=== PATIENT | male | born 1965 | race Caucasian/White ===

== ENCOUNTER 2025-08-05 21:12 | Emergency (ER) | payer BC, SELFPAY ==
--- NOTE | 2025-08-05 | ECG_ITS ---
Test Reason : DIZZINESS Blood Pressure : */* mmHG Vent. Rate : 66 BPM Atrial Rate : 66 BPM P-R Int : 188 ms QRS Dur : 100 ms QT Int : 412 ms P-R-T Axes : 19 24 37 degrees QTcB Int : 431 ms Normal sinus rhythm Normal ECG No previous ECGs available Referred By: Generic ED Physician Electronically Signed By: MANJEET AMAYA
--- NOTE | ~2025-08-05 | CT_ITS ---
CLINICAL HISTORY: syncope, head injury, n v CT head without contrast Comparison: None provided Findings: No intra-axial mass, midline shift, hydrocephalus, or acute hemorrhage. No significant atrophy-like change or white matter disease. The visualized paranasal sinuses and mastoid air cells are normal. The orbits are unremarkable. No skull fracture. IMPRESSION: 1. No acute intracranial findings. This document has been electronically signed by: Saeed Kaur MD on 08/05/2025 22:28:30
[2025-08-05 21:35] VITALS: BP 164/95; PULSE 66; RESP 20; TEMP 36.4; O2SAT 95; BMI 44.4
[2025-08-05 21:55] LABS: MANUAL DIFF FLAG NO
[2025-08-05 21:56] LABS: Hematocrit 42.4 % (42.0-52.0); Hemoglobin 14.1 g/dl (14.0-18.0); Imm Gran Abs Auto 0.16 X10*3/uL (0.00-0.03); Imm Gran Pct Auto 1.1 % (0.0-0.4); Lymphocytes Absolute Auto 3.2 X10*3/uL (1.2-4.9); Mean Corpuscular HGB Conc 33.3 g/dl (31.0-36.0); Mean Corpuscular Hemoglobin 26.9 pg (27.0-33.0); Mean Corpuscular Volume 80.8 fL (80.0-98.0); NRBC Abs Auto 0.000 X10*3/uL (0.0-0.012); NRBC Pct Auto 0.0 /100WBC (0.0-0.2); Platelet Count 413 X10*3/uL (160-400); Red Blood Count 5.25 X10*6/uL (4.60-5.80); SCAN SMEAR FLAG 1; White Blood Count 15.0 X10*3/uL (4.8-10.8)
[2025-08-05 22:14] LABS: Alanine Aminotransferase 29 U/L (0-40); Albumin Level 4.2 g/dL (3.5-5.0); Alkaline Phosphatase 127 U/L (39-117); Anion Gap 14 (12-20); Aspartate Amino Transferase 14 U/L (5-37); Blood Urea Nitrogen 27 mg/dL (9-16); Calcium 8.9 mg/dL (8.4-10.2); Carbon Dioxide 23 mmol/L (22-29); Chloride 102 mmol/L (96-108); Creatinine Clr Calc Pharmacy 92.1; Estimated Glomerular Filt Rate > 60; Potassium 3.7 mmol/L (3.3-5.1); Sodium 135 mmol/L (135-145); Total Protein 6.7 g/dL (6.5-8.0)
[2025-08-05 22:15] VITALS: O2SAT 96
--- OUTSIDE RECORDS SUMMARY | 2025-08-05 22:16 | XMS_ITS | Clinical Summary ---
Author Organization [facility] Address [address] [place] [address] Care Team Providers Care Mutton Puncher Name Role Phone Md, Unknown Primary Care Provider Unavailabl e Allergies Active Allergy Reactions Criticality Noted Date Comments Oxycodone-Acetaminop hen Hives,Itching,Nausea And Vomiting Medium 05/12/2016 Stomach itches itchy Stomach itches itchy Sulfamethoxazole-Tri methoprim Nausea And Vomiting Low 10/05/2024 Medications No known medications Active Problems No known active problems Social History Tobacco Use Types Packs/Day Years Used Date Smoking Tobacco: Never Assessed Sex and Gender Information Value Date Recorded Sex Assigned at Not on file Legal Sex Male 2:45 PM EST Gender Identity Not on file Sexual Orientation Not on file Last Filed Vital Signs Vital Sign Reading Time Taken Comments Blood Pressure 139/82 01/31/2025 6:38 PM EDT Pulse - - Temperature 37.3 C (99.2 F) 01/31/2025 6:38 PM EDT Respiratory Rate 18 01/31/2025 6:38 PM EDT Oxygen Saturation 97% 01/31/2025 6:38 PM EDT Inhaled Oxygen Concentration - - Weight 130.8 kg (288 lb 5.8 oz) 01/31/2025 6:38 PM EDT Height 175.3 cm (5' 9 ) 01/31/2025 6:38 PM EDT Body Mass Index 42.58 01/31/2025 6:38 PM EDT Plan of Treatment Scheduled Referrals Name Type Priority Associated Diagnoses Order Schedule Ambulatory referral to Physical Therapy Outpatient Referral Routine Concussion without loss of consciousness, initial encounter Sprain of ligaments of cervical spine, initial encounter Sprain of ligaments of lumbar spine, initial encounter Sprain of ligaments of thoracic spine, initial encounter Expected: 02/11/2025 (Approximate), Expires: 02/11/2026 Health Maintenance Due Date Last Done Comments CT Colonography 1963 FIT-DNA 1963 FIT 1963 FOBT 1963 Hepatitis C Screening 1963 Ophthalmology Exam 1973 Annual Physical Exam 1981 RSV 60+ (1 - Risk 50-74 years 1-dose series) 2013 COVID-19 Vaccine ( season) 2025 09/18/2023, 08/24/2021, 11/01/2020, Additional history exists Influenza Vaccine (#1) 2025 , 07/08/2023, 07/10/2022, Additional history exists Urine Protein Screening 10/07/2025 10/07/2024 Tdap and Td Vaccines Adult 01/17/2033 01/17/2023 Colonoscopy 06/04/2034 06/04/2024 Colorectal Cancer Screening 06/04/2034 Sigmoidoscopy 06/04/2034 06/04/2024 Lipid Panel Discontinued 12/11/2017 Pneumococcal Vaccine: 50+ Years Completed 01/17/2023 Zoster Vaccines Completed 03/21/2023, 01/17/2023 HIB Vaccines Aged Out 08/03/2024 No longer eligi ble based on patient's age to complete this topic Meningococcal Vaccine Aged Out 09/09/2024 , 09/09/2024, 08/03/2024, Additional history exists No longer eligible based on patient's age to complete this topic HPV Vaccines (No Doses Required) Completed Hepatitis A Vaccines Aged Out No long er eligible based on patient's age to complete this topic IPV Vaccines Aged Out No longer eligi ble based on patient's age to complete this topic RSV <20 Months Aged Out No longer naya gible based on patient's age to complete this topic Procedures Procedure Name Priority Date/Time Associated Diagnosis Comments LIPID PANEL WITH RATIOS Routine 12/11/2017 2:02 PM EDT from Last 3 Months or Most Recently Relevant to Health Maintenance Results * (ABNORMAL) Lipid Panel with Ratios (12/11/2017 2:02 PM EDT) HDL 51 >=39 mg/dL [facility] Triglycerides 364(H) 30 - 180 mg/dL [facility] Cholesterol 200(H) <=199 mg/dL [facility] % Total 26 [facility] LDL Calculated 76 <=129 mg/dL [facility] 12/11/2017 2:02 PM EDT 12/11/2017 2:02 PM EDT us Rhea Tena HAND ZIPPER TRIMMER LAB BLOOD ORDERABLES Final Res ult [facility]ULT[facility] from Last 3 Months or Most Recently Relevant to Health Maintenance Insurance [facility] Care Teams Mutton Puncher Relationship Specialty Start Date End Date Md, Unknown 1 Dont Change PCP - General 01/31/25
--- OUTSIDE RECORDS SUMMARY | 2025-08-05 22:16 | XMS_ITS | Encounter Summary ---
Author Organization [facility] Address [address] [place] [address] Care Team Providers Care Journeyman Electrician Name Role Phone Lawrence Casanova MD Primary Care Provider + [phone] Lawrence Casanova MD Unavailable [phone] Lydia Wyman DO Unavailable [phone] Katelin Frazier RN Unavailable Erick House DO Unavailable [phone] Sharita Pearson RN Unavailable [phone] Encounter Details Date Type Department Care Team (Late st Contact Info) Description 11/28/2020 Scanned Document [facility] Urologic Surgery [address] [place] [address] Mitchell Cuba MD Social History Tobacco Use Types Packs/Day Years Used Date Smoking Tobacco: Never Smokeless Tobacco: Never Alcohol Use Standard Drinks/Week Comments No 0 (1 standard drink = 0.6 oz pur e alcohol) Sex and Gender Information Value Date Recorded Sex Assigned at Male 10/24/2022 6:05 PM EST Legal Sex Male 6:13 PM EDT Gender Identity Male 10/24/2022 6:05 PM EST Sexual Orientation Heterosexual (straight) 10/24 6:05 PM EST COVID-19 Exposure Response Date Recorded In the last month, have you been in contact with someone who was confirmed or suspected to have Coronavirus / COVID-19? No / Unsure 11/27/2020 3:49 PM EDT documented as of this encounter Plan of Treatment Not on file documented as of this encounter Visit Diagnoses Not on filedocumented in this encounter Additional Health Concerns Infection Onset Date Last Indicated Resolved Time R/O Respiratory Disease 08/21/2024 08/21/202408/08 10:24 AM EST documented as of this encounter Care Teams Journeyman Electrician Relationship Specialty Start Date End Date Lawrence Casanova MD [address] [place] [address] PCP - General Family Medicine 04/07/19 Lawrence Casanova MD [address] [place] [address] PCP - [place] Commercial Attributed 08/08/22 09/07/23 Lydia Wyman DO [address] [place] [address] Primary Flight Security Specialist Cardiovascular Disease 10/18/21 Katelin Frazier RN [address] [place] [address] Oncology Nurse Navigator 07/29/24 Erick House DO [address] [phone] Physician Hematology Oncology 07/29/25 Sharita Pearson, WAGNER [address] [place] [phone] Oncology Nurse Navigator 07/29/25 documented as of this encounter
--- OUTSIDE RECORDS SUMMARY | 2025-08-05 22:16 | XMS_ITS | Encounter Summary ---
Author Organization [facility] Address [address] [place], [place] [address] Care Team Providers Care Vice President Sales Name Role Phone Lawrence Casanova MD Primary Care Provider [phone] Lydia Wyman DO Unavailable [phone] Katelin Frazier RN Unavailable Erick House DO Unavailable Sharita Pearson RN Unavailable Encounter Details Date Type Department Care Team (Late st Contact Info) Description 05/11/2025 Scanned Document [facility] [address] [phone] Chrissy Davidson [address] [facility] [address] [place] [address] Social History Tobacco Use Types Packs/Day Years Used Date Smoking Tobacco: Never Smokeless Tobacco: Never Alcohol Use Standard Drinks/Week Comments No 0 (1 standard drink = 0.6 oz pur e alcohol) [facility] Utilities Answer Date Recorded In the past 12 months has [employer] electric, gas, oil, or water company threatened to shut off services in your home? No 08/20/2024 AUDIT-C Answer Date Recorded Q1: How often do you have a drink containing alcohol? Never 08/03/2024 Q2: How many drinks containi ng alcohol do you have on a typical day when you are drinking? Patient does not drink Q3: How often do you have si x or more drinks on one occasion? Never 08/03/2024 PHQ-2 Answer Date Recorded PHQ-2 Total Score 0 12/14/2024 Hunger Vital Sign Answer Date Recorded Within the past 12 months, y ou worried that your food would run out before you got the money to buy more. Never true 08/20/20 24 Within the past 12 months, t he food you bought just didn't last and you didn't have money to get more. Never true 08/20/2024 PRAPARE - Transportation Answer Date Re corded In the past 12 months, has l ack of transportation kept you from medical appointments or from getting medications? No 08/08 In the past 12 months, has l ack of transportation kept you from meetings, work, or from getting things needed for daily living? No 08/20/2024 Housing Stability Vital Sign Answer Walter e Recorded In the last 12 months, was t here a time when you were not able to pay the mortgage or rent on time? No 08/20/2024 In the past 12 months, how m any times have you moved where you were living? 1 08/20/2024 At any time in the past 12 m [facility], were you homeless or living in a longterm (including now)? No 08/20/2024 Sex and Gender Information Value Date Recorded Sex Assigned at Male 10/24/2022 6:05 PM EST Legal Sex Male 6:13 PM EDT Gender Identity Male 10/24/2022 6:05 PM EST Sexual Orientation Heterosexual (straight) 10/24 6:05 PM EST documented as of this encounter Plan of Treatment Not on file documented as of this encounter Visit Diagnoses Not on filedocumented in this encounter Care Teams Vice President Sales Relationship Specialty Start Date End Date Lawrence Casanova MD [address] [place] [address] PCP - General Family Medicine 04/07/19 Lydia Wyman DO [address] [place] [address] Primary Manager Radiation Cardiovascular Disease 10/18/21 Katelin Frazier, WAGNER [address] [place] [address] Oncology Nurse Navigator 07/29/24 Erick House DO [address] [phone] Physician Hematology Oncology 07/29/25 Sharita Pearson RN [address] [phone] Oncology Nurse Navigator 07/29/25 documented as of this encounter
--- OUTSIDE RECORDS SUMMARY | 2025-08-05 22:16 | XMS_ITS | Encounter Summary ---
Author Organization [facility] Address [address] [place] [address] Care Team Providers Care Clinic Clerk Name Role Phone Md, Unknown Primary Care Provider Unavailabl e Encounter Details Date Type Department Care Team ([facility] st Contact Info) Description 01/31/2025 Procedure Pass [facility], Radiology (CT Scan) [address] [place] [address] [phone] Social History Tobacco Use Types Packs/Day Years Used Date Smoking Tobacco: Never Assessed Sex and Gender Information Value Date Recorded Sex Assigned at Not on file Legal Sex Male 2:45 PM EST Gender Identity Not on file Sexual Orientation Not on file documented as of this encounter Plan of Treatment Not on file documented as of this encounter Visit Diagnoses Not on filedocumented in this encounter Care Teams Clinic Clerk Relationship Specialty Start Date End Date Md, Unknown 1 Dont Change PCP - General 01/31/25 documented as of this encounter
--- OUTSIDE RECORDS SUMMARY | 2025-08-05 22:16 | XMS_ITS | Encounter Summary ---
Author Organization [facility] Address [address] [place] [address] Care Team Providers Care Bottom Polisher Name Role Phone Lawrence Casanova MD Primary Care Provider + [phone] Lawrence Casanova MD Unavailable [phone] Lydia Wyman DO Unavailable [phone] Katelin Frazier RN Unavailable Erick House DO Unavailable Sharita Pearson RN Unavailable Encounter Details Date Type Department Care Team (Late st Contact Info) Description 08/11/2023 Scanned Document [facility] [address] [place] [phone] Brittnee Hartman MD [address] [place] [address] Social History Tobacco Use Types Packs/Day Years [...] documented as of this encounter Care Teams Bottom Polisher Relationship Specialty Start Date End Date Lawrence Casanova MD [address] [place] [address] PCP - General Family Medicine 04/07/19 Lawrence Casanova MD [address] [place] [address] PCP - [place] Commercial Attributed 08/08/22 09/07/23 Lydia Wyman DO [address] [place] [address] Driver Cardiovascular Disease 10/18/21 Katelin Frazier RN [address] [place] [address] Oncology Nurse Navigator 07/29/24 Erick House DO [address] [phone] Physician Hematology Oncology 07/29/25 Sharita Pearson RN [address] [phone] Oncology Nurse Navigator 07/29/25 documented as of this encounter
--- OUTSIDE RECORDS SUMMARY | 2025-08-05 22:16 | XMS_ITS | Encounter Summary ---
Author Organization [facility] Address [address] [place] [address] Care Team Providers Care Electrical And Instrument Engineer Name Role Phone Lawrence Casanova MD Primary Care Provider [phone] Lydia Wyman DO Unavailable [phone] Katelin Frazier RN Unavailable [phone] Erick House DO Unavailable [phone] Sharita Pearson RN Unavailable [phone] Encounter Details Date Type Department Care Team (Late st Contact Info) Description 01/18/2025 Scanned Document [address] [facility] [address] [place] [phone] Provider, Generic Social History Tobacco Use Types Packs/Day Years Used Date Smoking Tobacco: Never Smokeless Tobacco: Never Alcohol Use Standard Drinks/Week Comments No 0 (1 standard drink = 0.6 oz pur e alcohol) [facility] Utilities Answer Date Recorded In the past 12 months has [employer], gas, oil, or water company threatened to [...] any time in the past 12 m [facility], were you homeless or living in a correction (including now)? No 08/20/2024 Sex and Gender [...] on filedocumented in this encounter Care Teams Electrical And Instrument Engineer Relationship Specialty Start Date End Date Lawrence Casanova MD [address] [place] [address] PCP - General Family Medicine 04/07/19 Lydia Wyman DO [address] [place] [address] Primary Cognos Architect Cardiovascular Disease 10/18/21 Katelin Frazier, RN [address] [place] [address] Oncology Nurse Navigator 07/29/24 Erick House DO 5 [facility] [address] [address] Physician Hematology Oncology 07/29/25 Sharita Pearson RN [address] [phone] Oncology Nurse Navigator 07/29/25 documented as of this encounter
--- OUTSIDE RECORDS SUMMARY | 2025-08-05 22:16 | XMS_ITS | Encounter Summary ---
Author Organization [facility] Address [address] [place] [address] Care Team Providers Care Boxing Machine Operator Name Role Phone Lawrence Casanova MD Primary Care Provider [phone] Lydia Wyman DO Unavailable [phone] Katelin Frazier RN Unavailable Erick House DO Unavailable [phone] Sharita Pearson RN Unavailable Encounter Details Date Type Department Care Team (Late st Contact Info) Description 05/30/2025 Scanned Document [facility] [address] [address] Kirt Dutton MD [address] [place] [address] [address] [place] [address] Social History Tobacco Use Types Packs/Day Years Used Date Smoking Tobacco: Never Smokeless Tobacco: Never Alcohol Use Standard Drinks/Week Comments No 0 (1 standard drink = 0.6 oz pur e alcohol) [facility] Utilities Answer Date Recorded In the past 12 months has [employer], gas, oil, or water company threatened [...] any time in the past 12 m [facility], were you homeless or living in a mcfp (including now)? No 08/20/2024 Sex and Gender [...] on filedocumented in this encounter Care Teams Boxing Machine Operator Relationship Specialty Start Date End Date Lawrence Casanova MD [address] [place] [address] PCP - General Family Medicine 04/07/19 Lydia Wyman DO [address] [place] [address] Primary Residential Sales Cardiovascular Disease 10/18/21 Katelin Frazier RN [address] [place] [address] Oncology Nurse Navigator 07/29/24 Erick House DO [address] [address] Physician Hematology Oncology 07/29/25 Sharita Pearson RN [address] [phone] Oncology Nurse Navigator 07/29/25 documented as of this encounter
--- OUTSIDE RECORDS SUMMARY | 2025-08-05 22:16 | XMS_ITS | Encounter Summary ---
Author Organization [facility] Address [address] [place] [address] Care Team Providers Care Railroad Inspector Name Role Phone Lawrence Casanova MD Primary Care Provider [phone] Lydia Wyman DO Unavailable [phone] Katelin Frazier RN Unavailable Erick House DO Unavailable [phone] Sharita Pearson RN Unavailable [phone] Encounter Details Date Type Department Care Team (Late st Contact Info) Description 06/21/2025 Scanned Document [facility] [address] [address] Kirt Dutton MD [address] [place] [address] Social History Tobacco Use Types Packs/Day Years Used Date Smoking Tobacco: Never Smokeless Tobacco: Never Alcohol Use Standard Drinks/Week Comments No 0 (1 standard drink = 0.6 oz pur e alcohol) [facility] Utilities Answer Date Recorded In the past 12 months has [employer] electric, gas, oil, or water company threatened [...] any time in the past 12 m [facility], were you homeless or living in a mcc (including now)? No 08/20/2024 Sex and Gender [...] on filedocumented in this encounter Care Teams Railroad Inspector Relationship Specialty Start Date End Date Lawrence Casanova MD [address] [place] [address] PCP - General Family Medicine 04/07/19 Lydia Wyman DO [address] [place] [address] Primary Rn Cardiac Rehab Cardiovascular Disease 10/18/21 Katelin Frazier RN [address] [place] [address] Oncology Nurse Navigator 07/29/24 Erick House DO [address] [phone] Physician Hematology Oncology 07/29/25 Sharita Pearson RN [address] [phone] Oncology Nurse Navigator 07/29/25 documented as of this encounter
--- OUTSIDE RECORDS SUMMARY | 2025-08-05 22:16 | XMS_ITS | Clinical Summary ---
Author Organization [facility] Address [address] [place] [address] Care Team Providers Care Marble Ceiling Installer Name Role Phone Yesenia Almaraz HEALTH AND SAFETY INSTRUCTOR Primary Care Provider [phone] Social History Tobacco Use Types Packs/Day Years Used Date Smoking Tobacco: Never Assessed Sex and Gender Information Value Date Recorded Sex Assigned at Not on file Legal Sex Male 1:37 PM EST Gender Identity Not on file Sexual Orientation Not on file Plan of Treatment Not on file Medical Devices Not on file Care Teams Marble Ceiling Installer Relationship Specialty Start Date End Date Yesenia Almaraz, HEALTH AND SAFETY INSTRUCTOR [address] [place] [address] PCP - General [facility] 09/18/23
--- OUTSIDE RECORDS SUMMARY | 2025-08-05 22:16 | XMS_ITS | Encounter Summary ---
Author Organization [facility] Address [address] [place] [address] Care Team Providers Care Insurance Agency Owner Name Role Phone Lawrence Casanova MD Primary Care Provider [phone] Lydia Wyman DO Unavailable [phone] Katelin Frazier RN Unavailable [phone] Erick House DO Unavailable [phone] Sharita Pearson RN Unavailable [phone] Encounter Details Date Type Department Care Team (Late st Contact Info) Description 06/10/2025 Scanned Document [facility] [address] [place] [phone] Daniel Muller MD [address] [facility] [address] [place] [address] Social History Tobacco Use Types Packs/Day Years Used Date Smoking Tobacco: Never Smokeless Tobacco: Never Alcohol Use Standard Drinks/Week Comments No 0 (1 standard drink = 0.6 oz pur e alcohol) [facility] Utilities Answer Date Recorded In the past 12 months has [employer] electric, gas, oil, or water company threatened [...] any time in the past 12 m [facility], were you homeless or living in a assisted (including now)? No 08/20/2024 Sex and Gender [...] on filedocumented in this encounter Care Teams Insurance Agency Owner Relationship Specialty Start Date End Date Lawrence Casanova MD [address] [place] [address] PCP - General Family Medicine 04/07/19 Lydia Wyman DO [address] [place] [address] Primary Piece Meat Trimmer Cardiovascular Disease 10/18/21 Katelin Frazier RN [address] [place] [address] Oncology Nurse Navigator 07/29/24 Erick House DO [address] [phone] Physician Hematology Oncology 07/29/25 Sharita Pearson RN [address] [phone] Oncology Nurse Navigator 07/29/25 documented as of this encounter
--- OUTSIDE RECORDS SUMMARY | 2025-08-05 22:16 | XMS_ITS | Encounter Summary ---
Author Organization [facility] Address [address] [place] [address] Care Team Providers Care Early Morning Babysitter Name Role Phone Lawrence Casanova MD Primary Care Provider [phone] Lydia Wyman DO Unavailable [phone] Katelin Frazier RN Unavailable Erick House DO Unavailable [phone] Sharita Pearson RN Unavailable [phone] Encounter Details Date Type Department Care Team (Late st Contact Info) Description 07/12/2025 Scanned Document [facility] [address] [address] Giselle Matthews MA [address] [place] [address] [phone] Social History Tobacco Use Types Packs/Day Years Used Date Smoking Tobacco: Never Smokeless Tobacco: Never Alcohol Use Standard Drinks/Week Comments No 0 (1 standard drink = 0.6 oz pur e alcohol) [facility] Utilities Answer Date Recorded In the past 12 months has e electric, gas, oil, or water company threatened [...] any time in the past 12 m [facility], were you homeless or living in a care home (including now)? No 08/20/2024 Sex and Gender [...] on filedocumented in this encounter Care Teams Early Morning Babysitter Relationship Specialty Start Date End Date Lawrence Casanova MD [address] [place] [address] PCP - General Family Medicine 04/07/19 Lydia Wyman DO [address] [place] [address] Primary Supervisor Lime Cardiovascular Disease 10/18/21 Katelin Frazier, RN [address] [place] [address] Oncology Nurse Navigator 07/29/24 Erick House DO [address] [phone] Physician Hematology Oncology 07/29/25 Sharita Pearson RN [address] [phone] Oncology Nurse Navigator 07/29/25 documented as of this encounter
--- OUTSIDE RECORDS SUMMARY | 2025-08-05 22:16 | XMS_ITS | Encounter Summary ---
Author Organization [facility] Address [address] [place] [address] Care Team Providers Care Television Production Clerk Name Role Phone Lawrence Casanova MD Primary Care Provider + [phone] Lawrence Casanova MD Unavailable [phone] Lydia Wyman DO Unavailable Katelin Frazier RN Unavailable Erick House DO Unavailable [phone] Sharita Pearson RN Unavailable [phone] Reason for Referral * ENT (Urgent) - Closed Specialty Diagnoses / Procedures Referred By Faraz mcclure Referred To Contact Otolaryngology Diagnoses Recurrent acute suppurative otitis media of right ear Celio Yung, CAT DOG OR OTHER PET GROOMER [address] [place] [address] Phone: tel: fax: [facility] [address] [address] Phone: tel: fax: Referral ID Status Reason Start Date Expiration Date V isits Requested Visits Authorized [id number] Closed Specialty Services Required 01/07/2022 01/08/2023 1 1 Comments Please see mutual patient for ruptured TM - first 11/23/21. ? recurrent vs not healed on 01/04. With hearing loss and infection Encounter Details Date Type Department Care Team (Late st Contact Info) Description 01/07/2022 Community Orders [facility] [address] [facility] [place] [address] Celio Yung APRN [address] [facility] [place], [place] [id number] Recurrent acute suppurative otitis media of right ear (Primary Dx) Social History Tobacco Use Types Packs/Day Years [...] as of this encounter Plan of Treatment Scheduled Referrals Name Type Priority Associated Diagnoses Orde r Schedule Amb Referral to ENT Outpatient Referral Routine Recurrent acute suppurative otitis media of right ear Ordered: 01/07/2022 documented as of this encounter Visit Diagnoses Diagnosis Recurrent acute suppurative otitis media of right ear- Primary documented in this encounter Additional Health Concerns Infection Onset Date Last Indicated Resolved Time R/O Respiratory Disease 08/21/2024 08/21/202408/08 10:24 AM EST documented as of this encounter Care Teams Television Production Clerk Relationship Specialty Start Date End Date Lawrence Casanova MD [address] [facility] [place], [place] [id number] PCP - General Family Medicine 04/07/19 Lawrence Casanova MD [address] [facility] [place] [address] PCP - [place] Commercial Attributed 08/08/22 09/07/23 Lydia Wyman DO [address] [place] [address] Primary Automobile Relocation Engineer Cardiovascular Disease 10/18/21 Katelin Frazier RN [address] [place] [address] Oncology Nurse Navigator 07/29/24 Erick House DO 5 [facility] [address] [address] Physician Hematology Oncology 07/29/25 Sharita Pearson RN [address] [phone] Oncology Nurse Navigator 07/29/25 documented as of this encounter
--- OUTSIDE RECORDS SUMMARY | 2025-08-05 22:16 | XMS_ITS | Encounter Summary ---
Author Organization [facility] Address [address] [place] [address] Care Team Providers Care Septic Tank Service Technician Name Role Phone Lawrence Casanova MD Primary Care Provider + [phone] Lawrence Casanova MD Unavailable [phone] Mitch Rodriguez MD Unavailable [phone] Lydia Wyman DO Unavailable Katelin Frazier RN Unavailable Erick House DO Unavailable [phone] Sharita Pearson RN Unavailable Encounter Details Date Type Department Care Team (Late st Contact Info) Description 12/10/2019 Scanned Document [address], [address] [place] [address] Elle Fuller APRN [address] [place] [address] Social History Tobacco Use Types Packs/Day Years [...] have Coronavirus / COVID-19? No / Unsure 12/09/2019 10:05 AM EDT documented as of this encounter Plan of Treatment Not on file documented as of this encounter Visit Diagnoses Not on filedocumented in this encounter Additional Health Concerns Infection Onset Date Last Indicated Resolved Time R/O Respiratory Disease 08/21/2024 08/21/202408/08 10:24 AM EST documented as of this encounter Care Teams Septic Tank Service Technician Relationship Specialty Start Date End Date Lawrence Casanova MD [address] [place] [address] PCP - General Family Medicine 04/07/19 Lawrence Casanova MD [address] [place] [address] PCP - [place] Commercial Attributed 08/08/22 09/07/23 Mitch Rodriguez MD [address] [place] [address] PCP - [place] Commercial Attributed 05/09/19 06/07/20 Lydia Wyman DO [address] [place] [address] Primary Radiation Control Health Physicist Cardiovascular Disease 10/18/21 Katelin Frazier, RN [address] [place] [address] Oncology Nurse Navigator 07/29/24 Erick House DO [address] [place] [phone] Physician Hematology Oncology 07/29/25 Sharita Pearson RN [address] [address] Oncology Nurse Navigator 07/29/25 documented as of this encounter
--- OUTSIDE RECORDS SUMMARY | 2025-08-05 22:16 | XMS_ITS | Encounter Summary ---
Author Organization [facility] Address [address] [place] [address] Care Team Providers Care Fireperson Name Role Phone Lawrence Casanova MD Primary Care Provider [phone]- [phone] Lydia Wyman DO Unavailable [phone] Katelin Frazier RN Unavailable Erick House DO Unavailable [phone] Sharita Pearson RN Unavailable [phone] Encounter Details Date Type Department Care Team (Late st Contact Info) Description 06/27/2025 Scanned Document [facility] [address] [phone] Chrissy Davidson [address] [place] [address] Social History Tobacco Use Types Packs/Day Years Used Date Smoking Tobacco: Never Smokeless Tobacco: Never Alcohol Use Standard Drinks/Week Comments No 0 (1 standard drink = 0.6 oz pur e alcohol) [place] Utilities Answer Date Recorded In the past 12 months has [employer] electric, gas, oil, or water company threatened [...] any time in the past 12 m [facility], were you homeless or living in a [place] [facility] facility (including now)? No 08/20/2024 Sex and Gender [...] on filedocumented in this encounter Care Teams Fireperson Relationship Specialty Start Date End Date Lawrence Casanova MD [address] [place] [address] PCP - General Family Medicine 04/07/19 Lydia Wyman DO [address] [place] [address] Primary Mica Laminating Machine Feeder Cardiovascular Disease 10/18/21 Katelin Frazier, WAGNER [address] [place] [address] Oncology Nurse Navigator 07/29/24 Erick House DO [address] [phone] Physician Hematology Oncology 07/29/25 Sharita Pearson RN [address] [phone] Oncology Nurse Navigator 07/29/25 documented as of this encounter
--- OUTSIDE RECORDS SUMMARY | 2025-08-05 22:16 | XMS_ITS | Encounter Summary ---
Author Organization [facility] Address [address] [place] [address] Care Team Providers Care Chancellor Name Role Phone Lawrence Casanova MD Primary Care Provider [phone] Lydia Wyman DO Unavailable [phone] Katelin Frazier RN Unavailable [phone] Erick House DO Unavailable [phone] Sharita Pearson RN Unavailable [phone] Encounter Details Date Type Department Care Team (Late st Contact Info) Description 03/19/2024 Scanned Document [facility] Urologic Surgery [address] [place] [phone] Celio Yung, KNOCKOUT WORKER [address] [place], [place] [id number] Social History Tobacco Use Types Packs/Day Years [...] documented as of this encounter Care Teams Chancellor Relationship Specialty Start Date End Date Lawrence Casanova MD [address] [place] [address] PCP - General Family Medicine 04/07/19 Lydia Wyman DO [address] [place] [address] Primary Litigation Manager Cardiovascular Disease 10/18/21 Katelin Frazier RN [address] [place] [address] Oncology Nurse Navigator 07/29/24 Erick House DO [address] [phone] Physician Hematology Oncology 07/29/25 Sharita Pearson RN [address] [phone] Oncology Nurse Navigator 07/29/25 documented as of this encounter
--- OUTSIDE RECORDS SUMMARY | 2025-08-05 22:16 | XMS_ITS | Encounter Summary ---
Author Organization [facility] Address [address] [place] [address] Care Team Providers Care Pipe Welder Name Role Phone Lawrence Casanova MD Primary Care Provider [phone] Lydia Wyman DO Unavailable [phone] Katelin Frazier RN Unavailable Erick House DO Unavailable [phone] Sharita Pearson RN Unavailable [phone] Encounter Details Date Type Department Care Team (Late st Contact Info) Description 05/25/2025 Scanned Document [facility] [address] [phone] Kirt Dutton MD [address] [place] [address] Social History Tobacco Use Types Packs/Day Years Used Date Smoking Tobacco: Never Smokeless Tobacco: Never Alcohol Use Standard Drinks/Week Comments No 0 (1 standard drink = 0.6 oz pur e alcohol) [facility] Utilities Answer Date Recorded In the past 12 months has [employer] electric, gas, oil, or water company threatened [...] time in the past 12 m [facility], were you homeless or living in a prison (including now)? No 08/20/2024 Sex and Gender [...] on filedocumented in this encounter Care Teams Pipe Welder Relationship Specialty Start Date End Date Lawrence Casanova MD [address] [place] [address] PCP - General Family Medicine 04/07/19 Lydia Wyman DO [address] [place] [address] Primary Expense Clerk Cardiovascular Disease 10/18/21 Katelin Frazier RN [address] [place] [address] Oncology Nurse Navigator 07/29/24 Erick House DO [address] [phone] Physician Hematology Oncology 07/29/25 Sharita Pearson RN [address] [phone] Oncology Nurse Navigator 07/29/25 documented as of this encounter
--- OUTSIDE RECORDS SUMMARY | 2025-08-05 22:16 | XMS_ITS | Encounter Summary ---
Author Organization [facility] Address [address] [place] [address] Care Team Providers Care Senior Information Security Architect Name Role Phone Lawrence Casanova MD Primary Care Provider [phone] Lydia Wyman DO Unavailable [phone] Katelin Frazier RN Unavailable [phone] Erick House DO Unavailable Sharita Pearson RN Unavailable [phone] Encounter Details Date Type Department Care Team (Late st Contact Info) Description 05/23/2025 Scanned Document [facility] [address] [phone] Kirt Dutton MD [address] [place] [address] [address] [place] [address] Social History Tobacco Use Types Packs/Day Years Used Date Smoking Tobacco: Never Smokeless Tobacco: Never Alcohol Use Standard Drinks/Week Comments No 0 (1 standard drink = 0.6 oz pur e alcohol) [facility] Utilities Answer Date Recorded In the past 12 months has [employer] electric, gas, oil, or water company threatened [...] were you homeless or living in a [facility]ci (including now)? No 08/20/2024 Sex and Gender [...] on filedocumented in this encounter Care Teams Senior Information Security Architect Relationship Specialty Start Date End Date Lawrence Casanova MD [address] [place] [address] PCP - General Family Medicine 04/07/19 Lydia Wyman DO [address] [place] [address] Primary Workers Compensation Specialist Cardiovascular Disease 10/18/21 Katelin Frazier RN [address] [place] [address] Oncology Nurse Navigator 07/29/24 Erick House DO [address] [address] Physician Hematology Oncology 07/29/25 Sharita Pearson RN [address] [phone] Oncology Nurse Navigator 07/29/25 documented as of this encounter
--- OUTSIDE RECORDS SUMMARY | 2025-08-05 22:16 | XMS_ITS | Encounter Summary ---
Author Organization [facility] Address [address] [place] [address] Care Team Providers Care Pick Up Truck Driver Name Role Phone Lawrence Casanova MD Primary Care Provider [phone] Lydia Wyman DO Unavailable Katelin Frazier RN Unavailable Erick House DO Unavailable [phone] Sharita Pearson RN Unavailable Encounter Details Date Type Department Care Team (Late st Contact Info) Description 11/24/2023 Scanned Document [facility] [address] [place] [address] Brittnee Hartman MD [address] [place], [place] [phone] Social History Tobacco Use Types Packs/Day Years [...] documented as of this encounter Care Teams Pick Up Truck Driver Relationship Specialty Start Date End Date Lawrence Casanova MD [address] [place] [address] PCP - General Family Medicine 04/07/19 Lydia Wyman DO [address] [place] [address] Primary Quality Assurance Director Cardiovascular Disease 10/18/21 Katelin Frazier RN [address] [place] [address] Oncology Nurse Navigator 07/29/24 Erick House DO [address] [address] Physician Hematology Oncology 07/29/25 Sharita Pearson RN [address] [address] Oncology Nurse Navigator 07/29/25 documented as of this encounter
--- OUTSIDE RECORDS SUMMARY | 2025-08-05 22:16 | XMS_ITS | Encounter Summary ---
Author Organization [facility] Address [address] [place] [address] Care Team Providers Care Frame Fixer Name Role Phone Lawrence Casanova MD Primary Care Provider [phone]- [phone] Lydia Wyman DO Unavailable [phone] Katelin Frazier RN Unavailable Erick House DO Unavailable Sharita Pearson RN Unavailable [phone] Encounter Details Date Type Department Care Team (Late st Contact Info) Description 03/30/2025 Scanned Document [facility] [address] [phone] Chrissy Davidson [address] [place] [address] Social History Tobacco Use Types Packs/Day Years Used Date Smoking Tobacco: Never Smokeless Tobacco: Never Alcohol Use Standard Drinks/Week Comments No 0 (1 standard drink = 0.6 oz pur e alcohol) [facility] Utilities Answer Date Recorded In the past 12 months has [employer] electric, gas, oil, or water company threatened [...] in the past 12 m [facility], were you homeless or living in a halfway (including now)? No 08/20/2024 Sex and Gender [...] on filedocumented in this encounter Care Teams Frame Fixer Relationship Specialty Start Date End Date Lawrence Casanova MD [address] [place] [address] PCP - General Family Medicine 04/07/19 Lydia Wyman DO [address] [place] [address] Primary Social Media Job Titles Cardiovascular Disease 10/18/21 Katelin Frazier, WAGNER [address] [place] [address] Oncology Nurse Navigator 07/29/24 Erick House DO [address] [phone] Physician Hematology Oncology 07/29/25 Sharita Pearson RN [address] [phone] Oncology Nurse Navigator 07/29/25 documented as of this encounter
--- OUTSIDE RECORDS SUMMARY | 2025-08-05 22:16 | XMS_ITS | Encounter Summary ---
Author Organization [facility] Address [address] [place] [address] Care Team Providers Care Rat Farmer Name Role Phone Lawrence Casanova MD Primary Care Provider [phone] Lydia Wyman DO Unavailable Katelin Frazier RN Unavailable [phone] Erick House DO Unavailable [phone] Sharita Pearson RN Unavailable [phone] Encounter Details Date Type Department Care Team (Late st Contact Info) Description 03/23/2025 Scanned Document [facility] [address] [phone] Chrissy Davidson [address] [place] [address] Social History Tobacco Use Types Packs/Day Years Used Date Smoking Tobacco: Never Smokeless Tobacco: Never Alcohol Use Standard Drinks/Week Comments No 0 (1 standard drink = 0.6 oz pur e alcohol) [facility] Utilities Answer Date Recorded In the past 12 months has [employer] electric, gas, oil, or water company threatened [...] any time in the past [address] [facility], were you homeless or living in a detention (including now)? No 08/20/2024 Sex and Gender [...] on filedocumented in this encounter Care Teams Rat Farmer Relationship Specialty Start Date End Date Lawrence Casanova MD [address] [place] [address] PCP - General Family Medicine 04/07/19 Lydia Wyman DO [address] [place] [address] Primary Cosmetology Educator Cardiovascular Disease 10/18/21 Katelin Frazier, WAGNER [address] [place] [address] Oncology Nurse Navigator 07/29/24 Erick House DO [address] [phone] Physician Hematology Oncology 07/29/25 Sharita Pearson RN [address] [phone] Oncology Nurse Navigator 07/29/25 documented as of this encounter
--- OUTSIDE RECORDS SUMMARY | 2025-08-05 22:16 | XMS_ITS | Encounter Summary ---
Author Organization [facility] Address [address] [place] [address] Care Team Providers Care Weeder Thinner Name Role Phone Lawrence Casanova MD Primary Care Provider +1- [phone] Lydia Wyman DO Unavailable [phone] Katelin Frazier RN Unavailable [phone] Erick House DO Unavailable [phone] Sharita Pearson RN Unavailable [phone] Encounter Details Date Type Department Care Team (Late st Contact Info) Description 11/17/2024 Scanned Document [facility] [address] [address] Lydia Wyman, DO [address] [place] [address] Social History Tobacco Use Types Packs/Day Years Used Date Smoking Tobacco: Never Smokeless Tobacco: Never Alcohol Use Standard Drinks/Week Comments No 0 (1 standard drink = 0.6 oz pur e alcohol) [facility] Utilities Answer Date Recorded In the past 12 months has [employer] electric, gas, oil, or water company threatened [...] Answer Date Recorded PHQ-2 Total Score 0 08/19/2024 [place] Vital Sign Answer Date Recorded Within [...] any time in the past 12 m [facility], were you homeless or living in a [...] on filedocumented in this encounter Care Teams Weeder Thinner Relationship Specialty Start Date End Date Lawrence Casanova MD [address] [place] [address] PCP - General Family Medicine 04/07/19 Lydia Wyman DO [address] [place] [address] Primary Productivity Engineer Cardiovascular Disease 10/18/21 Katelin Frazier RN [address] [place] [address] Oncology Nurse Navigator 07/29/24 Erick House DO [address] [phone] Physician Hematology Oncology 07/29/25 Sharita Pearson RN [address] [phone] Oncology Nurse Navigator 07/29/25 documented as of this encounter
--- OUTSIDE RECORDS SUMMARY | 2025-08-05 22:16 | XMS_ITS | Encounter Summary ---
Author Organization [facility] Address [address] [place] [address] Care Team Providers Care Aircraft Stress Analyst Name Role Phone Lawrence Casanova MD Primary Care Provider [phone] Lydia Wyman DO Unavailable Katelin Frazier RN Unavailable Erick House DO Unavailable [phone] Sharita Pearson RN Unavailable Encounter Details Date Type Department Care Team (Late st Contact Info) Description 01/14/2025 Scanned Document [facility] Department of Internal Medicine & Nephrology [address] [place] [phone] Ramón Vo MD [address] [address] Social History Tobacco Use Types Packs/Day Years Used Date Smoking Tobacco: Never Smokeless Tobacco: Never Alcohol Use Standard Drinks/Week Comments No 0 (1 standard drink = 0.6 oz pur e alcohol) [facility] Utilities Answer Date Recorded In [...] any time in the past 12 m [facility], were you homeless or living in [...] on file documented as of this encounter Procedures Procedure Name Priority Date/Time Associated Diagnosis Comments LAB RESULT 01/14/2025 3:06 AM EDT documented in this encounter Results * LAB RESULT (01/14/2025 3:06 AM EDT) Ramón Vo MD HX AMB PROCEDURES Final Resul t documented in this encounter Visit Diagnoses Not on filedocumented in this encounter Care Teams Aircraft Stress Analyst Relationship Specialty Start Date End Date Lawrence Casanova MD [address] [place] [address] PCP - General Family Medicine 04/07/19 Lydia Wyman DO [address] [place] [address] Primary Chairman & Ceo Cardiovascular Disease 10/18/21 Katelin Frazier, WAGNER [address] [place] [address] Oncology Nurse Navigator 07/29/24 Erick House DO [address] [phone] Physician Hematology Oncology 07/29/25 Sharita Pearson RN [address] [phone] Oncology Nurse Navigator 07/29/25 documented as of this encounter
--- OUTSIDE RECORDS SUMMARY | 2025-08-05 22:16 | XMS_ITS | Clinical Summary ---
Author Organization [facility] Address [address] [place] [address] Care Team Providers Care Custom Seamstress Name Role Phone Lawrence Casanova MD Primary Care Provider [phone] Allergies Active Allergy Reactions Criticality Noted Date Comments Oxycodone-Acetaminop hen Hives,Itching,Nausea And Vomiting Medium 05/12/2016 Stomach itches itchy Sulfamethoxazole-Tri methoprim Nausea And Vomiting Low 10/05/2024 Medications acetaminophen (TYLENOL) 325 mg tablet Take 650 mg by mouth every 6 hours as needed. Active albuterol HFA 90 mcg/actuation inhaler Inhale 2 puffs every 6 hours as needed. Active albuterol sulfate (ProAir RespiClick) 90 mcg/actuation aerosol powdr breath activated TAKE 2 PUFFS EVERY 4 TO 6 HOURS NEEDED 05/06/20 19 Active acetaminophen (TYLENOL) 500 mg tablet Take 1,000 mg by mouth every 6 (six) hours as needed for mild pain (1-3). Active Alcohol Prep Pads pads, medicated See admin instructions. 11/10/19 25 Active amLODIPine (NORVASC) 10 mg tablet Take 10 mg by mouth. 03/11/20 24 Active atorvastatin (LIPITOR) 20 mg tablet Atorvastatin Calcium 20 MG Oral Tablet QTY: 90 tablet Days: 90 Refills: 0 Written: 05/07/24 Patient Instructions: 01/30/20 24 Active OneTouch Ultra Test strip 08/23/20 24 Active Dexcom G7 Sensor device CHANGE SENSOR EVERY 10 DAYS 12/03/19 25 Active clotrimazole (LOTRIMIN) 1 % cream Apply topically daily as needed. Active clotrimazole-bet amethasone (LOTRISONE) cream Clotrimazole-Betam ethasone 1-0.05% External Cream QTY: 45 gram Days: 30 Refills: 0 Written: 09/11/20 Patient Instructions: apply to affected area BID 09/11/19 Active docusate sodium (COLACE) 100 mg capsule TAKE 1 CAPSULE BY MOUTH 2 TIMES A DAY. WHILE TAKING PAIN MEDICATION TO PREVENT CONSTIPATION 07/14/20 Active famotidine (PEPCID) 40 mg tablet Take 40 mg by mouth nightly. 09/03/20 Active diphenhydrAMINE (BENADRYL) 25 mg capsule Take 25 mg by mouth. Active desloratadine (CLARINEX) 5 mg tablet Take 5 mg by mouth once daily as needed. 11/10/19 Active fluticasone 500 mcg-salmeteroL 50 mcg/dose blistr powdr for inhalation Inhale 1 puff in the morning and 1 puff before bedtime. 09/03/20 Active fluticasone 250 mcg-salmeteroL 50 mcg/dose blistr powdr for inhalation Inhale 1 puff in the morning and 1 puff before bedtime. Active gabapentin (NEURONTIN) 300 mg capsule TAKE 1 CAPSULE BY MOUTH EVERY 8 HOURS AROUND THE CLOCK. 08/31/20 Active glipiZIDE (GLUCOTROL XL) 5 mg 24 hr tablet Take 5 mg by mouth in the morning. 07/28/20 Active HYDROmorphone (DILAUDID) 2 mg tablet TAKE 1 TABLET BY MOUTH EVERY 4 HOURS NEEDED FOR MODERATE TO SEVERE PAIN MAX DAILY:12 MG 08/24/20 24 Active NovoLOG Flexpen U-100 Insulin 100 unit/mL (3 mL) insulin pen 08/23/20 24 Active Fiasp FlexTouch U-100 Insulin 100 unit/mL (3 mL) insulin pen Fiasp FlexTouch 100 UNIT/ML Subcutaneous Solution Pen-injector QTY: 30 Days: 84 Refills: 0 Written: 10/11/24 Patient Instructions: 22 units with meals 08/23/20 24 Active Tresiba FlexTouch U-100 100 unit/mL (3 mL) insulin pen Tresiba FlexTouch 100 UNIT/ML Subcutaneous Solution Pen-injector QTY: 15 Days: 90 Refills: 0 Written: 11/09/24 Patient Instructions: 22 units with meals 11/10/19 25 Active Lantus Solostar U-100 Insulin 100 unit/mL (3 mL) insulin pen 08/23/20 24 Active insulin glargine-yfgn 100 unit/mL (3 mL) insulin pen INJECT 18 UNITS SUBCUTANEOUSLY DAILY 09/16/19 25 Active ipratropium (ATROVENT) 42 mcg (0.06 %) nasal spray SPRAY 2 SPRAYS INTO INTO EACH NOSTRIL 3 TIMES A DAY NEEDED FOR RHINITIS 11/02/19 25 Active tadalafiL (CIALIS) 10 mg tablet Take 10 mg by mouth daily as needed. Active tamsulosin (FLOMAX) capsule Tamsulosin HCl 0.4 MG Oral Capsule QTY: 180 capsule Days: 90 Refills: 3 Written: 12/02/24 Patient Instructions: Take 2 pillls once a day 08/02/20 24 Active valACYclovir (VALTREX) 500 mg tablet Take 500 mg by mouth in the morning. 12/13/19 19 Active sertraline (ZOLOFT) 25 mg tablet Take 50 mg by mouth. 03/23/20 19 Active Ozempic 2 mg/dose (8 mg/3 mL) subcutaneous pen injector inject 2 mg subcutaneously weekly 06/30/20 24 Active phenazopyridine (PYRIDIUM) 200 mg tablet Take 200 mg by mouth. 08/02/20 24 Active BD Jackie 2nd Gen Pen Needle 32 gauge x 5/32 needle 12/14/19 25 Active pantoprazole (PROTONIX) 40 mg EC tablet Take 40 mg by mouth in the morning. 11/02/19 25 Active oxybutynin XL (DITROPAN-XL) 5 mg 24 hr tablet take 1 tablet (5 mg total) by mouth daily. 08/02/20 24 Active neomycin-polymyx in-HC (CORTISPORIN) 3.5-10,000-1 mg/mL-unit/mL-% otic suspension Administer 4 drops into affected ear(s). 01/09/20 22 Active neomycin-polymyx in-HC (CORTISPORIN) otic solution DIRECTED 2 DROPS AFFECTED EAR 3 TIMES A DAY X 1 WEEK 07/28/20 24 Active naproxen (NAPROSYN) 250 mg tablet Take 250 mg by mouth. Active mupirocin (BACTROBAN) 2 % ointment apply to affected area twice a day 12/03/19 25 Active mometasone (ELOCON) 0.1 % ointment Apply topically daily. 10/12/19 25 Active mometasone (NASONEX) 50 mcg/actuation nasal spray Administer 1 spray into affected nostril(s). Active metoprolol succinate XL (TOPROL-XL) 200 mg 24 hr tablet Take 200 mg by mouth in the morning. 06/08/20 24 Active methocarbamoL (ROBAXIN) 500 mg tablet Take 500 mg by mouth in the morning and 500 mg at noon and 500 mg in the evening and 500 mg before bedtime. 09/03/20 24 Active metFORMIN (GLUCOPHAGE) 500 mg tablet Take 500 mg by mouth in the morning. Active melatonin 3 mg capsule Take 6 mg by mouth. Active lisinopriL-hydro chlorothiazide (PRINZIDE) 20-12.5 mg per tablet Take 2 tablets by mouth in the morning. 12/20/19 19 Active OneTouch Delica Plus Lancet 30 gauge misc 08/23/20 24 Active levoFLOXacin (LEVAQUIN) 750 mg tablet Take 750 mg by mouth in the morning. 09/17/19 25 Active ciclopirox (LOPROX) 0.77 % creamIndications :Tinea pedis of both feet Gently massage into affected areas and surrounding skin twice a day. 90 g 1 12/15/19 25 Active ibuprofen 800 mg tablet take 1 tablet every 6 to 8 hours as needed for pain 12/21/19 Active Active Problems Problem Noted Date Diagnosed Date Type 1 diabetes mellitus with hyperglycemia 12/2024 Hypertension 11/09/2024 Pancreatic tumor 08/19/2024 Nephrolithiasis 07/12/2024 Pancreatic mass 05/19/2024 Epigastric pain 05/04/2024 Bloating 05/04/2024 Chronic intractable headache 02/11/2022 Intractable chronic post-traumatic headache 10/09 Chest pain 10/18/2021 Hydronephrosis of left kidney 11/02/2020 Impaired glucose tolerance 08/25/2019 Snoring 02/23/2019 Obstructive sleep apnea on CPAP 02/23/2019 Fatigue 02/23/2019 Allergic rhinitis 02/23/2019 Obesity 01/25/2019 Gastroesophageal reflux disease 01/25/2019 Benign essential hypertension 01/25/2019 Asthma 01/25/2019 Anxiety disorder 01/25/2019 Hypogonadism in male 01/25/2019 Chronic obstructive lung disease 02/19/2018 Benign prostatic hyperplasia 02/19/2018 Obesity (BMI 30-39.9) 03/07/2016 Immunizations Immunization Administration Dates Next Due Influenza, Injectable, Mdck, Preservative Free, Quadrivalt 09/15/2018 Hib (PRP-T) 08/03/2024 Influenza, Injectable, Quadr ivalent, Preservative Free 06/22/2024,07/08/2023,08/21/2021 Influenza, Quadrivalent 07/10/2022 Influenza, Unspecified 07/14/2020,12/31/2019, Meningococcal B Omv Vaccine 09/09/2024, 4 Meningococcal Conjugate MCV4O 09/09/2024, 024 PNEUMOCOCCAL CONJUGATE PCV-20 01/17/2023 Shingrix (Zoster Recombinant) 03/21/2023, 023 Tdap 01/17/2023 Family History Medical History Relation Comments Diabetes Father Diabetes Mother Relation Status Comments Father Mother Social History Tobacco Use Types Packs/Day Years Used Date Smoking Tobacco: Never Smokeless Tobacco: Never Tobacco Cessation:Counseling Given: Not Answered Alcohol Use Standard Drinks/Week Comments Not Currently 0 (1 standard drink = 0.6 oz pur e alcohol) Sex and Gender Information Value Date Recorded Sex Assigned at Not on file Legal Sex Male 3:46 PM EDT Gender Identity Not on file Sexual Orientation Not on file Plan of Treatment Health Maintenance Due Date Last Done Comments CT Colonography 1963 Colonoscopy 1963 Colorectal Cancer Screening 1963 Diabetes: Kidney Health Evaluation 1963 FIT-DNA (Cologuard) 1963 FIT 1963 FOBT 1963 Flex Sigmoidoscopy - 5y 1963 HIV Screening 1963 Diabetes: Retinopathy Screening 1981 Hepatitis C Screening 1981 COVID-19 Vaccine ( season) 2025 09/18/2023, 08/24/2021, 11/01/2020, Additional history exists Influenza Vaccine (#1) 2025 , 07/08/2023, 07/10/2022, Additional history exists Diabetes: Hemoglobin A1C 08/19/2025 02/17/2025, 03/0 12/2024 DTaP,Tdap,and Td Vaccines (2 - Td or Tdap) 01/17/2033 01/17/2023 Pneumococcal Vaccine, 50+ Years Completed 01/17/2023 Zoster Vaccines Completed 03/21/2023, 01/17/2023 Meningococcal Vaccine Aged Out 09/09/2024, 024 No longer eligible based on patient's age to complete this topic Diabetes: Urine Microalbumin Discontinued 10/07/2024 HPV Vaccines Aged Out No longer eligi ble based on patient's age to complete this topic Hepatitis A Vaccines Aged Out No long er eligible based on patient's age to complete this topic MMR Vaccines Aged Out No longer eligi ble based on patient's age to complete this topic Insurance [facility] [place] Address: [address] [address] Care Teams Custom Seamstress Relationship Specialty Start Date End Date Lawrence Casanova MD [address] [place] [address] PCP - General Family Medicine 12/14/24
--- OUTSIDE RECORDS SUMMARY | 2025-08-05 22:16 | XMS_ITS | Encounter Summary ---
Author Organization [facility] Address [address] [place] [address] Care Team Providers Care Cnc Mill And Lathe Operator Name Role Phone Lawrence Casanova MD Primary Care Provider [phone] Lydia Wyman DO Unavailable [phone] Katelin Frazier RN Unavailable [phone] Erick House DO Unavailable [phone] Sharita Pearson RN Unavailable Encounter Details Date Type Department Care Team (Late st Contact Info) Description 10/17/2023 Scanned Document [facility] [address] [place] [phone] Brittnee Hartman MD [address] [place], [place] [id number] Social History Tobacco Use Types Packs/Day Years [...] documented as of this encounter Care Teams Cnc Mill And Lathe Operator Relationship Specialty Start Date End Date Lawrence Casanova MD [address] [place] [address] PCP - General Family Medicine 04/07/19 Lydia Wyman DO [address] [place] [address] Primary Fermenting Cellars Supervisor Cardiovascular Disease 10/18/21 Katelin Frazier RN [address] [place] [address] Oncology Nurse Navigator 07/29/24 Erick House DO [address] [place] [address] [address] Physician Hematology Oncology 07/29/25 Sharita Pearson RN [address] [address] Oncology Nurse Navigator 07/29/25 documented as of this encounter
--- OUTSIDE RECORDS SUMMARY | 2025-08-05 22:16 | XMS_ITS | Encounter Summary ---
Author Organization [facility] Address [address] [place] [address] Care Team Providers Care Document Management Technician Name Role Phone Lawrence Casanova MD Primary Care Provider [phone] Lydia Wyman DO Unavailable Katelin Frazier RN Unavailable Erick House DO Unavailable [phone] Sharita Pearson RN Unavailable Encounter Details Date Type Department Care Team (Late st Contact Info) Description 07/19/2025 Scanned Document [facility] [address] [phone] Kirt Dutton MD [address] [place] [id number] Social History Tobacco Use Types Packs/Day Years Used Date Smoking Tobacco: Never Smokeless Tobacco: Never Alcohol Use Standard Drinks/Week Comments No 0 (1 standard drink = 0.6 oz pur e alcohol) [facility] Utilities Answer Date Recorded In the past 12 months has [employer] electric, gas, oil, or water company threatened [...] any time in the past 12 m [facility], were you homeless or living in [...] on filedocumented in this encounter Care Teams Document Management Technician Relationship Specialty Start Date End Date Lawrence Casaonva MD [address] [place] [address] PCP - General Family Medicine 04/07/19 Lydia Wyman DO [address] [place] [address] Primary Locomotive Engineer Cardiovascular Disease 10/18/21 Katelin Frazier RN [address] [place] [address] Oncology Nurse Navigator 07/29/24 Erick House DO [address] [phone] Physician Hematology Oncology 07/29/25 Sharita Pearson RN [address] [phone] Oncology Nurse Navigator 07/29/25 documented as of this encounter
--- OUTSIDE RECORDS SUMMARY | 2025-08-05 22:16 | XMS_ITS | Encounter Summary ---
Author Organization [facility] Address [address] [place] [address] Care Team Providers Care Bit And Shank Department Supervisor Name Role Phone Lawrence Casanova MD Primary Care Provider [phone] Lydia Wyman DO Unavailable [phone] Katelin Frazier RN Unavailable [phone] Erick House DO Unavailable [phone] Sharita Pearson RN Unavailable [phone] Encounter Details Date Type Department Care Team (Late st Contact Info) Description 06/25/2024 Scanned Document [facility] Urologic Surgery [address] [place] [address] [place] [phone] Tessy Baltazar MA [address] [facility] [address] [place] [address] Social History Tobacco Use Types Packs/Day Years [...] documented as of this encounter Care Teams Bit And Shank Department Supervisor Relationship Specialty Start Date End Date Lawrence Casanova MD [address] [place] [address] PCP - General Family Medicine 04/07/19 Lydia Wyman DO [address] [place] [address] Primary Sample Maker Original Cardiovascular Disease 10/18/21 Katelin Frazier RN [address] [place] [address] Oncology Nurse Navigator 07/29/24 Erick House DO [address] [phone] Physician Hematology Oncology 07/29/25 Sharita Pearson RN [address] [phone] Oncology Nurse Navigator 07/29/25 documented as of this encounter
--- OUTSIDE RECORDS SUMMARY | 2025-08-05 22:16 | XMS_ITS | Encounter Summary ---
Author Organization [facility] Address [address] [place] [address] Care Team Providers Care Pulpwood Cutter Name Role Phone Lawrence Casanova MD Primary Care Provider [phone] Lydia Wyman DO Unavailable Katelin Frazier RN Unavailable [phone] Erick House DO Unavailable Sharita Pearson RN Unavailable Encounter Details Date Type Department Care Team (Late st Contact Info) Description 06/27/2025 Scanned Document [facility] [address] [phone] Kirt Dutton MD [address] [place] [address] [address] [place] [address] Social History Tobacco Use Types Packs/Day Years Used Date Smoking Tobacco: Never Smokeless Tobacco: Never Alcohol Use Standard Drinks/Week Comments No 0 (1 standard drink = 0.6 oz pur e alcohol) [facility] Utilities Answer Date Recorded In the past 12 months has [employer] electric, gas, oil, or water company threatened [...] in the past 12 m [facility], were you homeless or living in a long-term (including now)? No 08/20/2024 Sex and Gender [...] on filedocumented in this encounter Care Teams Pulpwood Cutter Relationship Specialty Start Date End Date Lawrence Casanova MD [address] [place] [address] PCP - General Family Medicine 04/07/19 Lydia Wyman DO [address] [place] [address] Primary Service Team Leader Cardiovascular Disease 10/18/21 Katelin Frazier RN [address] [place] [address] Oncology Nurse Navigator 07/29/24 Erick House DO [address] [address] Physician Hematology Oncology 07/29/25 Sharita Pearson RN [address] [phone] Oncology Nurse Navigator 07/29/25 documented as of this encounter
--- OUTSIDE RECORDS SUMMARY | 2025-08-05 22:16 | XMS_ITS | Clinical Summary ---
Author Organization [facility] Address [address] [place] [address] Care Team Providers Care Traction Power Engineer Name Role Phone Yg Randolph MD Primary Care Provider [phone] Lydia Wyman DO Unavailable [phone] Katelin Frazier RN Unavailable Erick House DO Unavailable Sharita Pearson RN Unavailable Allergies Active Allergy Reactions Criticality Noted Date Comments Sulfamethoxazole-Trimethop rim GI Intolerance/Nausea/Vomiting Low 10/05/2024 Oxycodone-Acetaminophen GI Intolerance/Nausea/Vomiting Low 05/12/2016 itchy Medications lisinopril-hydroc hlorothiazide (PRINZIDE,ZESTORE TIC) 20-12.5 MG per tablet Take 2 tablets by mouth every morning. 3 12/20/19 19 Active mometasone (NASONEX) 50 MCG/ACT nasal spray 1 spray into each nostril as needed. Active valACYclovir (VALTREX) 500 MG tablet Take 1 tablet (500 mg total) by mouth every morning. 0 12/13/19 19 Active sertraline (ZOLOFT) 25 MG tablet Take 2 tablets (50 mg total) by mouth every morning. 1 03/23/20 19 Active PROAIR RESPICLICK 108 (90 Base) MCG/ACT inhaler TAKE 2 PUFFS EVERY 4 TO 6 HOURS NEEDED 0 05/06/20 19 Active acetaminophen (TYLENOL) 500 MG tablet Take 2 tablets (1,000 mg total) by mouth 4 times daily (every 6 hours) as needed for mild pain. Active Advair Diskus 500-50 MCG/ACT diskus inhaler Inhale 1 puff 2 (two) times a day as needed. 09/03/20 22 Active desloratadine (CLARINEX) 5 MG tablet Take 1 tablet (5 mg total) by mouth as needed. CLARITIN 11/10/19 24 Active tamsulosin (FLOMAX) 0.4 MG capsuleIndication s:Nephrolithiasis Take 1 capsule (0.4 mg total) by mouth daily. 10 capsule 08/02/20 24 Active OneTouch Ultra test stripIndications: Pancreatic mass Test blood glucose 3 times Daily or as instructed. 200 test strip 08/23/20 24 Active OneTouch Delica Lancets 30G Misc lancetIndications :Pancreatic mass Test blood glucose 3 times Daily or as instructed. 200 lancet(s) 08/23/20 24 Active mometasone (ELOCON) 0.1 % ointmentIndicatio ns:Chronic otitis externa of both ears, unspecified type Apply topically daily. 45 g 1 10/12/19 25 Active Continuous Glucose Sensor (Dexcom G7 Sensor) MiscIndications:T ype 1 diabetes mellitus with hyperglycemia (HCC) Change sensor every 10 days 9 each 5 11/10/19 25 Active BD Pen Needle Jackie U/F 32G X 4 MM MiscIndications:T ype 1 diabetes mellitus with hyperglycemia (HCC) Use as directed to inject insulin 4x daily 400 pen needle 11 11/10/19 25 Active ipratropium (ATROVENT) 0.06 % nasal sprayIndications: Chronic pharyngitis SPRAY 2 SPRAYS INTO INTO EACH NOSTRIL 3 TIMES A DAY NEEDED FOR RHINITIS 15 mL 5 11/11/19 25 Active fluticasone-salme terol (ADVAIR) 500-50 mcg/inh diskus inhalerIndication s:Acute cough Inhale 1 puff 2 (two) times a day. 60 each 01/20/20 25 Active albuterol (PROVENTIL HFA; VENTOLIN HFA) 108 (90 Base) MCG/ACT inhalerIndication s:Acute cough Inhale 2 puffs 4 times daily (every 6 hours) as needed for wheezing. 1 each 01/20/20 25 Active insulin degludec (TRESIBA FLEXTOUCH) 100 UNIT/ML prefilled pen injectionIndicati ons:Type 1 diabetes mellitus with hyperglycemia (HCC) Inject 28 Units under the skin daily. 30 mL 02/18/20 25 Active metoPROLOL SUCCINATE (TOPROL-XL) 200 MG 24 hr tabletIndications :Essential hypertension TAKE 1 TABLET BY MOUTH EVERY DAY 90 tablet 3 04/05/20 25 Active amLODIPine (NORVASC) 10 MG tabletIndications :Essential hypertension Take 1 tablet (10 mg total) by mouth daily. 90 tablet 3 04/06/20 25 Active atorvastatin (LIPITOR) 20 MG tabletIndications :Mixed hyperlipidemia Take 1 tablet (20 mg total) by mouth daily. 90 tablet 3 04/06/20 25 Active Alcohol Swabs 70 % PadsIndications:P ancreatic mass Use as directed. 200 Pad(s) 11 04/22/20 25 Active gabapentin (NEURONTIN) 100 MG capsule Take 1 capsule (100 mg total) by mouth 3 (three) times a day. Active meloxicam (MOBIC) 15 MG tabletIndications :Acute midline low back pain without sciatica TAKE 1 TABLET (15 MG TOTAL) BY MOUTH DAILY. 30 tablet 05/19/20 25 Active insulin aspart, w/Niacinamide, (FIASP FLEXTOUCH) 100 UNIT/ML prefilled pen injectionIndicati ons:Type 1 diabetes mellitus with hyperglycemia (HCC) Inject 38-44 Units under the skin 3 (three) times a day before meals. 45 mL 3 06/20/20 25 Active famotidine (PEPCID) 40 MG tablet Take 1 tablet (40 mg total) by mouth nightly. 09/03/20 24 Active Medical Compression StockingsIndicati ons:Bilateral lower extremity edema Level of Compression: 15-20 mmHg 3 each 06/27/20 25 Active methocarbamol (ROBAXIN) 750 MG tabletIndications :Acute midline low back pain without sciatica Take 1 tablet (750 mg total) by mouth 4 (four) times a day. 60 tablet 06/28/20 25 Active PANTOprazole (PROTONIX) 40 MG EC tabletIndications :Pancreatic mass TAKE 1 TABLET BY MOUTH EVERY DAY 90 tablet 1 07/11/20 Active PANTOprazole (PROTONIX) 40 MG EC tabletIndications :Pancreatic mass TAKE 1 TABLET BY MOUTH EVERY DAY 90 tablet 1 11/02/19 025 Discontinued Active Problems Problem Noted Date Diagnosed Date Type 1 diabetes mellitus with hyperglycemia 12/2024 Hypertension 11/09/2024 Pancreatic tumor 08/19/2024 Morbid obesity with BMI of 40.0-44.9, adult 07/10 Assessment & Plan (08/03/2024 11:36 AM EST): BMI: . Diet, exercise and lifestyle modifications. Nephrolithiasis 07/12/2024 Pancreatic mass 05/19/2024 Epigastric pain 05/04/2024 Bloating 05/04/2024 Colon cancer screening 05/04/2024 Chronic intractable headache 02/11/2022 S/P cardiac catheterization 11/15/2021 Chest pain 10/18/2021 Intractable chronic post-traumatic headache 10/09 Family history of heart disease 10/18/2021 Uncontrolled hypertension 10/18/2021 Hydronephrosis of left kidney 11/02/2020 Impaired glucose tolerance 08/25/2019 Essential hypertension 02/23/2019 Asthma 02/23/2019 Assessment & Plan (08/03/2024 11:33 AM EST): Medication compliant with inhaler therapy. No recent flares or hospitalizations. Continue current medication regimen as prescribed. Continue plan as previously directed by your provider. Allergic rhinitis 02/23/2019 Obstructive sleep apnea on CPAP 02/23/2019 Assessment & Plan (08/03/2024 11:35 AM EST): Wears CPAP as prescribed. Discussed regular use of CPAP at least 4-6 weeks prior to surgery has been shown to significantly reduce perioperative complications which include, but are not limited to upper airway collapse, hypoxemia, hypoventilation, respiratory failure, cardiac arrhythmia /. Follow up with provider as recommended Snoring 02/23/2019 Fatigue 02/23/2019 Anxiety disorder 01/25/2019 Assessment & Plan (08/03/2024 11:36 AM EST): Managed by therapy with and medications prescribed by . Patient reports anxiety and mood are stable and denies suicidal or homicidal ideation. Continue current medication regimen as prescribed. Patient to follow up with provider as previously directed. Gastroesophageal reflux disease 01/25/2019 Assessment & Plan (08/03/2024 11:33 AM EST): Well-controlled and managed with medication. Continue current medication regimen as prescribed. Continue plan as previously directed by your provider. Hypogonadism 01/25/2019 Asthma 01/25/2019 Benign essential hypertension 01/25/2019 Assessment & Plan (08/03/2024 11:35 AM EST): BP: . Well-controlled by lifestyle and medication. Continue current medication regimen as prescribed. Continue plan as previously directed by your provider. Obesity 01/25/2019 Benign prostatic hyperplasia 02/19/2018 Assessment & Plan (08/03/2024 11:35 AM EST): Patient reports a weak stream, urinary retention, urgency, frequency, and nocturia - getting up times a night. Manages with . Patient is followed by with urology. Chronic obstructive lung disease 02/19/2018 Obesity (BMI 30-39.9) 03/07/2016 Resolved Problems Problem Noted Date Diagnosed Date Resolved Date Uncontrolled type 2 diabetes mellitus with hyperglycemia 10/24/2022 11/09/2024 UTI (urinary tract infection) 11/02/2020 11/20/2023 Type 2 diabetes mellitus wit hout complication, without long-term current use of insulin 02/23/2019 11/09/2024 Assessment & Plan (08/03/2024 11:33 AM EST): Encounters Date Type Department Care Team Description 07/29/2025 Documentation - Oncology Nurse Navigator ONCOLOGY [address] [place] [address] Sharita Pearson, RN 07/29/2025 [facility] [address] [place] [address] Daniel Muller MD 07/26/2025 11:30 AM EST - 07/26/2025 11:59 PM EST Hospital Encounter [facility] [address] [place] [phone] Erick House DO Primary pancreatic neuroendocrine tumor (HCC) Discharge Disposition: Home or Self Care 07/25/2025 [facility]anned [facility] [address] [place] [phone] Chrissy Davidson 07/19/2025 [facility] [address] [place] [phone] Kirt Dutton MD 07/12/2025 [facility]anned [facility] [address] [place] [phone] Giselle Matthews MA 06/27/2025 1:30 PM EDT Office Visit [facility] [place] - Cardiology [address] [place] [phone] Lydia Wyman DO Essential hypertension (Primary Dx); Heart palpitations; Family history of heart disease; Bilateral lower extremity edema 06/27/2025 9:45 AM EDT [facility] [address] [phone] Kirt Dutton MD Tear of right rotator cuff, unspecified tear extent, unspecified whether traumatic (Primary Dx); Arthritis of right acromioclavicular joint; Biceps tendinitis of left upper extremity 06/27/2025 [facility]anned [facility] [address] [place] [phone] Chrissy Davidson 06/27/2025 [facility] [address] [phone] Kirt Dutton MD 06/23/2025 7:36 PM EDT - 06/23/2025 11:59 PM EDT Hospital Encounter [facility] [address] [place] [phone] Kirt Dutton MD Left shoulder pain, unspecified chronicity Discharge Disposition: Home or Self Care 06/23/2025 7:30 PM EDT - 06/23/2025 7:35 PM EDT Hospital Encounter [facility] [address] [facility] [place] [phone] Kirt Dutton MD Right shoulder pain, unspecified chronicity Discharge Disposition: Home or Self Care 06/21/2025 2:30 PM EDT [facility] [address] [place] [address] Fred White MD Radiculopathy, lumbar region (Primary Dx); Cervical disc disorder at C5-C6 level with radiculopathy 06/21/2025 Scanned [facility] [address] [phone] Kirt Dutton MD 06/20/2025 11:30 AM EDT Clinical Support [facility] [address] [place] [phone] Tuan Brambila MD Type 1 diabetes mellitus with hyperglycemia (HCC) (Primary Dx) 06/15/2025 12:10 PM EDT - 06/15/2025 11:59 PM EDT Hospital Encounter [facility] [address] [place] [phone] Lydia Wyman, DO Discharge Disposition: Home or Self Care 06/10/2025 [facility] [address] [place] [phone] Daniel Muller MD 06/01/2025 10:00 AM EDT Office Visit [facility] [address] [phone] Fred White MD Memmo, Pietro A, MD Radiculopathy, cervical (Primary Dx); Spondylosis of cervical region without myelopathy or radiculopathy 05/31/2025 8:11 PM EDT - 05/31/2025 11:59 PM EDT Hospital Encounter [facility] [address] [place] [phone] Fred White MD Radiculopathy, lumbar region Discharge Disposition: Home or Self Care 05/30/2025 [facility] [address] [phone] Kirt Dutton MD 05/25/2025 Scanned [facility] [address] [place] [address] Kirt Dutton MD 2025 1:15 PM EDT Office [facility] [address] [place] [address] Kirt Dutton MD Left shoulder pain, unspecified chronicity (Primary Dx); Right shoulder pain, unspecified chronicity 05/23/2025 Scanned [facility] [address] [phone] Kirt Dutton MD 05/11/2025 Scanned [facility] [address] [place] [address] Chrissy Davidson from Last 3 Months Immunizations Immunization Administration Dates Next Due Hib (PRP-T) 08/03/2024 Influenza (AFLURIA/FLUZONE) Inactivated/Split Quadrivalent with Preservative IM 07/10/2022 Influenza Inactivated/Split Preservative Free IM 09/15/2018 Influenza, Quadrivalent (FLU ARIX, AFLURIA, FLULAVAL, FLUZONE) Preservative Free IM 06/22/2024,07/08/2023,08/21/2021 Influenza, Quadrivalent (FLU CELVAX) MDCK, Preservative Free IM 09/15/2018 Influenza, Unspecified 07/14/2020,12/31/2019, Meningococcal MCV4O (Menveo) 09/09/2024,08/03/20 24 Meningococcal Serogroup B 2-Dose 09/09/2024,07/10 Pneumococcal Conjugate 20-Valent 01/17/2023 Tdap 01/17/2023 Zoster Vaccine Recombinant (Shingrix) 03/21/2023 ,01/17/2023 Family History Medical History Relation Name Comments Coronary artery disease Father Diabetes Father Asthma Mother Diabetes Mother Hypertension Mother Coronary artery disease Sister Heart attack Sister Relation Name Status Comments Father Mother Alive Sister Alive Social History Tobacco Use Types Packs/Day Years Used Date Smoking Tobacco: Never Smokeless Tobacco: Never Alcohol Use Standard Drinks/Week Comments No 0 (1 standard drink = 0.6 oz pur e alcohol) [facility] Util[facility] Answer Date Recorded In the past 12 months has th e [employer], gas, oil, or water [employer] threatened to shut off services in your [...] any time in the past 12 [facility], were you homeless or living in a senior care (including now)? No 08/20/2024 Sex and Gender Information Value Date Recorded Sex Assigned at Male 10/24/2022 6:05 PM EST Legal Sex Male 6:13 PM EDT Gender Identity Male 10/24/2022 6:05 PM EST Sexual Orientation Heterosexual (straight) 10/24 6:05 PM EST Last Filed Vital Signs Vital Sign Reading Time Taken Comments Blood Pressure 124/80 06/27/2025 2:37 PM EDT Pulse 71 06/27/2025 1:57 PM EDT Temperature 36.3 C (97.4 F) 06/20/2025 11:36 AM EDT Respiratory Rate 18 05/03/2025 10:51 AM EDT Oxygen Saturation 96% 06/27/2025 1:57 PM EDT Inhaled Oxygen Concentration - - Weight 134 kg (295 lb) 06/27/2025 1:57 PM EDT Height 175.3 cm (5' 9 ) 06/27/2025 1:57 PM EDT Body Mass Index 43.56 06/27/2025 1:57 PM EDT Plan of Treatment Health Maintenance Due Date Last Done Comments Ophthalmology Exam 1973 RSV Vaccine 50 years and older and Patients (1 - Risk 50-74 years 1-dose series) 2013 Influenza Vaccine 04/08/2025 06/22/2024, , 07/10/2022, Additional history exists COVID-19 Vaccine ( season) 2025 09/18/2023, 08/24/2021, 11/01/2020, Additional history exists Hemoglobin A1C 08/22/2025 05/23/2025, 02/06, 11/09/2024, Additional history exists Lipid Panel 11/11/2025 11/11/2024, 05/10, 01/29/2024, Additional history exists Microalbumin/Creatinine Ratio Urine 11/11/2025 11/11/2024, 10/07/2024, 06/03/2024 Foot Exam 06/20/2026 06/20/2025, 06/08, 06/20/2025, Additional history exists Creatinine with GFR 07/25/2026 07/25/2025, 06/13/2025, 05/23/2025, Additional history exists DTaP/Tdap/Td Vaccines (2 - Td or Tdap) 01/17/2033 01/17/2023 Colonoscopy 06/04/2034 06/04/2024 HIV Screening Completed 06/07/2019, 12/10/2012 Hepatitis C Virus Screening Completed 06/07/2019 Pneumococcal Vaccines 50+ Completed 01/17/2023 Zoster (Shingles) Vaccine Completed 03/21/2023, 08/2023 Hepatitis B Vaccines Aged Out No long er eligible based on patient's age to complete this topic Medical Devices Explanted Type Area Lamp Cleaner Device Identifier Shelf Expiration Date Model / Serial / Lot [id number] Stent Ureteral 6fr 28cm Pigtail Curve Taper Tip Bldr Elijah [employer]p - [id number] Implanted:Qty : 1 on 07/12/2024 by Cesar Tai MD at [facility] Explanted:Qty : 1 on 08/02/2024 by Cesar Tai MD at [facility] Stent Left: Ureter [employer] [id number] 04/12/2027 [id number] 40 / / [id number] Stent Ureteral 6fr 26cm Taper Tip Bldr Elijah [employer]p Contour Hdr+ - [id number] Implanted:Qty : 1 on 08/02/2024 by Cesar Tai MD at [facility] Explanted:Qty : 1 on 08/13/2024 by Cesar Tai MD Stent Left: Ureter [employer] [id number] 04/16/2027 [id number] 30 / / [id number] Procedures Procedure Name Priority Date/Time Associated Diagnosis Comments CT CHEST/ABDOMEN+PELVIS W/CONTRAST W/PO Routine 07/26/2025 11:41 AM EST Primary pancreatic neuroendocrine tumor (HCC) POCT COMPREHENSIVE METABOLIC PANEL (ONCOLOGY - INTERFACED NO CHARGE) Routine 07/25/2025 9:33 AM EST Primary pancreatic neuroendocrine tumor (HCC) ECG 12-LEAD Routine 06/27/2025 2:13 PM EDT Essential hypertension Heart palpitations Family history of heart disease MRI SHOULDER W/O CONTRAST-LEFT Routine 06/23/2025 8:42 PM EDT Left shoulder pain, unspecified chronicity MRI SHOULDER W/O CONTRAST-RIGHT Routine 06/23/2025 8:42 PM EDT Right shoulder pain, unspecified chronicity POCT GLUCOSE, FINGERSTICK (CHARGE) Routine 06/20/2025 11:39 AM EDT Type 1 diabetes mellitus with hyperglycemia (HCC) MRI CARDIAC MORPH+FUNCTION W W/O CONTRAST Routine 06/15/2025 1:42 PM EDT Hypertension, unspecified type Family history of heart disease BASIC METABOLIC PANEL Routine 06/13/2025 9:27 AM EDT Hypertension, unspecified type Family history of heart disease Pre-op exam COMPLETE BLOOD COUNT, WITHOUT DIFFERENTIAL Routine 06/13/2025 9:27 AM EDT Hypertension, unspecified type Family history of heart disease Pre-op exam MRI LUMBAR SPINE W/O CONTRAST Routine 05/31/2025 8:50 PM EDT Radiculopathy, lumbar region HEMOGLOBIN A1C Routine 05/23/2025 2:18 PM EDT Radiculopathy, lumbar region COMPLETE BLOOD COUNT, WITHOUT DIFFERENTIAL Routine 05/23/2025 2:15 PM EDT Hypertension, unspecified type Family history of heart disease BASIC METABOLIC PANEL Routine 05/23/2025 2:15 PM EDT Hypertension, unspecified type Family history of heart disease MICROALBUMIN, CREATININE, URINE, RANDOM Routine 11/11/2024 9:37 AM EST Type 1 diabetes mellitus with hyperglycemia (HCC) LIPID PANEL REFLEX DIRECT LDL Routine 11/11/2024 9:37 AM EST Type 1 diabetes mellitus with hyperglycemia (HCC) HIV 1/2 AG/AB CMIA REFLEX TO CONFIRMATION Routine 06/07/2019 10:50 AM EDT HEPATITIS C ANTIBODY WITH REFLEX TO HCV RNA, PCR W/REFLEX TO GENOTYPE, LIPA Routine 06/07/2019 10:50 AM EDT from Last 3 Months or Most Recently Relevant to Health Maintenance Results * CT Chest/abdomen+pelvis w/contrast w/po (07/26/2025 11:41 AM EST) Anatomical Region Laterality Modality Chest, Abdomen, Pelvis Computed Tomography 07/26/2025 5:27 PM EST Impressions 07/27/2025 12:40 PM EST Decreasing soft tissue prominence along the pancreatic resection margin, presumably postoperative. Otherwise stable exam without convincing evidence of residual or recurrent malignancy. Narrative 07/27/2025 12:[address] CHEST/ABDOMEN+PELVIS W/CONTRAST W/PO: 07/26/2025 11:38 AM CLINICAL HISTORY:restaging pancreatic neuroendocrine tumor. Primary pancreatic neuroendocrine tumor (HCC) COMPARISON: 02/14/2025 CT TECHNIQUE: Multiple images were obtained after the administration of 100 cc Omnipaque 350 intravenously. NOTE: Iterative reconstruction technique was employed to reduce patient radiation exposure. FINDINGS: CHEST: No effusion, pneumothorax, lymphadenopathy. No pulmonary infiltrate, mass, or suspicious nodule. ABDOMEN: Liver is prominent and diffusely fatty. Spleen is absent and pancreatic tail and a portion of the pancreatic body are surgically absent. The pancreatic resection margin soft tissue is decreasing, currently measuring up to 3.0 and previously 3.9 cm. The remainder of the pancreas is unremarkable. Adrenals are unremarkable. Benign renal cysts. A couple nonobstructing left renal stones measuring up to approximately 10 mm and nonobstructive right renal stone measuring approximately 4 to 5 mm. Nonobstructive bowel pattern. PELVIS: Bladder is grossly unremarkable. Mild benign prostatic hypertrophy. BONES: Few small sclerotic foci, likely bone islands. Procedure Note Cesar Tamayo MD - 07/27/2025 CT CHEST/ABDOMEN+PELVIS W/CONTRAST W/PO: 07/26/2025 11:38 AM CLINICAL HISTORY:restaging pancreatic neuroendocrine tumor. Primarypancreatic neuroendocrine tumor (HCC) COMPARISON: 02/14/2025 CT TECHNIQUE: Multiple images were obtained after the administration of 100cc Omnipaque 350 intravenously. NOTE: Iterative reconstruction technique was employed to reduce patientradiation exposure. FINDINGS: CHEST: No effusion, pneumothorax, lymphadenopathy. No pulmonary infiltrate, mass,or suspicious nodule. ABDOMEN: Liver is prominent and diffusely fatty. Spleen is absent and pancreatic tail and a portion of the pancreatic bodyare surgically absent. The pancreatic resection margin soft tissue isdecreasing, currently measuring up to 3.0 and previously 3.9 cm. Theremainder of the pancreas is unremarkable. Adrenals are unremarkable. Benign renal cysts. A couple nonobstructing left renal stones measuring upto approximately 10 mm and nonobstructive right renal stone measuringapproximately 4 to 5 mm. Nonobstructive bowel pattern. PELVIS: Bladder is grossly unremarkable. Mild benign prostatic hypertrophy. BONES: Few small sclerotic foci, likely bone islands. IMPRESSION: Decreasing soft tissue prominence along the pancreatic resection margin,presumably postoperative. Otherwise stable exam without convincing evidence of residual or recurrentmalignancy. us Erick House DO IMG CT ORDERABLES Final Re sult * (ABNORMAL) POCT Comprehensive Metabolic Panel (Oncology) (07/25/2025 9:33 AM EST) Sodium 136 132 - 142 mmol/L 07/25/2025 10:20 AM EST [facility] [place] Potassium 4.4 3.5 - 5.1 mmol/L 07/25/2025 10:20 AM EST [facility] [place] Chloride 103 98 - 107 mmol/L 07/25/2025 10:20 AM EST [facility] [place] Carbon Dioxide 28 23 - 29 mmol/L 07/25/2025 10:20 AM EST [facility] [place] Glucose 206(H) 70 - 105 mg/dL 07/25/2025 10:20 AM EST [facility] [place] BUN 24(H) 6 - 20 mg/dL 07/25/2025 10:20 AM EST [facility] [place] Creatinine 1.17 0.90 - 1.30 mg/dL 07/25/2025 10:20 AM EST [facility] [place] Calcium 9.3 8.5 - 10.2 mg/dL 07/25/2025 10:20 AM EST [facility] [place] Total Protein 6.5 6.4 - 8.3 g/dL 07/25/2025 10:20 AM EST [facility] [place] Albumin 4.0 3.5 - 5.2 g/dL 07/25/2025 10:20 AM EST [facility] [place] AST (SGOT) 4(L) 7 - 31 U/L 07/25/2025 10:20 AM EST [facility] [place] ALT (SGPT) 11 5 - 30 U/L 07/25/2025 10:20 AM EST [facility] [place] Alkaline Phosphatase 117 44 - 147 U/L 07/25/2025 10:20 AM EST [facility] [place] Total Bilirubin 0.5 0.3 - 1.2 mg/dL 07/25/2025 10:20 AM EST [facility] [place] EGFR, I-STAT 70 >59 07/25/2025 10:20 AM EST [facility] [place] Comment:CKD-EPI (2020) in mL /min/1.73 sq meters. Globulin 2.5 2.0 - 4.8 g/dL 07/25/2025 10:20 AM EST [facility] [place] A/G Ratio 1.6 0.6 - 2.2 Ratio 07/25/2025 10:20 AM EST [facility] [place] Blood Blood specimen / Unknown 07/25/2025 9:33 AM EST 07/25/2025 10:20 AM EST us Erick House DO POCT ORDERABLES - ONCOLOGY Final Result [facility] [place] [address] [place] [address], [place] [facility] [place] [address] [place], [place] * ECG 12 lead (06/27/2025 2:13 PM EDT) Pathologist [facility] Ventricular rate 71 BPM EKG [facility] Atrial rate 71 BPM EKG [facility] P-R interval 174 ms EKG [facility] QRS duration 88 ms EKG [facility] Q-T interval 390 ms EKG [facility] QTC calculation (Bazett) 423 ms EKG [facility] P axis 33 degrees EKG [facility] R axis 30 degrees EKG [facility] T axis 48 degrees EKG [facility] 06/27/2025 2:13 PM EDT Narrative EKG [facility] - 06/27/2025 2:28 PM EDT Normal sinus rhythm Normal ECG When compared with ECG of 20-Aug-2024 01:10, No significant change was found Confirmed by DO Wyman Kelly () on 06/27/2025 2:28:39 PM Procedure Note Lydia Wyman DO - 06/27/2025 Normal sinus rhythm Normal ECG When compared with ECG of 20-Aug-2024 01:10, No significant change was found Confirmed by DO Wyman Kelly () on 06/27/2025 2:28:39 PM Lydia Wyman DO ECG ORDERABLES Final Result EKG [facility] * MRI Shoulder w/o contrast-Left (06/23/2025 8:42 PM EDT) Anatomical Region Laterality Modality Shoulder Left Magnetic Resonan ce 06/24/2025 8:10 AM EDT Impressions 06/24/2025 8:23 AM EDT Mild limitations of the exam secondary to patient motion artifact. 1. The supraspinatus tendon demonstrates near full-thickness articular sided tearing of its anterior insertional fibers 2. The subscapularis tendon demonstrates low-grade interstitial tearing of its insertional fibers. 3. The infraspinatus and teres minor tendons demonstrate insertional tendinopathy without discrete tears. 4. The intra-articular long head of biceps tendon demonstrates moderate grade interstitial tearing with superimposed tendinopathy of its insertional fibers. 5. Chronic degenerative tearing of the labrum from 3:00 to 6:00. 6. Severe acromioclavicular arthrosis. Narrative 06/24/2025 8:23 AM EDT EXAM: MRI SHOULDER W/O CONTRAST-LEFT on 06/23/2025 7:36 PM CLINICAL HISTORY: EVAL LEFT SHOULDER TO R/O RTC TEAR. COMPARISONS: Shoulder radiographs 03/07/2021 TECHNIQUE: MRI of the left shoulder was performed using a 1.5 Nikki magnet, without the administration of intravenous gadolinium. Exam was performed as per departmental protocol with specific sequences including: Localizers, axial PD FS, sagittal T1, sagittal T2 FS, coronal PD FS. FINDINGS: The quality of the exam is degraded secondary to motion artifact. AC joint: The acromioclavicular joint demonstrates severe arthrosis. The acromion is type II. No inferior acromial spur. Rotator cuff: The supraspinatus tendon demonstrates focal near full-thickness articular sided tearing of its anterior insertional fibers. The infraspinatus tendon demonstrates insertional tendinopathy without discrete tear. The teres minor demonstrate insertional tendinopathy without discrete tear. The subscapularis tendon demonstrates low-grade interstitial tearing of its insertional fibers with superimposed tendinopathy. Rotator cuff muscle bulk appears intact. Labrum: Evaluation of the labrum is severely limited due to motion artifacts, and possibly of intra-articular joint fluid. There is chronic blunting and fraying of the anterior labrum from 3:00 to 6:00. Biceps: The intra-articular long head biceps tendon demonstrates moderate grade interstitial tearing of its insertional fibers composed tendinopathy. Bone: The bone marrow demonstrates normal signal. Cartilage: The glenohumeral articular cartilage is preserved. Miscellaneous: None. Procedure Note Luís Gee MD - 06/24/2025 EXAM: MRI SHOULDER W/O CONTRAST-LEFT on 06/23/2025 7:36 PM CLINICAL HISTORY: EVAL LEFT SHOULDER TO R/O RTC TEAR. COMPARISONS: Shoulder radiographs 03/07/2021 TECHNIQUE: MRI of the left shoulder was performed using a 1.5 Teslamagnet, without the administration of intravenous gadolinium. Exam wasperformed as per departmental protocol with specific sequences including:Localizers, axial PD FS, sagittal T1, sagittal T2 FS, coronal PD FS. FINDINGS: The quality of the exam is degraded secondary to motion artifact. AC joint: The acromioclavicular joint demonstrates severe arthrosis. Theacromion is type II. No inferior acromial spur. Rotator cuff: The supraspinatus tendon demonstrates focal nearfull-thickness articular sided tearing of its anterior insertional fibers.The infraspinatus tendon demonstrates insertional tendinopathy withoutdiscrete tear. The teres minor demonstrate insertional tendinopathy without discrete tear. The subscapularis tendondemonstrates low-grade interstitial tearing of its insertional fibers withsuperimposed tendinopathy. Rotator cuff muscle bulk appears intact. Labrum: Evaluation of the labrum is severely limited due to motionartifacts, and possibly of intra-articular joint fluid. There is chronicblunting and fraying of the anterior labrum from 3:00 to 6:00. Biceps: The intra-articular long head biceps tendon demonstrates moderategrade interstitial tearing of its insertional fibers composedtendinopathy. Bone: The bone marrow demonstrates normal signal. Cartilage: The glenohumeral articular cartilage is preserved. Miscellaneous: None. IMPRESSION: Mild limitations of the exam secondary to patient motion artifact. 1. The supraspinatus tendon demonstrates near full-thickness articularsided tearing of its anterior insertional fibers 2. The subscapularis tendon demonstrates low-grade interstitial tearingof its insertional fibers. 3. The infraspinatus and teres minor tendons demonstrate insertionaltendinopathy without discrete tears. 4. The intra-articular long head of biceps tendon demonstrates moderategrade interstitial tearing with superimposed tendinopathy of itsinsertional fibers. 5. Chronic degenerative tearing of the labrum from 3:00 to 6:00. 6. Severe acromioclavicular arthrosis. us Kirt Dutton MD IM MRI ORDERABLES Rose l Result * MRI Shoulder w/o contrast-Right (06/23/2025 8:42 PM EDT) Anatomical Region Laterality Modality Shoulder Right Magnetic Resonan ce 06/24/2025 8:23 AM EDT Impressions 06/24/2025 9:00 AM EDT 1. The subscapularis tendon demonstrates focal full-thickness tearing of its superior insertional fibers with mild superior tendon fiber retraction, and atrophy of the muscle body. 2. The supraspinatus tendon demonstrates high-grade partial-thickness articular sided tear of its anterior insertional fibers. 3. The intra-articular long head biceps tendon demonstrate insertional tendinopathy. 4. The infraspinatus and teres minor demonstrate insertional tendinopathy without discrete tears. 5. Chronic degenerative fraying of the glenoid labrum from 4:00 to 7:00. 6. Acromioclavicular joint demonstrates severe arthrosis. Narrative 06/24/2025 9:00 AM EDT EXAM: MRI SHOULDER W/O CONTRAST-RIGHT on 06/23/2025 7:48 PM CLINICAL HISTORY: EVAL RIGHT SHOULDER TO R/O RTC TEAR. COMPARISONS: Right shoulder radiographs 04/12/2025 TECHNIQUE: MRI of the right shoulder was performed using a 1.5 Nikki magnet, without the administration of intravenous gadolinium. FINDINGS: AC joint: Severe arthrosis of the acromioclavicular joint. The acromion is type II. No inferior acromial spur. Rotator cuff: The supraspinatus tendon demonstrates high-grade partial thickness articular sided tearing of its anterior insertional fibers. The infraspinatus and teres minor demonstrate insertional tendinopathy without discrete tears. The subscapularis tendon demonstrates focal full-thickness tear of its superior fibers approximately 3 mm of tendinous retraction of superior fibers with superimposed tendinopathy. Mild atrophy of the subscapularis muscle body. Labrum: Chronic fraying and blunting of the glenoid labrum from 4:00 to 7:00. Biceps: The intra-articular long head of the biceps tendon demonstrate insertional tendinopathy without discrete tear. Bone: The bone marrow demonstrates normal signal. Cartilage: The glenohumeral articular cartilage is preserved. Miscellaneous: None. Procedure Note Luís Gee MD - 06/24/2025 EXAM: MRI SHOULDER W/O CONTRAST-RIGHT on 06/23/2025 7:48 PM CLINICAL HISTORY: EVAL RIGHT SHOULDER TO R/O RTC TEAR. COMPARISONS: Right shoulder radiographs 04/12/2025 TECHNIQUE: MRI of the right shoulder was performed using a 1.5 Teslamagnet, without the administration of intravenous gadolinium. FINDINGS: AC joint: Severe arthrosis of the acromioclavicular joint. The acromion istype II. No inferior acromial spur. Rotator cuff: The supraspinatus tendon demonstrates high-grade partialthickness articular sided tearing of its anterior insertional fibers. Theinfraspinatus and teres minor demonstrate insertional tendinopathy withoutdiscrete tears. The subscapularis tendon demonstrates focal full-thickness tear of its superior fibersapproximately 3 mm of tendinous retraction of superior fibers withsuperimposed tendinopathy. Mild atrophy of the subscapularis musclebody. Labrum: Chronic fraying and blunting of the glenoid labrum from 4:00 to7:00. Biceps: The intra-articular long head of the biceps tendon demonstrateinsertional tendinopathy without discrete tear. Bone: The bone marrow demonstrates normal signal. Cartilage: The glenohumeral articular cartilage is preserved. Miscellaneous: None. IMPRESSION: 1. The subscapularis tendon demonstrates focal full-thickness tearing ofits superior insertional fibers with mild superior tendon fiberretraction, and atrophy of the muscle body. 2. The supraspinatus tendon demonstrates high-grade partial-thicknessarticular sided tear of its anterior insertional fibers. 3. The intra-articular long head biceps tendon demonstrate insertionaltendinopathy. 4. The infraspinatus and teres minor demonstrate insertional tendinopathywithout discrete tears. 5. Chronic degenerative fraying of the glenoid labrum from 4:00 to7:00. 6. Acromioclavicular joint demonstrates severe arthrosis. Kirt Dutton MD IMG MRI ORDERABLES Rose sue Result * (ABNORMAL) POCT Glucose, Fingerstick (06/20/2025 11:39 AM EDT) POC Glucose 189(H) 65 - 99 mg/dL 06/20/2025 11:43 AM EDT Blood specimen / Unknown 06/20/2025 11:39 AM EDT 06/20/2025 11:43 AM EDT us Yg Randolph MD POINT OF CARE TEST ORDERAB LES Final Result [facility] LAB See Below * MRI Cardiac morph+function w w/o contrast (06/15/2025 1:42 PM EDT) Anatomical Region Laterality Modality Heart Magnetic Resonan ce 06/15/2025 2:52 PM EDT Impressions 06/15/2025 3:30 PM EDT Normal right and left ventricular size and systolic function (LVEF 58%, RVEF 55%). There is normal myocardial T1 and ECV measurements. There are no MR findings to suggest cardiac amyloid. Robret Vega DO, FACC Narrative 06/15/2025 3:30 PM EDT EXAM: MRI CARDIAC MORPH+FUNCTION W W/O CONTRAST on 04/26/2025 11:40 AM CLINICAL HISTORY: SARAH CRUZ is a 60 years old Male with a submitted history of Difficult to control hypertension, evaluate for amyloidosis. ADDITIONAL HISTORY: Hypertension, unspecified type, Family history of heart disease COMPARISONS: None TECHNIQUE: LogicNets1.5T MRI scanner. Morphologic and dynamic cine imaging were performed in multiple projections. 20 mL of Gadavist was administered for delayed enhancement imaging. Flow quantification sequences were obtained. Post-processing included volume calculations, which were performed by the interpreting physician on an independent workstation. Report was dictated with guidance and clinical review from Civil Lawyer, Robert Vega DO. PATIENT INFORMATION: Height: 175 cm, Weight: 135 kg FINDINGS: Aorta: The visualized thoracic aorta is unremarkable Pulmonary artery: The main pulmonary artery is normal in size. Left Ventricle: The left ventricular size is normal. The left ventricular systolic function is globally normal. No segmental wall motion abnormalities are seen. There is normal myocardial thickness throughout the left ventricle. T2-weighted imaging demonstrates no high signal intensity to suggest the presence of myocardial edema. Postcontrast images are somewhat limited by the patient's body habitus and somewhat low [id number] especially in the lateral wall. There is no evidence of an ischemic scar. Subtle areas of nonischemic delayed myocardial enhancement are not entirely excluded given the technical limitations. No thrombus is seen, though exam was not tailored for evaluation. Of note is some hypertrabeculation of the left ventricular apex without thinning of the myocardium, probably related to remodeling changes. Basal [place] myocardial T1: 974 +/- 6 ms (normal range: 920-1020 ms) Basal myocardial ECV: 25.4 ms (normal range: 23-35% Global myocardial T2: 46 ms (normal range: 44-56 ms) Absolute/Indexed to BSA (Mosteller BSA method). SAX3D Stack LV Function Ejection Fraction: 58 %, *Normal 57-77% / Mildly depressed 41-56 / Moderate 30-40 / Severe <30% Stroke Volume: 129 ml End-Diastolic Volume Index: 86.8 ml/m , *Normal 57-105 / Mildly increased 106-117 / Moderate 118-129 / Severe >129 ml/m2 End-Systolic Volume Index: 36.4 ml/m End-Diastolic Volume: 222 ml, *Normal 106-214 / Mildly increased 215-241 / Moderate 242-268 / Severe >268 mL End-Systolic Volume: 93.1 ml Heart Rate: 63 bpm Peak Filling Rate: 505 ml/s Peak Ejection Rate: 736 ml/s Cardiac Output: 8.1 l/min Cardiac Index: 3.2 l/min/m Stroke Volume Index: 50.4 ml/m Mass Phase: 159 g End-Diastolic Mass: 159 g End-Systolic Mass: 170 g Mass Index Phase: 62 g/m End-Diastolic Mass Index: 62 g/m , *Normal 49-85 / Mildly increased 86-94 / Moderate 95-103 / Severe >103 g/m2 End-Systolic Mass Index: 67 g/m SAX2D Parameters LV End Diastolic Diameter: 62 mm, Normal < 62 mm LV End Systolic Diameter: 42 mm, Anterior septal wall: 11 mm, Normal <12 mm Posterior wall: 10 mm, Normal <11 mm Right Ventricle: The right ventricular size is normal. The right systolic ventricular function is globally normal. No segmental wall motion abnormalities or aneurysms are seen. Post contrast images demonstrate no myocardial delayed enhancement. No thrombus is seen, though exam was not tailored for evaluation. Absolute/Indexed to BSA (Mosteller BSA method). SAX3D Stack RV Function Ejection Fraction: 55 %, *Normal 52-72% / Mildly depressed 41-52 / Moderate 30-40 / Severe <30% Stroke Volume: 124 ml End-Diastolic Volume Index: 87.5 ml/m , *Normal 61-121 / Mildly increased 122-136 / Moderate 137-151 / Severe >151 mL/m2 End-Systolic Volume Index: 39.1 ml/m End-Diastolic Volume: 224 ml, *Normal 118 250 / Mild 251 283 / Moderate 284 316 / Severe >316 mL End-Systolic Volume: 100 ml Heart Rate: 63 bpm Peak Filling Rate: 646 ml/s Peak Ejection Rate: 666 ml/s Cardiac Output: 7.8 l/min Cardiac Index: 3.1 l/min/m Stroke Volume Index: 48.4 ml/m Left atrium: The left atrium is normal in size. Right atrium: The right atrium is normal in size. Aortic valve: No significant aortic insufficiency. Pulmonic valve: No significant pulmonic regurgitation. Phase-contrast aorta: Forward flow of 135 mL Phase-contrast pulmonic artery: Forward flow of 132 mL Qp/Qs: 0.97 Mitral valve: No significant mitral stenosis or regurgitation. Tricuspid valve: No significant tricuspid stenosis or regurgitation. Pericardium: No pericardial thickening, abnormal enhancement or pericardial effusion is identified. Lungs and pleura: No pleural effusions. Visualized upper abdominal organs: Unremarkable. *Reference ranges: Galvan et al. Heart Journal, Cardiovascular imaging. 2019, 20:[id number]. Procedure Note Remy Prabhakar MD - 06/15/2025 EXAM: MRI CARDIAC MORPH+FUNCTION W W/O CONTRAST on 04/26/2025 11:40 AM CLINICAL HISTORY: SARAH CRUZ is a 60 years old Male with a submitted history ofDifficult to control hypertension, evaluate for amyloidosis. ADDITIONAL HISTORY: Hypertension, unspecified type, Family history of heart disease COMPARISONS: None TECHNIQUE: LogicNets1.5T MRI scanner. Morphologic and dynamic cine imaging wereperformed in multiple projections. 20 mL of Gadavist was administered fordelayed enhancement imaging. Flow quantification sequences were obtained.Post-processing included volume calculations, which were performed by the interpreting physician on anindependent workstation. Report was dictated with guidance and clinicalreview from Civil Lawyer, Robert Vega DO. PATIENT INFORMATION: Height: 175 cm, Weight: 135 kg FINDINGS: Aorta: The visualized thoracic aorta is unremarkable Pulmonary artery: The main pulmonary artery is normal in size. Left Ventricle: The left ventricular size is normal. The left ventricularsystolic function is globally normal. No segmental wall motionabnormalities are seen. There is normal myocardial thickness throughoutthe left ventricle. T2-weighted imaging demonstrates no high signal intensity to suggest the presence ofmyocardial edema. Postcontrast images are somewhat limited by thepatient's body habitus and somewhat low [id number] especially in thelateral wall. There is no evidence of an ischemic scar. Subtle areas of nonischemic delayed myocardial enhancement are notentirely excluded given the technical limitations. No thrombus is seen,though exam was not tailored for evaluation. Of note is some hypertrabeculation of the left ventricular apex withoutthinning of the myocardium, probably related to remodeling changes. Basal [place] myocardial T1: 974 +/- 6 ms (normal range: 920-1020 ms) Basal myocardial ECV: 25.4 ms (normal range: 23-35% Global myocardial T2: 46 ms (normal range: 44-56 ms) Absolute/Indexed to BSA (Mosteller BSA method). SAX3D Stack LV Function Ejection Fraction: 58 %, *Normal 57-77% / Mildly depressed 41-56 /Moderate 30-40 / Severe <30% Stroke Volume: 129 ml End-Diastolic Volume Index: 86.8 ml/m , *Normal 57-105 / Mildlyincreased 106-117 / Moderate 118-129 / Severe >129 ml/m2 End-Systolic Volume Index: 36.4 ml/m End-Diastolic Volume: 222 ml, *Normal 106-214 / Mildly [id number] / Moderate 242-268 / Severe >268 mL End-Systolic Volume: 93.1 ml Heart Rate: 63 bpm Peak Filling Rate: 505 ml/s Peak Ejection Rate: 736 ml/s Cardiac Output: 8.1 l/min Cardiac Index: 3.2 l/min/m Stroke Volume Index: 50.4 ml/m Mass Phase: 159 g End-Diastolic Mass: 159 g End-Systolic Mass: 170 g Mass Index Phase: 62 g/m End-Diastolic Mass Index: 62 g/m , *Normal 49-85 / Mildly -44 / Moderate 95-103 / Severe >103 g/m2 End-Systolic Mass Index: 67 g/m SAX2D Parameters LV End Diastolic Diameter: 62 mm, Normal < 62 mm LV End Systolic Diameter: 42 mm, Anterior septal wall: 11 mm, Normal <12 mm Posterior wall: 10 mm, Normal <11 mm Right Ventricle: The right ventricular size is normal. The right systolicventricular function is globally normal. No segmental wall motionabnormalities or aneurysms are seen. Post contrast images demonstrate nomyocardial delayed enhancement. No thrombus is seen, though exam was not tailored for evaluation. Absolute/Indexed to BSA (Mosteller BSA method). SAX3D Stack RV Function Ejection Fraction: 55 %, *Normal 52-72% / Mildly depressed 41-52 /Moderate 30-40 / Severe <30% Stroke Volume: 124 ml End-Diastolic Volume Index: 87.5 ml/m , *Normal 61-121 / Mildlyincreased 122-136 / Moderate 137-151 / Severe >151 mL/m2 End-Systolic Volume Index: 39.1 ml/m End-Diastolic Volume: 224 ml, *Normal 118 250 / Mild 251 283 /Moderate 284 316 / Severe >316 mL End-Systolic Volume: 100 ml Heart Rate: 63 bpm Peak Filling Rate: 646 ml/s Peak Ejection Rate: 666 ml/s Cardiac Output: 7.8 l/min Cardiac Index: 3.1 l/min/m Stroke Volume Index: 48.4 ml/m Left atrium: The left atrium is normal in size. Right atrium: The right atrium is normal in size. Aortic valve: No significant aortic insufficiency. Pulmonic valve: No significant pulmonic regurgitation. Phase-contrast aorta: Forward flow of 135 mL Phase-contrast pulmonic artery: Forward flow of 132 mL Qp/Qs: 0.97 Mitral valve: No significant mitral stenosis or regurgitation. Tricuspid valve: No significant tricuspid stenosis or regurgitation. Pericardium: No pericardial thickening, abnormal enhancement orpericardial effusion is identified. Lungs and pleura: No pleural effusions. Visualized upper abdominal organs: Unremarkable. *Reference ranges: Galvan et al. Heart Journal, Cardiovascularimaging. 2019, 20:[id number]. IMPRESSION: Normal right and left ventricular size and systolic function (LVEF 58%,RVEF 55%). There is normal myocardial T1 and ECV measurements. There areno MR findings to suggest cardiac amyloid. Robert Vega DO, FACC Lydia Wyman DO IMG MRI ORDERABLES Final Res ult * (ABNORMAL) Complete Blood Count, without Differential (06/13/2025 9:27 AM EDT) Only the most recent of2 resultswithin the time period is included. White Blood Cell Count 11.3(H) 3.8 - 10.8 Thousand/ uL [facility] Red Blood Cell Count 5.21 4.20 - 5.80 Million/u L [facility] Hemoglobin 14.1 13.2 - 17.1 g/dL [facility] Hematocrit 44.3 38.5 - 50.0 % [facility] [[facility] MCV 85.0 80.0 - 100.0 fL [facility] MCH 27.1 27.0 - 33.0 pg [facility] MCHC 31.8(L) 32.0 - 36.0 g/dL [facility] Comment: For adults, a slight decrease in the calculated MCHC value (in the range of 30 to 32 g/dL) is most likely not clinically significant; however, it should be interpreted with caution in correlation with other red cell parameters and the patient's clinical condition. RDW 16.1(H) 11.0 - 15.0 % [facility] Platelet Count 409(H) 140 - 400 Thousand/ uL [facility] MPV 11.1 7.5 - 12.5 fL [facility] Blood Blood specimen / Unknown 06/13/2025 9:27 AM EDT 06/13/2025 9:30 AM EDT Narrative [facility] - 06/13/2025 9:17 PM EDT FASTING:NO FASTING: NO Lydia C Hanretta DO LAB BLOOD ORDERABLES Final R esult Performing Organization Address [facility] Co de Phone Number [facility] [address] [place] [id number] * (ABNORMAL) Basic metabolic panel (06/13/2025 9:27 AM EDT) Only the most recent of2 resultswithin the time period is included. Glucose 124 65 - 139 mg/dL [facility] Comment: Non-fasting reference interval Blood Urea Nitrogen (BUN) 28(H) 7 - 25 mg/dL [facility] Creatinine 1.24 0.70 - 1.35 mg/dL [facility] Creatinine w/ eGFR 66 > OR = 60 mL/min/1.7 3m2 [facility] BUN/Creatinine Ratio 23(H) 6 - 22 (calc) [facility] Sodium 140 135 - 146 mmol/L [facility] Potassium 4.7 3.5 - 5.3 mmol/L [facility] Chloride 103 98 - 110 mmol/L [facility] CO2 29 20 - 32 mmol/L [facility] Calcium 9.4 8.6 - 10.3 mg/dL [facility] Blood Blood specimen / Unknown 06/13/2025 9:27 AM EDT 06/13/2025 9:30 AM EDT Narrative [facility] - 06/13/2025 9:17 PM EDT FASTING:NO FASTING: NO Lydia Wyman DO LAB BLOOD ORDERABLES Final R esult Performing Organization Address [facility]/ZIP Co de Phone Number [facility] [address] [place] [phone] * MRI Lumbar spine w/o contrast (05/31/2025 8:50 PM EDT) Anatomical Region Laterality Modality L-spine Magnetic Resonan ce 05/31/2025 10:1 7 PM EDT Impressions 05/31/2025 10:24 PM EDT Mild degenerative changes as described. Narrative 05/31/2025 10:24 PM EDT Examination: MRI of the lumbar spine. History: Right leg radiculopathy Technique: Sagittal and axial T1 sagittal and axial T2, and sagittal STIR through the lumbar spine. COMPARISON: CT abdomen and pelvis 02/24/2025. Findings: The vertebral body height, alignment, and marrow signal are within normal limits. The conus is normal and ends at L1. L1-2: Normal disc. Mild facet arthropathy L2-3: Left anterolateral osteophytes. Mild lateral disc bulging. Disc abuts the left L3 nerve root. Mild facet arthropathy. L3-4: Mild disc desiccation. Normal disc height. Circumferential disc bulge. Small right foraminal disc protrusion. Disc contacts the exiting right L3 nerve root. Mild left-sided and [id number] right-sided foraminal narrowing. L4-5: Mild disc desiccation. Minimal disc height. Circumferential disc bulge. Mild facet arthropathy and ligamentum flavum thickening. Moderate bilateral foraminal narrowing. Disc abuts the exiting L4 nerve roots.. L5-S1: Mild disc desiccation. Normal disc height. No disc herniation. Facet arthropathy. Mild bilateral foraminal narrowing. Partial visualization of the cystic appearing lesion within the right kidney. This is seen to better advantage on the prior CT. Procedure Note Kirt Bustamante MD - 05/31/2025 Examination: MRI of the lumbar spine. History: Right leg radiculopathy Technique: Sagittal and axial T1 sagittal and axial T2, and sagittal STIRthrough the lumbar spine. COMPARISON: CT abdomen and pelvis 02/24/2025. Findings: The vertebral body height, alignment, and marrow signal arewithin normal limits. The conus is normal and ends at L1. L1-2: Normal disc. Mild facet arthropathy L2-3: Left anterolateral osteophytes. Mild lateral disc bulging. Discabuts the left L3 nerve root. Mild facet arthropathy. L3-4: Mild disc desiccation. Normal disc height. Circumferential discbulge. Small right foraminal disc protrusion. Disc contacts the exitingright L3 nerve root. Mild left-sided and [id number] right-sidedforaminal narrowing. L4-5: Mild disc desiccation. Minimal disc height. Circumferential discbulge. Mild facet arthropathy and ligamentum flavum thickening. Moderatebilateral foraminal narrowing. Disc abuts the exiting L4 nerve roots.. L5-S1: Mild disc desiccation. Normal disc height. No disc herniation.Facet arthropathy. Mild bilateral foraminal narrowing. Partial visualization of the cystic appearing lesion within the rightkidney. This is seen to better advantage on the prior CT. IMPRESSION: Mild degenerative changes as described. us Fred White MD IMG MRI ORDERABLES Final Resul t * (ABNORMAL) Hemoglobin A1c (05/23/2025 2:18 PM EDT) Hemoglobin A1C 8.5(H) <5.7 % [facility] Comment: For someone without known diabetes, a hemoglobin A1c value of 6.5% or greater indicates that they may have diabetes and this should be confirmed with a follow-up test. For someone with known diabetes, a value <7% indicates that their diabetes is well controlled and a value greater than or equal to 7% indicates suboptimal control. A1c targets should be individualized based on duration of diabetes, age, comorbid conditions, and other considerations. Currently, no consensus exists regarding use of hemoglobin A1c for diagnosis of diabetes for children. Blood Blood specimen / Unknown 05/23/2025 2:18 PM EDT 05/23/2025 2:18 PM EDT us Fred White MD LAB BLOOD ORDERABLES Final Res ult [facility] [address] [place] [address] * (ABNORMAL) Lipid Panel Reflex Direct LDL (11/11/2024 9:37 AM EST) Cholesterol, Total 178 <200 mg/dL [facility] Cholesterol, HDL 50 > OR = 40 mg/dL [facility] Triglycerides 143 <150 mg/dL [facility] LDL Cholesterol 104(H) mg/dL (calc) [facility] Comment: Reference range: <100 Desirable range <100 mg/dL for primary prevention; <70 mg/dL for patients with CHD or diabetic patients with > or = 2 CHD risk factors. LDL-C is now calculated using the Josie calculation, which is a validated novel method providing better accuracy than the Friedewald equation in the estimation of LDL-C. Kirk PERDUE et al. WARREN. 2013;310(19): 4390-1391 (http://education.[employer]/faq/IES149) Cholesterol/HDL Ratio 3.6 <5.0 (calc) [facility] Non HDL Chol. (LDL+VLDL) 128 <130 mg/dL (calc) [facility] Comment: For patients with diabetes plus 1 major ASCVD risk factor, treating to a non-HDL-C goal of <100 mg/dL (LDL-C of <70 mg/dL) is considered a therapeutic option. Blood Blood specimen / Unknown 11/11/2024 9:37 AM EST 11/11/2024 9:37 AM EST Narrative [facility] - 11/21/2024 12:56 PM EDT FASTING:YES FASTING: YES us Tuan Brambila MD LAB BLOOD ORDERABLES Final R esult [facility] [address] [place] [id number] * (ABNORMAL) Microalbumin, Creatinine, Urine, Random (11/11/2024 9:37 AM EST) Creatinine, Urine, Random 76 20 - 320 mg/dL [facility] Microalbumin, Urine, Random 23.2 See Note: mg/dL [facility] Comment: Reference Range: Reference Range Not established Microalbumin/Crea tinine Ratio 305(H) <30 mg/g creat [facility] Comment: The ADA defines abnormalities in albumin excretion as follows: Albuminuria Category Result (mg/g creatinine) Normal to Mildly increased <30 Moderately increased 30-299 Severely increased > OR = 300 The ADA recommends that at least two of three specimens collected within a 3-6 month period be abnormal before considering a patient to be within a diagnostic category. Urine Urine specimen / Unknown 11/11/2024 9:37 AM EST 11/11/2024 9:37 AM EST Narrative [facility] - 11/21/2024 12:56 PM EDT FASTING:YES FASTING: YES Tuan Brambila MD URINE ORDERABLES Final Resul t Performing Organization Address [facility] Co de Phone Number [facility] [address] [place] [address] * Hepatitis C Ab w/Rflx to HCV RNA, PCR w/Rflx to Genotype, LiPA?? (06/07/2019 10:50 AM EDT) Hepatitis C Antibody NON-REACT MORENA NON-REACT MORENA [facility] Hepatitis C Antibody (s/co) 0.02 <1.00 [facility] Comment: HCV antibody was non-reactive. There is no laboratory evidence of HCV infection. In most cases, no further action is required. However, if recent HCV exposure is suspected, a test for HCV RNA (test code 53892) is suggested. For additional information, please refer to http://education.[employer]/faq/GBH109 (This link is being provided for informational/ educational purposes only.) 06/07/2019 10:5 0 AM EDT 06/07/2019 10:51 AM EDT Narrative [facility] - 06/08/2019 10:23 PM EDT FASTING:NO FASTING: NO Ordered by External Provider. [id number], YG RANDOLPH T Resulting Agency Comment Performing Organization Information: Site ID: [id number] Name: [facility] Address: [address] [place] [address], [place] [address] Director: Gilmar Hawkins MD External Provider LAB BLOOD ORDERABLES Final Result Performing Organization Address [facility] Co de Phone Number [facility] [address], [address] [place], [place] [phone] * HIV 1/2 Ag/Ab CMIA Reflex to Confirmation (06/07/2019 10:50 AM EDT) HIV Ag/Ab, 4th Gen NON-REACT MORENA NON-REACT MORENA [facility] Comment: HIV-1 antigen and HIV-1/HIV-2 antibodies were not detected. There is no laboratory evidence of HIV infection. PLEASE NOTE: This information has been disclosed to you from records whose confidentiality may be protected by state law. If your state requires such protection, then the state law prohibits you from making any further disclosure of the information without the specific written consent of the person to whom it pertains, or as otherwise permitted by law. A general authorization for the release of medical or other information is NOT sufficient for this purpose. For additional information please refer to http://education.[employer]/faq/YZR734 (This link is being provided for informational/ educational purposes only.) The performance of this assay has not been clinically validated in patients less than 2 years old. 06/07/2019 10:5 0 AM EDT 06/07/2019 10:51 AM EDT Narrative [facility] - 06/08/2019 10:23 PM EDT FASTING:NO FASTING: NO Ordered by External Provider. [id number], YG RANDOLPH, T Resulting Agency Comment Performing Organization Information: Site ID: [id number] Name: [facility] Address: [address] [place] [address], [place] [address] Director: Gilmar Hawkins MD External Provider LAB BLOOD ORDERABLES Final Result [facility] [address] [place] [address], [place] [address] from Last 3 Months or Most Recently Relevant to Health Maintenance [facility] HMO [facility] ONE CALL MEDICAL Advance Directives * Full Code (Latest Code Status on File) Date Activated Date Inactivated Comments 08/19/2024 2:20 PM 12/18/2024 11:59 PM * Full Code Date Activated Date Inactivated Comments 08/19/2024 5:36 AM 08/19/2024 2:20 PM * Full Code Date Activated Date Inactivated Comments 07/12/2024 11:18 AM 07/25/2024 3:37 PM * Full Code Date Activated Date Inactivated Comments 10/25/2021 8:29 AM 10/24/2022 5:27 PM * Full Code Date Activated Date Inactivated Comments 11/02/2020 5:30 AM 03/07/2021 8:09 PM Healthcare Agents on File Name Relationship Healthcare Agent Relationship Communication Charline Cruz Spouse 4. 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
--- OUTSIDE RECORDS SUMMARY | 2025-08-05 22:16 | XMS_ITS | Encounter Summary ---
Author Organization [facility] Address [address] [place] [address] Care Team Providers Care Health Information Internship Name Role Phone Lawrence Casanova MD Primary Care Provider [phone] Lydia Wyman DO Unavailable [phone] Katelin Frazier RN Unavailable Erick House DO Unavailable [phone] Sharita Pearson RN Unavailable Encounter Details Date Type Department Care Team (Late st Contact Info) Description 04/12/2025 Scanned Document [facility] [address] [phone] Kirt Dutton MD [address] [place] [id number] Social History Tobacco Use Types Packs/Day Years Used Date Smoking Tobacco: Never Smokeless Tobacco: Never Alcohol Use Standard Drinks/Week Comments No 0 (1 standard drink = 0.6 oz pur e alcohol) [facility] Utilities Answer Date Recorded In the past 12 months has [employer] electric, gas, oil, or water company threatened [...] in the past 12 m [facility], were you homeless or living [...] on filedocumented in this encounter Care Teams Health Information Internship Relationship Specialty Start Date End Date Lawrence Casanova MD [address] [place] [address] PCP - General Family Medicine 04/07/19 Lydia Wyman DO [address] [place] [address] Primary Dice Dealer Cardiovascular Disease 10/18/21 Katelin Frazier RN [address] [place] [address] Oncology Nurse Navigator 07/29/24 Erick House DO [address] [phone] Physician Hematology Oncology 07/29/25 Sharita Pearson RN [address] [phone] Oncology Nurse Navigator 07/29/25 documented as of this encounter
--- OUTSIDE RECORDS SUMMARY | 2025-08-05 22:16 | XMS_ITS | Clinical Summary ---
Author Organization [facility] Address [address] [place] [address] Phone Care Team Providers Care Fiber Technician Name Role Phone Maurice Padilla MD Primary Care Provider [phone] Allergies Active Allergy Reactions Criticality Noted Date Comments Oxycodone-Acetaminop hen Hives,Itching,Nausea And Vomiting Medium 05/12/2016 Stomach itches Stomach itches itchy Stomach itches itchy Stomach itches itchy itchy Sulfamethoxazole-Tri methoprim Nausea And Vomiting Low 10/05/2024 Medications acetaminophen (TYLENOL) 500 mg tablet Take 2 tablets (1,000 mg total) by mouth every 6 hours as needed. Active fluticasone propion-salmet Seun (ADVAIR DISKUS) 500-50 mcg/dose diskus inhaler Inhale 1 puff by mouth 2 (two) times a day. Rinse mouth with water after use to reduce aftertaste and incidence of candidiasis. Do not swallow. Active albuterol HFA (PROAIR HFA ; PROVENTIL HFA ; VENTOLIN HFA) 90 mcg/actuation inhaler Inhale 2 puffs by mouth every 6 hours as needed. 5 Active alcohol swabs pads, medicated See administration instructions. 5 Active amLODIPine (NORVASC) 10 mg tablet Take 1 tablet (10 mg total) by mouth daily. 4 Active atorvastatin (LIPITOR) 20 mg tablet Take 1 tablet (20 mg total) by mouth daily. 4 Active benzonatate (TESSALON) 200 mg capsule Take 1 capsule (200 mg total) by mouth 3 times daily as needed. 5 Active desloratadine (CLARINEX) 5 mg tablet Take 1 tablet (5 mg total) by mouth once daily as needed. 4 Active NovoLOG Flexpen U-100 Insulin 100 unit/mL (3 mL) injection pen 4 Active insulin degludec (TRESIBA FlexTouch) 100 unit/mL (3 mL) injection pen Inject 28 Units under the skin daily. 5 Active ipratropium (ATROVENT) 42 mcg (0.06 %) nasal spray SPRAY 2 SPRAYS INTO INTO EACH NOSTRIL 3 TIMES A DAY NEEDED FOR RHINITIS 5 Active lisinopril-hyd roCHLOROthiazi de (PRINZIDE,ZEST ORETIC) 20-12.5 mg per tablet Take 2 tablets by mouth daily. 9 Active metoprolol succinate (TOPROL-XL) 200 mg 24 hr tablet Take 1 tablet (200 mg total) by mouth 1 (one) time each day. Active mometasone (ELOCON) 0.1 % ointment Apply 1 Application topically 1 (one) time each day. 5 Active mometasone (NASONEX) 50 mcg/actuation nasal spray Administer 1 spray into affected nostril(s) once daily as needed. Active pantoprazole (PROTONIX) 40 mg EC tablet Take 1 tablet (40 mg total) by mouth 1 (one) time each day. 5 Active predniSONE (DELTASONE) 10 mg tablet Take 4 tablets (40 mg total) by mouth daily. 5 Active sertraline (ZOLOFT) 25 mg tablet Take 2 tablets (50 mg total) by mouth 1 (one) time each day. Active tamsulosin (FLOMAX) 0.4 mg 24 hr capsule Take 1 capsule (0.4 mg total) by mouth daily. 4 Active valACYclovir (VALTREX) 500 mg tablet Take 1 tablet (500 mg total) by mouth 1 (one) time each day. Active gabapentin (NEURONTIN) 300 mg capsule Take 1 capsule (300 mg total) by mouth 3 (three) times a day. 90 capsule 2 09/ 026 Active Active Problems Problem Noted Date Diagnosed Date Cognitive communication deficit 04/08/2025 Intractable chronic post-traumatic headache 03/09 Concussion 03/25/2025 Encounters Date Type Department Care Team Description 07/25/2025 2:30 PM EST Treatment [facility] OP Speech Language Pathology Therapy [address] [place] [address] Georgia Ambrose CCC-CLEAT BLANKER Cognitive communication deficit (Primary Dx) 07/13/2025 2:30 PM EST Treatment [facility] OP Physical Therapy [address] [facility] [place] [address] Luís Curry, PT Concussion without loss of consciousness, sequela (CMS/HCC V24) (Primary Dx) 07/08/2025 1:00 PM EDT Treatment [facility] Speech Language Pathology Therapy [address] [place] [address], [place] [phone] Georgia Ambrose, TRISH-CLEAT BLANKER Cognitive communication deficit (Primary Dx) 07/06/2025 2:30 PM EDT Treatment [facility] OP Physical Therapy [address] [facility] [place] [phone] Luís Curry, PT Concussion without loss of consciousness, sequela (CMS/HCC V24) (Primary Dx) 07/04/2025 2:30 PM EDT Treatment [facility] Physical Therapy [address] [facility] [place] [address] Luís Curry, PT Concussion without loss of consciousness, sequela (CMS/HCC V24) (Primary Dx) 07/01/2025 11:00 AM EDT Treatment [facility] Physical Therapy [address] [facility] [place] [phone] Luís Curry, PT Concussion without loss of consciousness, sequela (CMS/HCC V24) (Primary Dx) 07/01/2025 10:15 AM EDT Treatment [facility] Speech Language Pathology Therapy [address] [facility] [place] [address] Georgia Ambrose CCC-CLEAT BLANKER Cognitive communication deficit (Primary Dx) 06/27/2025 11:45 AM EDT Treatment [facility] Speech Language Pathology Therapy [address] [facility] [place] [phone] Georgia Ambrose CCC-CLEAT BLANKER Cognitive communication deficit (Primary Dx) 06/27/2025 11:00 AM EDT Treatment [facility] Physical Therapy [address] [place] [phone] Phyllis Queen, PT Concussion without loss of consciousness, sequela (CMS/HCC V24) (Primary Dx) 06/27/2025 Plan of Care Documentation [facility] OP Speech Language Pathology Therapy [address] [place] [address], [place] [phone] 06/24/2025 1:45 PM EDT Treatment [facility] Speech Language Pathology Therapy [address] [place] [phone] Buffy Galeano CCC-CLEAT BLANKER Cognitive communication deficit (Primary Dx) 06/21/2025 1:00 PM EDT Office Visit [facility] [address] [place] [address] Aimee Dallas, MALA Intractable chronic post-traumatic headache (Primary Dx); Concussion without loss of consciousness, sequela (CMS/HCC V24); Cognitive communication deficit 06/17/2025 10:15 AM EDT Treatment [facility] Speech Language Pathology Therapy [address] [place] [phone] Buffy Galeano CCC-CLEAT BLANKER Cognitive communication deficit (Primary Dx) 06/17/2025 9:30 AM EDT Treatment [facility] Physical Therapy [address] [facility] [place] [phone] Phyllis Queen, PT Concussion without loss of consciousness, sequela (CMS/HCC V24) (Primary Dx) 06/10/2025 1:45 PM EDT Treatment [facility] OP Physical Therapy [address] [facility] [place] [phone] Luís Curry, PT Concussion without loss of consciousness, sequela (CMS/HCC V24) (Primary Dx) 06/10/2025 1:00 PM EDT Treatment [facility] Speech Language Pathology Therapy [address] [place] [phone] Georgia Ambrose, CCC-CLEAT BLANKER Cognitive communication deficit (Primary Dx) 06/07/2025 3:15 PM EDT Treatment [facility] Physical Therapy [address] [place] [phone] Luís Curry, PT Concussion without loss of consciousness, sequela (CMS/HCC V24) (Primary Dx) 06/07/2025 2:30 PM EDT Treatment [facility] Speech Language Pathology Therapy [address] [place] [phone] Buffy Galeano CCC-CLEAT BLANKER Cognitive communication deficit (Primary Dx) 06/01/2025 3:15 PM EDT Treatment [facility] Physical Therapy [address] [place] [phone] Luís Curry, PT Concussion without loss of consciousness, sequela (CMS/HCC V24) (Primary Dx) 06/01/2025 2:30 PM EDT Treatment [facility] Speech Language Pathology Therapy [address] [place] [phone] Buffy Galeano [facility]-CLEAT BLANKER Cognitive communication deficit (Primary Dx) 05/30/2025 1:45 PM EDT Treatment [facility] Physical Therapy [address] [place] [phone] Luís Curry, PT Concussion without loss of consciousness, sequela (CMS/HCC V24) (Primary Dx) 05/30/2025 1:00 PM EDT Treatment [facility] Speech Language Pathology Therapy [address] [place] [phone] Georgia Ambrose CCC-CLEAT BLANKER Cognitive communication deficit (Primary Dx) 05/30/2025 Plan of Care Documentation [facility] Physical Therapy [address] [place] [phone] 05/23/2025 11:45 AM EDT Treatment [facility] OP Speech Language Pathology Therapy [address] [facility] [place] [phone] Buffy Galeano, [facility]-CLEAT BLANKER Cognitive communication deficit (Primary Dx) 05/23/2025 10:30 AM EDT Treatment [facility] OP Physical Therapy [address] [facility] [place] [phone] Ruthann Rodríguez, PT Concussion without loss of consciousness, sequela (CMS/HCC V24) (Primary Dx) 05/19/2025 [place] [facility] [address] [place] [phone] Aimee Dallas, MALA 05/17/2025 9:15 AM EDT Treatment [facility] Speech Language Pathology Therapy [address] [place] [phone] Georgia Ambrose, [facility]-CLEAT BLANKER Cognitive communication deficit (Primary Dx) 05/17/2025 8:00 AM EDT Treatment [facility] Physical Therapy [address] [place] [phone] Sarmad Aaron, PT Concussion without loss of consciousness, sequela (CMS/HCC V24) (Primary Dx) 05/11/2025 3:00 PM EDT [place] [facility] [address] [place] [phone] Aimee Dallas, MALA Intractable chronic post-traumatic headache (Primary Dx); Concussion without loss of consciousness, sequela (CMS/HCC V24) 05/10/2025 3:15 PM EDT Treatment [facility] OP Physical Therapy [address] [facility] [place] [phone] Elissa uRiz, PT Concussion without loss of consciousness, subsequent encounter (Primary Dx) 05/10/2025 2:30 PM EDT Treatment [facility] Speech Language Pathology Therapy [address] [place] [phone] Georgia Ambrose, CCC-CLEAT BLANKER Cognitive communication deficit (Primary Dx) from Last 3 Months Surgical History Surgery Date Site/Laterality Comments COLONOSCOPY PROCEDURE:COLONOSCOPY UPPER GASTROINTESTINAL ENDOSCOPY PROCEDURE:UPPER GASTROINTESTINAL ENDOSCOPY EYE SURGERY PROCEDURE:EYE SURGERY;COMMENT:lazy eye age [age] APPENDECTOMY PROCEDURE:APPENDECTOMY KNEE ARTHROSCOPY 06/12/2017 Right PROCEDURE:KNEE ARTHROSCOPY;COMMENT:Procedure : RIGHT KNEE ARTHROSCOPIC MEDIAL MENISCAL; Surgeon: Rg Beasley MD; Location: [facility]; [facility]; Laterality: Right; Medical History Medical History Date Comments Osteoarthritis DX:Osteoarthriti s GERD (gastroesophageal reflux disease) DX:GERD (gastroesophageal reflux disease) Hypertension DX:Hypertension Sleep apnea, obstructive DX:Slee p apnea, obstructive;COMMENT:c-pap bring Kidney stone DX:Kidney stone Anxiety DX:Anxiety;COMME NT:hx of HL (hearing loss) DX:HL (hearing loss);COMMENT:sligth--right ear Diabetes mellitus, type II ( CMS/HCC V24, CMS/HCC V28) DX:Diabetes mellitus, type I I ([facility]);COMMENT:prediabetic Knee meniscus pain, right DX:Kne e meniscus pain, right Rash DX:Rash;COMMENT: jock itch, arm pit rash prn Herpes zoster dermatitis DX:Herp es zoster dermatitis;COMMENT:hx of Asthma DX:Asthma;COMMEN T:instructed to bring proair inhalers with him d.o.s. Social History Tobacco Use Types Packs/Day Years Used Date Smoking Tobacco: Never Alcohol Use Standard Drinks/Week Comments No 0 (1 standard drink = 0.6 oz pur e alcohol) Sex and Gender Information Value Date Recorded Sex Assigned at Not on file Legal Sex Male 11:39 AM EST Gender Identity Not on file Sexual Orientation Not on file Obstetrics History Last Filed Vital Signs Vital Sign Reading Time Taken Comments Blood Pressure 132/77 06/21/2025 1:16 PM EDT Pulse 71 06/21/2025 1:16 PM EDT Temperature - - Respiratory Rate - - Oxygen Saturation 96% 03/25/2025 8:35 AM EDT Inhaled Oxygen Concentration - - Weight 134 kg (295 lb) 05/11/2025 3:42 PM EDT Height 175.3 cm (5' 9 ) 05/11/2025 3:42 PM EDT Body Mass Index 43.56 05/11/2025 3:42 PM EDT Plan of Treatment Upcoming Encounters Date Type Department Care Team (Late st Contact Info) Description 08/12/2025 2:30 PM EST Treatment [facility] Speech Language Pathology Therapy [address] [place] [phone] Georgia Ambrose CCC-CLEAT BLANKER 08/12/2025 3:15 PM EST Treatment [facility] [address] [facility] [place] [phone] Luís Curry, PT 08/16/2025 4:00 PM EST Office Visit [facility] [address] [place] [phone] Aimee Dallas, SOLE ROUNDER [address] [place] [address] 08/19/2025 1:00 PM EST Treatment [facility] Speech Language Pathology Therapy [address] [facility] [place] [phone] Georgia Ambrose CCC-CLEAT BLANKER 08/19/2025 1:45 PM EST Treatment [facility] OP Physical Therapy [address] [place] [phone] Luís Curry, PT 08/22/2025 9:30 AM EST Treatment [facility] OP Physical Therapy [address] [facility] [place] [phone] Luís Curry, PT Health Maintenance Due Date Last Done Comments Colorectal Cancer Screening: Colonoscopy 1963 Diabetes: Annual Foot Exam 1973 Diabetes: Annual Retina Eye Exam 1973 RSV Immunization Adult Patients (1 - Risk 50-74 years 1-dose series) 2013 Depression Screening 09/08/2024 Cholesterol Screening (Lipid Panel) 03/08/2025 HIV Screening 03/08/2025 Hepatitis C Screening 03/08/2025 Social Influencers of Health Screening 03/08/2025 COVID-19 Vaccine ( season) 2025 09/18/2023, 08/24/2021, 11/01/2020, Additional history exists Influenza Vaccine (#1) 2025 , 07/08/2023, 07/10/2022, Additional history exists Diabetes: Blood Sugar Control Test (HGBA1C) 08/19/2025 02/17/2025 Diabetes: Annual Urine Albumin-Creatinine Ratio (uACR) 11/11/2025 11/11/2024, 06/03/2024 Diabetes: Annual GFR (Glomerular Filtration Rate) 06/13/2026 06/13/2025, 05/23/2025, 05/03/2025, Additional history exists Hypertension/CHF/CAD Annual BMP Blood Test 06/13/2026 06/13/2025, 05/23/2025, 05/03/2025, Additional history exists DTaP,Tdap,and Td Vaccines (2 - Td or Tdap) 01/17/2033 01/17/2023 Pneumococcal Vaccine: 50+ Years Completed 01/17/2023 Zoster Vaccines Completed 03/21/2023, 01/17/2023 HIB Vaccines Aged Out 08/03/2024 No longer eligi ble based on patient's age to complete this topic Meningococcal ACWY Vaccine Aged Out 09/09/2024, No longer eligible based on patient's age to complete this topic Meningococcal B Vaccine Aged Out 09/09/2024, 08/03 No longer eligible based on patient's age to complete this topic HPV Vaccines Aged Out No longer eligi ble based on patient's age to complete this topic Hepatitis A Vaccines Aged Out No long er eligible based on patient's age to complete this topic Hepatitis B Vaccines Aged Out No long er eligible based on patient's age to complete this topic IPV Vaccines Aged Out No longer eligi ble based on patient's age to complete this topic MMR Vaccines Aged Out No longer eligi ble based on patient's age to complete this topic RSV Immunization Patients Under 20 months Aged Out No longer eligible based on patient's age to complete this topic Varicella Vaccines Aged Out No longer eligible based on patient's age to complete this topic Goals Goal Patient Goal Type Associated Problems Recent Progress Patient-Stated? Author PT Concussion Goals General Yes Rudi Rolle III, PT Note: In 3 to 4 weeks: Patient will have a symptom improvement on the VOMS in relation to: VOR vertical, VOR horizontal and Visual motion sensitivity of > or = 2 points for dizziness, [place] and fogginess for pursuit of a return to the patient's PLOF (initial) Patient will perform a floor recovery using external UE support with guidance assist, for pursuit of the ability to perform higher-level transitional movements (initial) Patient will ambulate for 6 total minutes while requiring < or = 2 rest breaks, for pursuit of an increased functional activity capacity consistent with the patient's PLOF (initial) Patient will report a [place] Post Concussion Symptoms Questionnaire score improvement of > or = 5 points, for pursuit of a return to his PLOF (initial) In 6 to 8 weeks: Patient will demonstrate a resolution to negative symptoms in relation to the VOMS associated with: VOR vertical, VOR horizontal and Visual motion sensitivity, for pursuit of a return to the patient's PLOF (initial) Patient will perform a floor recovery using external UE support with Mod I, for pursuit of the ability to perform higher-level transitional movements (initial) Patient will ambulate for 8 total minutes while requiring < or = 2 rest breaks, for pursuit of an increased functional activity capacity consistent with the patient's PLOF (initial) Patient will report a [place] Post Concussion Symptoms Questionnaire score improvement of > or = 10 points, for pursuit of a return to his PLOF (initial) CLEAT BLANKER GOALS General No Georgia Ambrose, [facility]-CLEAT BLANKER Note: SHORT TERM GOALS: Comprehension/Attention: _1. Pt will be trained in attentional strategies and aides and will implement these on functional tasks with 85% acc with min cues. Pt has been trained in attention strategies and is implementing these with increased consistency at increased success. Implementation of strategy use is at 85%+ acc _2. Pt will complete min-mod complex functional tasks addressing receptive attention with 85% acc with cues for strategy use. Accuracy averages 91% on tasks of min- mod complexity. Goal has been MET _3. Pt will complete mental manipulation tasks with 80% acc with min cues. This goal has not been addressed in favor of other goals. Comprehension/Memory: _1. The pt will be trained in the use of compensatory memory strategies and will implement these on functional tasks and in daily life activities 85% of the time with mod cues. Goal MET. The pt was trained in strategy use and is using strategies within his daily life activities with 85%+ acc. _2. The pt will comprehend and recall information presented on functional therapy tasks, and will recall information related to daily events, such as appointments, with 80% acc with mod cues for strategy use. Accuracy averages 70%, with increased acc with repetitions and reminders for strategy use. Goal is ONGOING Speed of Processing: _1. Pt will complete functional tasks addressing processing speed with 80% acc. This goal has not been addressed in favor of other goals. Word Finding: _1. Pt will be trained in the use of compensatory word retrieval strategies and will implement these in conversation 85% of the time with min cues. Goal MET. Pt was trained in word retrieval strategies and is using these with 85%+ acc with success within conversation. _2. Pt will express information in conversation with 90% acc with cues for strategy use. Goal MET. Gains demonstrated in word retrieval skills within conversation. Accuracy is at 95%. _3. Pt will complete mod complex word retrieval tasks with 85% acc with min cues. Gains demonstrated in word retrieval skills on mod complex tasks, with acc averaging 90%. Goal MET ALF GOALS: Spoken Language Expression Goal: Pt will demonstrate functional verbal expression/word retrieval skills for all communicative interactions with independent use of compensatory strategies in 4 weeks. Attention Goal: Pt will demonstrate improved comprehension/attention related to his daily life activities and for return to work with use of compensatory strategies in 4 weeks. Memory Goal: Pt will demonstrate improved receptive memory related to his daily life activities and for return to work with use of compensatory strategies in 4 weeks. ALF GOALS ARE ONGOING NEW SHORT TERM GOALS: Comprehension/Attention: _1. Pt will utilize attentional strategies and aides on functional tasks with 90% acc with min cues. _2. Pt will complete min-mod to mod complex functional tasks addressing receptive attention with 90% acc with cues for strategy use. _3. Pt will complete mental manipulation tasks with 80% acc with min cues. Comprehension/Memory: _1. The pt will utilize compensatory memory strategies on functional tasks and in daily life activities 90% of the time with min cues. _2. The pt will comprehend and recall information presented on functional therapy tasks, and will recall information related to daily events, such as appointments, with 80% acc with mod cues for strategy use. Word Finding: _1. Pt will utilize compensatory word retrieval strategies in conversation 90% of the time with no cues. _2. Pt will express information in conversation with 98% acc with independent strategy use. _3. Pt will complete mod complex word retrieval tasks with 95% acc with min cues. Insurance [facility] Care Teams Fiber Technician Relationship Specialty Start Date End Date Maurice Padilla MD [address] [place] [phone] PCP - General Anhydrous Ammonia Production Supervisor 06/05/17
--- OUTSIDE RECORDS SUMMARY | 2025-08-05 22:16 | XMS_ITS | Encounter Summary ---
Author Organization [facility] Address [address] [place] [address] Care Team Providers Care French Translator Name Role Phone Lawrence Casanova MD Primary Care Provider [phone] Lydia Wyman DO Unavailable [phone] Katelin Frazier RN Unavailable Erick House DO Unavailable [phone] Sharita Pearson RN Unavailable [phone] Encounter Details Date Type Department Care Team (Late st Contact Info) Description 07/25/2025 Scanned Document [facility] [address] [phone] Chrissy Davidson [address] [place] [phone] Social History Tobacco Use Types Packs/Day Years Used Date Smoking Tobacco: Never Smokeless Tobacco: Never Alcohol Use Standard Drinks/Week Comments No 0 (1 standard drink = 0.6 oz pur e alcohol) [facility] Utilities Answer Date Recorded In the past 12 months has [employer], gas, oil, or water company threatened [...] any time in the past 12 m [facility], were you homeless or living in a long term (including now)? No 08/20/2024 Sex and Gender [...] on filedocumented in this encounter Care Teams French Translator Relationship Specialty Start Date End Date Lawrence Casanova MD [address] [place] [address] PCP - General Family Medicine 04/07/19 Lydia Wyman DO [address] [place] [phone] Primary Emergency Worker Cardiovascular Disease 10/18/21 Katelin Frazier, WAGNER [address] [place] [phone] Oncology Nurse Navigator 07/29/24 Erick House DO [address] [phone] Physician Hematology Oncology 07/29/25 Sharita Pearson RN [address] [phone] Oncology Nurse Navigator 07/29/25 documented as of this encounter
--- OUTSIDE RECORDS SUMMARY | 2025-08-05 22:16 | XMS_ITS | Encounter Summary ---
Author Organization Formerly [facility] Address [address] [place] [address] Care Team Providers Care Diamond Saw Operator Name Role Phone Lawrence Casanova MD Primary Care Provider [phone] Lydia Wyman DO Unavailable [phone] Katelin Frazier RN Unavailable [phone] Erick House DO Unavailable [phone] Sharita Pearson RN Unavailable [phone] Encounter Details Date Type Department Care Team (Late st Contact Info) Description 08/02/2024 Scanned Document [address] [facility] [address] [place] [id number] Provider, Generic Social History Tobacco Use Types Packs/Day Years Used Date Smoking Tobacco: Never Smokeless Tobacco: Never Alcohol Use Standard Drinks/Week Comments No 0 (1 standard drink = 0.6 oz pur e alcohol) [facility] Utilities Answer Date Recorded In the past 12 months has [employer], gas, oil, or water company threatened to shut off services in your home? No 07/13/2024 AUDIT-C Answer Date Recorded Q1: How often do you have a drink containing alcohol? Never 08/03/2024 Q2: How many drinks containi ng alcohol do you have on a typical day when you are drinking? Patient does not drink Q3: How often do you have si x or more drinks on one occasion? Never 08/03/2024 PHQ-2 Answer Date Recorded PHQ-2 Total Score 0 07/12/2024 Hunger Vital Sign Answer Date Recorded Within the past 12 months, y ou worried that your food would run out before you got the money to buy more. Never true 07/13/20 24 Within the past 12 months, t he food you bought just didn't last and you didn't have money to get more. Never true 07/13/2024 PRAPARE - Transportation Answer Date Re corded In the past 12 months, has l ack of transportation kept you from medical appointments or from getting medications? No 01/2024 In the past 12 months, has l ack of transportation kept you from meetings, work, or from getting things needed for daily living? No 07/13/2024 Housing Stability Vital Sign Answer Walter e Recorded In the last 12 months, was t here a time when you were not able to pay the mortgage or rent on time? No 07/13/2024 In the past 12 months, how m any times have you moved where you were living? 1 07/13/2024 At any time in the past 12 m [facility], were you homeless or living in a custodial (including now)? No 07/13/2024 Sex and Gender Information Value Date Recorded Sex Assigned at Male 10/24/2022 6:05 PM EST Legal Sex Male 6:13 PM EDT Gender Identity Male 10/24/2022 6:05 PM EST Sexual Orientation Heterosexual (straight) 10/24 6:05 PM EST documented as of this encounter Functional Status * AUDIT-C Score Answer Date of Assessment Author 0 08/03/2024 12:28 PM Alon Cid RN * Question Answer Date of Assessment Author AUDIT-C Total Score - Male 0 08/03/2024 12:28 PM Altagracia Cid RN Q1: How often do you have a drink containing alcohol? Never 08/03/2024 12:28 PM Altagracia Cid RN Q2: How many drinks containing alcohol do you have on a typical day when you are drinking? Patient does not drink 08/03/2024 12:28 PM Altagracia Cid RN Q3: How often do you have six or more drinks on one occasion? Never 08/03/2024 12:28 PM EST Altagracia Perry RN documented as of this encounter Plan of Treatment Not on file documented as of this encounter Visit Diagnoses Not on filedocumented in this encounter Additional Health Concerns Infection Onset Date Last Indicated Resolved Time R/O Respiratory Disease 08/21/2024 08/21/202408/08 10:24 AM EST documented as of this encounter Care Teams Diamond Saw Operator Relationship Specialty Start Date End Date Lawrence Casanova MD [address] [place] [address] PCP - General Family Medicine 04/07/19 Lydia Wyman DO [address] [place] [id number] Primary Loan Operations Manager Cardiovascular Disease 10/18/21 Katelin Frazier RN [address] [place] [phone] Oncology Nurse Navigator 07/29/24 Erick House DO [address] [id number] Physician Hematology Oncology 07/29/25 Sharita Pearson RN [address] [phone] Oncology Nurse Navigator 07/29/25 documented as of this encounter
[2025-08-05 22:17] LABS: Troponin-I High Sensitivity 3.8 ng/L (<3.5-35.0)
--- OUTSIDE RECORDS SUMMARY | 2025-08-05 22:17 | XMS_ITS ---
Author Name [facility] Organization Unknown Results Test Name/Text Value Interpretation Date Range Source Sodium, POC 136.0 mmol/L 07/25/2025 132 - 142 [facility] T Total Bilirubin, POC 0.5 mg/dL 07/25/2025 0.3 - 1. 2 [facility]CT Chloride, POC 103.0 mmol/L 07/25/2025 98 - 107 HH CCT Albumin, POC 4.0 g/dL 07/25/2025 3.5 - 5.2 H[facility]CT Creatinine, POC 1.17 mg/dL 07/25/2025 0.9 - 1.3 HH CCT BUN, POC 24.0 mg/dL Above high normal 07/25/2025 6 - 20 [facility] AST, POC 4.0 U/L Below low normal 07/25/2025 7 - 31 HH [facility] ALT, POC 11.0 U/L 07/25/2025 5 - 30 [facility] Calcium, POC 9.3 mg/dL 07/25/2025 8.5 - 10.2 H[facility]CT A/G Ratio, POC 1.6 Ratio 07/25/2025 0.6 - 2.2 [facility] T ISTAT ESTIMATED GFR 70.0 07/25/2025 59 - H[facility]CT Total Protein, POC 6.5 g/dL 07/25/2025 6.4 - 8.3 [facility] Carbon Dioxide, POC 28.0 mmol/L 07/25/2025 23 - 29 [facility] Alkaline Phosphatase, POC 117.0 U/L 07/25/2025 44 - 147 [facility] Glucose, POC 206.0 mg/dL Above high normal 07/25/2025 70 - 1 05 H[facility]CT Potassium, POC 4.4 mmol/L 07/25/2025 3.5 - 5.[address] Globulin, POC 2.5 g/dL 07/25/2025 2 - 4.8 [facility] POC Glucose 189.0 mg/dL Above high normal 06/20/2025 65 - 99 [facility] Sodium SerPl-sCnc 140.0 mmol/L Normal 06/14/2025 135 - 14 6 [facility] Creat SerPl-mCnc 1.24 mg/dL Normal 06/14/2025 0.7 - 1.35 [facility] Calcium SerPl-mCnc 9.4 mg/dL Normal 06/14/2025 8.6 - 10.3 [facility] Glucose SerPl-mCnc 124.0 mg/dL Normal 06/14/2025 65 - 139 [facility] BUN/Creat SerPl 23.0 (calc) Above high normal 06/14/2025 6 - 22 [facility] CO2 SerPl-sCnc 29.0 mmol/L Normal 06/14/2025 20 - 32 QU EST BUN SerPl-mCnc 28.0 mg/dL Above high normal 06/14/2025 7 - 2 5 [facility] Potassium SerPl-sCnc 4.7 mmol/L Normal 06/14/2025 3.5 - 5 .3 [facility] eGFRcr SerPlBld CKD-EPI 2020 66.0 mL/min/1.73m2 Normal 06/14/2025 - [facility] Chloride SerPl-sCnc 103.0 mmol/L Normal 06/14/2025 98 - 1 10 [facility] Hct VFr Bld Auto 44.3 % Normal 06/14/2025 38.5 - 50 [facility] EST Hgb Bld-mCnc 14.1 g/dL Normal 06/14/2025 13.2 - 17.1 [facility] T Platelet # Bld Auto 409.0 Thousand/uL Above high normal 03/2025 140 - 400 [facility] WBC # Bld Auto 11.3 Thousand/uL Above high normal 06/14/2025 3.8 - 10.8 [facility] MCH RBC Qn Auto 27.1 pg Normal 06/14/2025 27 - [address] RBC # Bld Auto 5.21 Million/uL Normal 06/14/2025 4.2 - 5. 8 [facility] MCV RBC Auto 85.0 fL Normal 06/14/2025 80 - 100 [facility] MCHC RBC Auto-EntMCnc 31.8 g/dL Below low normal 06/14/2025 32 - 36 [facility] Erythrocyte DistWidth Bld Auto 16.1 % Above high normal 06/14/2025 11 - 15 [facility] T PMV Bld Gary-Cris 11.1 fL Normal 06/14/2025 7.5 - 12.5 [facility] Calcium SerPl-mCnc 9.2 mg/dL Normal 2025 8.6 - 10.3 [facility] Creat SerPl-mCnc 1.1 mg/dL Normal 2025 0.7 - 1.35 [facility] Glucose SerPl-mCnc 224.0 mg/dL Above high normal 2025 65 - 99 [facility] Potassium SerPl-sCnc 4.7 mmol/L Normal 2025 3.5 - 5 .3 [facility] BUN/Creat SerPl 24.0 (calc) Above high normal 2025 6 - 22 [facility] CO2 SerPl-sCnc 28.0 mmol/L Normal 2025 20 - 32 QU EST Chloride SerPl-sCnc 103.0 mmol/L Normal 2025 98 - 1 10 [facility] BUN SerPl-mCnc 26.0 mg/dL Above high normal 2025 7 - 2 5 [facility] Sodium SerPl-sCnc 138.0 mmol/L Normal 2025 135 - 14 6 [facility] eGFRcr SerPlBld CKD-EPI 2020 76.0 mL/min/1.73m2 Normal 2025 - [facility] Erythrocyte DistWidth Bld Auto 16.6 % Above high normal 2025 11 - 15 [facility] Hgb Bld-mCnc 14.5 g/dL Normal 2025 13.2 - 17.1 [facility] T Platelet # Bld Auto 419.0 Thousand/uL Above high normal 05/09 140 - 400 [facility] PMV Bld Gary-Cris 11.7 fL Normal 2025 7.5 - 12.5 [facility] RBC # Bld Auto 5.36 Million/uL Normal 2025 4.2 - 5. 8 [facility] WBC # Bld Auto 12.9 Thousand/uL Above high normal 2025 3.8 - 10.8 [facility] MCH RBC Qn Auto 27.1 pg Normal 2025 27 - [address] Hct VFr Bld Auto 45.5 % Normal 2025 38.5 - 50 QU EST MCHC RBC Auto-EntMCnc 31.9 g/dL Below low normal 2025 32 - 36 [facility] MCV RBC Auto 84.9 fL Normal 2025 80 - 100 [facility] Mixed Mononuclear, Absolute 1.0 Thou/uL 05/03/2025 0.2 - 1.9 [facility] Neutrophils/leuk NFr Bld Auto 61.8 % 05/03/2025 [facility] RBC num Bld Auto 5.33 Mil/uL 05/03/2025 4.5 - 6.2 [facility] RDW RBC Auto-Rto 17.4 % Above high normal 05/03/2025 11.5 - 14.5 [facility]CT Hgb Bld-mCnc 13.9 g/dL 05/03/2025 13 - 17.7 H[facility]CT Comment Platelet flag, interpret results with caution. Abnormal 05/03/2025 - [facility] MCH RBC Qn Auto 26.1 pg Below low normal 05/03/2025 27 - 3 1 [facility] Neutrophils num Bld Auto 6.3 Thou/uL 05/03/2025 2 - 7.5 H[facility]CT MCHC RBC Auto-mCnc 31.0 g/dL 05/03/2025 30 - 36 [facility] PMV Bld Auto 10.7 fL 05/03/2025 7.5 - 12.5 [facility]CT Lymphocytes/leuk NFr Bld Auto 28.5 % 05/03/2025 [facility]CT Lymphocytes num Bld Auto 2.9 Thou/uL 05/03/2025 1.5 - 4.5 [facility] Platelet num Bld Auto 327.0 Thou/uL 05/03/2025 150 - 450 [facility]CT Hct VFr Bld Auto 44.8 % 05/03/2025 39 - 54 HH CCT MCV RBC Auto 84.0 fL 05/03/2025 80 - 100 H[facility]CT Mixed Mononuclear 9.7 % 05/03/2025 H [facility] WBC num Bld Auto 10.2 Thou/uL 05/03/2025 4 - 11 [facility]CT CO2 SerPl-sCnc 23.0 mmol/L 05/03/2025 22 - 33 HH CCT BUN/Creat SerPl 21.0 Ratio 05/03/2025 10 - 25 HH CCT Sodium SerPl-sCnc 137.0 mmol/L 05/03/2025 136 - 14 5 [facility] Globulin Ser Calc-mCnc 2.8 g/dL 05/03/2025 1.5 - 3.9 H[facility]CT AST SerPl-cCnc 19.0 U/L 05/03/2025 10 - 55 [facility] T ALT SerPl-cCnc 28.0 U/L 05/03/2025 10 - 55 [facility] T Chloride SerPl-sCnc 103.0 mmol/L 05/03/2025 98 - 1 07 [facility]CT Albumin SerPl-mCnc 4.0 g/dL 05/03/2025 3.4 - 4.8 [facility]CT Glucose SerPl-mCnc 215.0 mg/dL Above high normal 05/03/2025 65 - 99 [facility]CT Calcium SerPl-mCnc 9.2 mg/dL 05/03/2025 8.7 - 10.5 H[facility]CT Prot SerPl-mCnc 6.8 g/dL 05/03/2025 6.3 - 8.[address] Bilirub SerPl-mCnc 0.3 mg/dL 05/03/2025 0.2 - 1 H[facility]CT Anion Gap Bld-sCnc 11.0 05/03/2025 7 - 17 [facility]CT Potassium SerPl-sCnc 4.3 mmol/L 05/03/2025 3.4 - 5 .3 [facility]CT BUN SerPl-mCnc 19.0 mg/dL 05/03/2025 8 - [address] GFR/BSA.pred SerPlBld [id number] >90.0 05/03/2025 59 - HHCCT ALP SerPl-cCnc 145.0 U/L Above high normal 05/03/2025 45 - 1 28 [facility]CT Creat SerPl-mCnc 0.9 mg/dL 05/03/2025 0.5 - 1.3 HH CCT Albumin/Glob SerPl 1.4 Ratio 05/03/2025 1 - 3 [facility]CT Hct VFr Bld Auto 45.0 % Normal 04/23/2025 38.5 - 50 [facility] EST Calcium SerPl-mCnc 9.8 mg/dL Normal 04/23/2025 8.6 - 10.3 [facility] CO2 SerPl-sCnc 25.0 mmol/L Normal 04/23/2025 20 - 32 QU EST Glucose SerPl-mCnc 188.0 mg/dL Above high normal 04/23/2025 65 - 139 [facility] Chloride SerPl-sCnc 102.0 mmol/L Normal 04/23/2025 98 - 1 10 [facility] Potassium SerPl-sCnc 4.8 mmol/L Normal 04/23/2025 3.5 - 5 .3 [facility] BUN/Creat SerPl 19.0 (calc) Normal 04/23/2025 6 - 22 [facility] BUN SerPl-mCnc 26.0 mg/dL Above high normal 04/23/2025 7 - 2 5 [facility] eGFRcr SerPlBld CKD-EPI 2020 60.0 mL/min/1.73m2 Normal 04/23/2025 - [facility] Creat SerPl-mCnc 1.34 mg/dL Normal 04/23/2025 0.7 - 1.35 [facility] Sodium SerPl-sCnc 135.0 mmol/L Normal 04/23/2025 135 - 14 6 [facility] POC Glucose 172.0 mg/dL Above high normal 02/17/2025 65 - 99 [facility] Hgb Bld-mCnc 13.9 g/dL Normal 02/10/2025 13.2 - 17.1 [facility] T Neutrophils NFr Bld Auto 67.2 % Normal 02/10/2025 [facility] Basophils NFr Bld Auto 0.3 % Normal 02/10/2025 [facility] PMV Bld Gary-Cris 11.8 fL Normal 02/10/2025 7.5 - 12.5 [facility] WBC # Bld Auto 10.5 Thousand/uL Normal 02/10/2025 3.8 - 1 0.8 [facility] MCHC RBC Auto-EntMCnc 30.6 g/dL Below low normal 02/10/2025 32 - 36 [facility] Lymphocytes # Bld Auto 2016.0 cells/uL Normal 02/10/2025 850 - 3900 [facility] Eosinophil NFr Bld Auto 1.9 % Normal 02/10/2025 [facility] Neutrophils # Bld Auto 7056.0 cells/uL Normal 02/10/2025 1500 - 7800 [facility] Hct VFr Bld Auto 45.4 % Normal 02/10/2025 38.5 - 50 QU EST RDW RBC Auto 19.1 % Above high normal 02/10/2025 11 - 15 [facility] Monocytes # Bld Auto 1197.0 cells/uL Above high normal 02/10 200 - 950 [facility] Lymphocytes NFr Bld Auto 19.2 % Normal 02/10/2025 [facility] Eosinophil # Bld Auto 200.0 cells/uL Normal 02/10/2025 15 - 500 [facility] Platelet # Bld Auto 381.0 Thousand/uL Normal 02/10/2025 1 40 - 400 [facility] RBC # Bld Auto 5.49 Million/uL Normal 02/10/2025 4.2 - 5. 8 [facility] Monocytes NFr Bld Auto 11.4 % Normal 02/10/2025 [facility] RBC Auto 82.7 fL Normal 02/10/2025 80 - 100 [facility] Basophils # Bld Auto 32.0 cells/uL Normal 02/10/2025 0 - 200 [facility] MCH RBC Qn Auto 25.3 pg Below low normal 02/10/2025 27 - 3 3 [facility] ALP SerPl-cCnc 107.0 U/L Normal 02/10/2025 35 - 144 [facility] T Prot SerPl-mCnc 6.4 g/dL Normal 02/10/2025 6.1 - 8.[address] CO2 SerPl-sCnc 27.0 mmol/L Normal 02/10/2025 20 - 32 [facility] EST eGFRcr SerPlBld CKD-EPI 2020 78.0 mL/min/1.73m2 Normal 02/10/2025 - [facility] Glucose SerPl-mCnc 198.0 mg/dL Above high normal 02/10/2025 65 - 99 [facility] ALT SerPl-cCnc 21.0 U/L Normal 02/10/2025 9 - 46 [facility] Potassium SerPl-sCnc 4.8 mmol/L Normal 02/10/2025 3.5 - 5 .3 [facility] Sodium SerPl-sCnc 138.0 mmol/L Normal 02/10/2025 135 - 14 6 [facility] Albumin/Glob SerPl 1.8 (calc) Normal 02/10/2025 1 - 2.5 [facility] Bilirub SerPl-mCnc 0.3 mg/dL Normal 02/10/2025 0.2 - 1.2 [facility] AST SerPl-cCnc 12.0 U/L Normal 02/10/2025 10 - 35 [facility] BUN SerPl-mCnc 28.0 mg/dL Above high normal 02/10/2025 7 - 2 5 [facility] Chloride SerPl-sCnc 104.0 mmol/L Normal 02/10/2025 98 - 1 10 [facility] Globulin Ser Calc-mCnc 2.3 g/dL (calc) Normal 02/10/2025 1.9 - 3.7 [facility] Calcium SerPl-mCnc 9.3 mg/dL Normal 02/10/2025 8.6 - 10.3 [facility] Albumin SerPl-mCnc 4.1 g/dL Normal 02/10/2025 3.6 - 5.1 [facility] BUN/Creat SerPl 26.0 (calc) Above high normal 02/10/2025 6 - 22 [facility] Creat SerPl-mCnc 1.08 mg/dL Normal 02/10/2025 0.7 - 1.35 [facility] Chloride, POC 105.0 mmol/L Normal 12/14/2024 98 - 107 [facility] Total Protein, POC 6.3 g/dL Below low normal 12/14/2024 6.4 - 8.3 [facility]CT Calcium, POC 9.0 mg/dL Normal 12/14/2024 8.5 - 10.2 [facility]CT Carbon Dioxide, POC 25.0 mmol/L Normal 12/14/2024 23 - 29 [facility] Glucose, POC 152.0 mg/dL Above high normal 12/14/2024 70 - 1 05 [facility] Potassium, POC 3.9 mmol/L Normal 12/14/2024 3.5 - 5.[address] AST, POC 7.0 U/L Normal 12/14/2024 7 - 31 [facility] ALT, POC 7.0 U/L Normal 12/14/2024 5 - 30 [facility] Creatinine, POC 1.0 mg/dL Normal 12/14/2024 0.9 - 1.[address] Globulin, POC 2.5 g/dL Normal 12/14/2024 2 - 4.8 [facility]CT Alkaline Phosphatase, POC 106.0 U/L Normal 12/14/2024 44 - 147 [facility] ISTAT ESTIMATED GFR 86.0 Normal 12/14/2024 59 - [facility]CT Sodium, POC 139.0 mmol/L Normal 12/14/2024 132 - 142 [facility] T A/G Ratio, POC 1.5 Ratio Normal 12/14/2024 0.6 - 2.2 [facility] T Total Bilirubin, POC 0.6 mg/dL Normal 12/14/2024 0.3 - 1. 2 [facility] BUN, POC 21.0 mg/dL Above high normal 12/14/2024 6 - 20 [facility] Albumin, POC 3.8 g/dL Normal 12/14/2024 3.5 - 5.2 [facility]CT RDW RBC Auto-Rto 17.7 % Above high normal 12/14/2024 11.5 - 14.5 [facility] Mixed Mononuclear 12.6 % Normal 12/14/2024 H [facility] RBC num Bld Auto 5.27 Mil/uL Normal 12/14/2024 4.5 - 6.2 [facility]CT WBC num Bld Auto 10.5 Thou/uL Normal 12/14/2024 4 - 11 [facility] Lymphocytes/leuk NFr Bld Auto 28.6 % Normal 12/14/2024 [facility] Mixed Mononuclear, Absolute 1.3 Thou/uL Normal 12/14/2024 0.2 - 1.9 [facility]CT MCHC RBC Auto-mCnc 31.0 g/dL Normal 12/14/2024 30 - 36 [facility]CT PMV Bld Auto 10.3 fL Normal 12/14/2024 7.5 - 12.5 H[facility]CT Hct VFr Bld Auto 42.6 % Normal 12/14/2024 39 - 54 HH CCT Platelet num Bld Auto 360.0 Thou/uL Normal 12/14/2024 150 - 450 [facility] MCV RBC Auto 81.0 fL Normal 12/14/2024 80 - 100 [facility] Neutrophils/leuk NFr Bld Auto 58.8 % Normal 12/14/2024 [facility]CT Neutrophils num Bld Auto 6.2 Thou/uL Normal 12/14/2024 2 - 7.5 [facility]CT Lymphocytes num Bld Auto 3.0 Thou/uL Normal 12/14/2024 1.5 - 4.5 [facility]CT Hgb Bld-mCnc 13.2 g/dL Normal 12/14/2024 13 - 17.7 [facility]CT MCH RBC Qn Auto 25.0 pg Below low normal 12/14/2024 27 - 3 1 [facility] Albumin/Creat Ur 305.0 mg/g creat Above high normal 11/22/19 25 - 30 [facility] Microalbumin Ur-mCnc 23.2 mg/dL Normal 11/21/2024 - [facility] Creat Ur-mCnc 76.0 mg/dL Normal 11/21/2024 20 - 320 [facility] T LDLc SerPl Calc-mCnc 104.0 mg/dL (calc) Above high normal [facility] HDLc SerPl-mCnc 50.0 mg/dL Normal 11/21/2024 - QU EST NonHDLc SerPl-mCnc 128.0 mg/dL (calc) Normal 11/21/2024 - 130 [facility] Cholest SerPl-mCnc 178.0 mg/dL Normal 11/21/2024 - 200 [facility] Trigl SerPl-mCnc 143.0 mg/dL Normal 11/21/2024 - 150 [facility] Cholest/HDLc SerPl 3.6 (calc) Normal 11/21/2024 - 5 [facility] Aldost/Renin SerPl-Rto 28.2 Ratio Normal 11/21/2024 0.9 - 28.9 [facility] Aldost SerPl-mCnc 11.0 ng/dL Normal 11/21/2024 - [facility] Renin Plas-cCnc 0.39 ng/mL/h Normal 11/21/2024 0.25 - 5.8 2 [facility] POC Glucose 226.0 mg/dL Above high normal 11/09/2024 65 - 99 [facility] Amylase Fld-cCnc 184.0 U/L Normal 10/13/2024 CCT Fluid Source PANCREATIC Normal 10/13/2024 [facility]CT Amylase Fld-cCnc 539.0 U/L Normal 10/07/2024 CCT Fluid Source PANCREATIC DRAIN Normal 10/07/2024 [facility]CT Amylase Fld-cCnc 947.0 U/L Normal 09/30/2024 CCT Fluid Source PANCREATIC FLUID LEAK Normal 09/30/2024 [facility]CT Amylase Fld-cCnc 1649.0 U/L Normal 09/23/2024 H [facility]CT Fluid Source PANCREATIC LEAK WITH DRAIN IN PLACE Normal 09/23/2024 [facility]CT CRP SerPl-mCnc 27.6 mg/L Above high normal 09/18/2024 - 8 [facility] Hct VFr Bld Auto 42.5 % Normal 09/18/2024 38.5 - 50 QU EST Basophils # Bld Auto 52.0 cells/uL Normal 09/18/2024 0 - 200 [facility] Neutrophils/leuk NFr Bld Auto 73.4 % Normal 09/18/2024 [facility] Eosinophil # Bld Auto 189.0 cells/uL Normal 09/18/2024 15 - 500 [facility] Neutrophils # Bld Auto 08026.0 cells/uL Above high normal 09/18/2024 1500 - 7800 [facility] MCH RBC Qn Auto 28.2 pg Normal 09/18/2024 27 - [address] Hgb Bld-mCnc 13.5 g/dL Normal 09/18/2024 13.2 - 17.1 [facility] Monocytes/leuk NFr Bld Auto 10.1 % Normal 09/18/2024 [facility] Lymphocytes/leuk NFr Bld Auto 15.1 % Normal 09/18/2024 [facility] RDW RBC Auto-Rto 13.3 % Normal 09/18/2024 11 - 15 [facility] EST Eosinophil/leuk NFr Bld Auto 1.1 % Normal 09/18/2024 [facility] Basophils/leuk NFr Bld Auto 0.3 % Normal 09/18/2024 [facility] RBC # Bld Auto 4.79 Million/uL Normal 09/18/2024 4.2 - 5. 8 [facility] WBC # Bld Auto 17.2 Thousand/uL Above high normal 09/18/2024 3.8 - 10.8 [facility] Lymphocytes # Bld Auto 2597.0 cells/uL Normal 09/18/2024 850 - 3900 [facility] PMV Bld Gary-Cris 10.8 fL Normal 09/18/2024 7.5 - 12.5 [facility] MCHC RBC Auto-mCnc 31.8 g/dL Below low normal 09/18/2024 32 - 36 [facility] Platelet # Bld Auto 529.0 Thousand/uL Above high normal 09/08 140 - 400 [facility] Monocytes # Bld Auto 1737.0 cells/uL Above high normal 09/18 200 - 950 [facility] MCV RBC Auto 88.7 fL Normal 09/18/2024 80 - 100 [facility] ALP SerPl-cCnc 101.0 U/L Normal 09/18/2024 35 - 144 [facility] Calcium SerPl-mCnc 9.4 mg/dL Normal 09/18/2024 8.6 - 10.3 [facility] Glucose SerPl-mCnc 122.0 mg/dL Normal 09/18/2024 65 - 139 [facility] Globulin Ser Calc-mCnc 2.7 g/dL (calc) Normal 09/18/2024 1.9 - 3.7 [facility] eGFRcr SerPlBld CKD-EPI 2020 88.0 mL/min/1.73m2 Normal 09/18/2024 - [facility] ALT SerPl-cCnc 21.0 U/L Normal 09/18/2024 9 - 46 [facility] Sodium SerPl-sCnc 136.0 mmol/L Normal 09/18/2024 135 - 14 6 [facility] Potassium SerPl-sCnc 4.9 mmol/L Normal 09/18/2024 3.5 - 5 .3 [facility] Albumin/Glob SerPl 1.5 (calc) Normal 09/18/2024 1 - 2.5 [facility] CO2 SerPl-sCnc 24.0 mmol/L Normal 09/18/2024 20 - 32 [facility] BUN SerPl-mCnc 19.0 mg/dL Normal 09/18/2024 7 - [address] BUN/Creat SerPl SEE NOTE: Normal 09/18/2024 6 - [address] AST SerPl-cCnc 13.0 U/L Normal 09/18/2024 10 - 35 [facility] T Albumin SerPl-mCnc 4.1 g/dL Normal 09/18/2024 3.6 - 5.1 [facility] Chloride SerPl-sCnc 102.0 mmol/L Normal 09/18/2024 98 - 1 10 [facility] Bilirub SerPl-mCnc 0.3 mg/dL Normal 09/18/2024 0.2 - 1.2 [facility] Prot SerPl-mCnc 6.8 g/dL Normal 09/18/2024 6.1 - 8.[address] Creat SerPl-mCnc 0.98 mg/dL Normal 09/18/2024 0.7 - 1.35 [facility] Magnesium SerPl-mCnc 2.0 mg/dL Normal 09/18/2024 1.5 - 2. 5 [facility] Amylase Fld-cCnc Specimen unsuitable for analysis--too viscous to process. Normal 09/17/2024 [facility] Fluid Source PANCREATIC FLD Normal 09/17/2024 H [facility] Amylase Fld-cCnc 3697.0 U/L Normal 09/09/2024 H [facility] Fluid Source PANCREATIC Normal 09/09/2024 [facility]CT Amylase Fld-cCnc Specimen unsuitable for analysis--too viscous to process. Normal 09/03/2024 [facility] Fluid Source PANCREATIC Normal 09/03/2024 [facility]CT Amylase Fld-cCnc 1208.0 U/L Normal 08/27/2024 H [facility] Fluid Source PANCREATIC FLUID Normal 08/27/2024 [facility] POC Glucose 120.0 mg/dL Above high normal 08/24/2024 65 - 99 [facility]CT Amylase Fld-cCnc Specimen unsuitable for analysis--too viscous to process. Normal 08/24/2024 [facility] Fluid Source PERITONEAL Normal 08/24/2024 [facility] POC Glucose 93.0 mg/dL Normal 08/24/2024 65 - 99 [facility]CT Chloride SerPl-sCnc 101.0 mmol/L Normal 08/24/2024 98 - 1 07 [facility] BUN/Creat SerPl 9.0 Ratio Below low normal 08/24/2024 10 - 2 5 [facility] Glucose SerPl-mCnc 87.0 mg/dL Normal 08/24/2024 65 - 99 [facility]CT Creat SerPl-mCnc 0.9 mg/dL Normal 08/24/2024 0.5 - 1.3 HH CCT Sodium SerPl-sCnc 138.0 mmol/L Normal 08/24/2024 136 - 14 5 [facility]CT Anion Gap Bld-sCnc 12.0 Normal 08/24/2024 7 - 17 [facility]CT Calcium SerPl-mCnc 9.0 mg/dL Normal 08/24/2024 8.7 - 10.5 H[facility]CT GFR/BSA.pred SerPlBld [id number] >90.0 Normal 08/24/2024 59 - HHCCT BUN SerPl-mCnc 8.0 mg/dL Normal 08/24/2024 8 - 21 [facility] T Potassium SerPl-sCnc 3.8 mmol/L Normal 08/24/2024 3.4 - 5 .3 [facility]CT CO2 SerPl-sCnc 25.0 mmol/L Normal 08/24/2024 22 - 33 HH CCT Phosphate SerPl-mCnc 2.9 mg/dL Normal 08/24/2024 2.7 - 4. 5 [facility]CT Magnesium SerPl-mCnc 2.0 mg/dL Normal 08/24/2024 1.6 - 2. 7 [facility] WBC num Bld Auto 12.3 Thou/uL Above high normal 08/24/2024 4 - 11 [facility]CT RDW RBC Auto-Rto 12.9 % Normal 08/24/2024 11.5 - 14.5 [facility]CT Hgb Bld-mCnc 11.8 g/dL Below low normal 08/24/2024 13 - 17.7 [facility]CT Eosinophil/leuk NFr Bld Auto 2.4 % Normal 08/24/2024 [facility]CT Lymphocytes/leuk NFr Bld Auto 11.5 % Normal 08/24/2024 [facility]CT nRBC/100 WBC Bld Auto-Rto 0.2 /100 WBC Above high normal 08/24/2024 0 - 0.1 H[facility]CT Monocytes num Bld Auto 1.68 Thou/uL Above high normal 08/24/2024 0.2 - 1.5 [facility]CT Monocytes/leuk NFr Bld Auto 13.7 % Normal 08/24/2024 [facility] nRBC num Bld Auto 0.02 Thou/uL Normal 08/24/2024 0 - 0.02 [facility]CT Basophils/leuk NFr Bld Auto 0.2 % Normal 08/24/2024 [facility] RBC num Bld Auto 4.01 Mil/uL Below low normal 08/24/2024 4.5 - 6.2 [facility]CT Neutrophils/leuk NFr Bld Auto 71.8 % Normal 08/24/2024 [facility] Platelet num Bld Auto 335.0 Thou/uL Normal 08/24/2024 150 - 450 [facility]CT MCH RBC Qn Auto 29.4 pg Normal 08/24/2024 27 - [address] MCHC RBC Auto-mCnc 32.0 g/dL Normal 08/24/2024 30 - 36 [facility]CT Basophils num Bld Auto 0.03 Thou/uL Normal 08/24/2024 0 - 0.2 HHCCT Hct VFr Bld Auto 36.9 % Below low normal 08/24/2024 39 - 54 H[facility]CT MCV RBC Auto 92.0 fL Normal 08/24/2024 80 - 100 [facility]CT PMV Bld Auto 10.7 fL Normal 08/24/2024 7.5 - 12.5 HHCCT Imm Granulocytes num Bld Auto 0.05 Thou/uL Normal 08/24/2024 0 - 0.1 H[facility]CT Neutrophils num Bld Auto 8.8 Thou/uL Above high normal 08/24/2024 2 - 7.5 H[facility]CT Lymphocytes num Bld Auto 1.41 Thou/uL Below low normal 08/24/2024 1.5 - 4.5 H[facility]CT Imm Granulocytes/leuk NFr Bld Auto 0.4 % Normal 08/24/2024 H[facility]CT Eosinophil num Bld Auto 0.29 Thou/uL Normal 08/24/2024 0 - 0.7 HHCCT POC Glucose 89.0 mg/dL Normal 08/24/2024 65 - 99 [facility] POC Glucose 87.0 mg/dL Normal 08/24/2024 65 - 99 [facility] POC Glucose 94.0 mg/dL Normal 08/24/2024 65 - 99 [facility] POC Glucose 167.0 mg/dL Above high normal 08/23/2024 65 - 99 [facility]CT POC Glucose 112.0 mg/dL Above high normal 08/23/2024 65 - 99 H[facility]CT GFR/BSA.pred SerPlBld [id number] >90.0 Normal 08/23/2024 59 - HHCCT CO2 SerPl-sCnc 26.0 mmol/L Normal 08/23/2024 22 - 33 HH CCT Chloride SerPl-sCnc 100.0 mmol/L Normal 08/23/2024 98 - 1 07 H[facility]CT BUN SerPl-mCnc 8.0 mg/dL Normal 08/23/2024 8 - 21 [facility] T Calcium SerPl-mCnc 8.9 mg/dL Normal 08/23/2024 8.7 - 10.5 H[facility]CT Sodium SerPl-sCnc 137.0 mmol/L Normal 08/23/2024 136 - 14 5 H[facility]CT Anion Gap Bld-sCnc 11.0 Normal 08/23/2024 7 - 17 [facility]CT BUN/Creat SerPl 9.0 Ratio Below low normal 08/23/2024 10 - 2 5 H[facility]CT Creat SerPl-mCnc 0.9 mg/dL Normal 08/23/2024 0.5 - 1.3 HH CCT Glucose SerPl-mCnc 94.0 mg/dL Normal 08/23/2024 65 - 99 H[facility]CT Potassium SerPl-sCnc 4.0 mmol/L Normal 08/23/2024 3.4 - 5 .3 HHCCT Phosphate SerPl-mCnc 2.3 mg/dL Below low normal 08/23/2024 2 .7 - 4.5 H[facility]CT Magnesium SerPl-mCnc 1.9 mg/dL Normal 08/23/2024 1.6 - 2. 7 H[facility]CT Imm Granulocytes num Bld Auto 0.08 Thou/uL Normal 08/23/2024 0 - 0.1 H[facility]CT Eosinophil/leuk NFr Bld Auto 1.0 % Normal 08/23/2024 [facility] RDW RBC Auto-Rto 13.0 % Normal 08/23/2024 11.5 - 14.5 [facility]CT Eosinophil num Bld Auto 0.15 Thou/uL Normal 08/23/2024 0 - 0.7 [facility] Platelet num Bld Auto 291.0 Thou/uL Normal 08/23/2024 150 - 450 [facility] RBC num Bld Auto 3.94 Mil/uL Below low normal 08/23/2024 4.5 - 6.2 H[facility]CT Neutrophils/leuk NFr Bld Auto 78.5 % Normal 08/23/2024 H[facility] WBC num Bld Auto 15.6 Thou/uL Above high normal 08/23/2024 4 - 11 [facility]CT Basophils num Bld Auto 0.03 Thou/uL Normal 08/23/2024 0 - 0.2 H[facility]CT MCH RBC Qn Auto 30.2 pg Normal 08/23/2024 27 - [address] MCV RBC Auto 94.0 fL Normal 08/23/2024 80 - 100 [facility]CT Basophils/leuk NFr Bld Auto 0.2 % Normal 08/23/2024 H[facility]CT Imm Granulocytes/leuk NFr Bld Auto 0.5 % Normal 08/23/2024 H[facility]CT MCHC RBC Auto-mCnc 32.2 g/dL Normal 08/23/2024 30 - 36 [facility]CT Lymphocytes/leuk NFr Bld Auto 8.5 % Normal 08/23/2024 HHCCT Hct VFr Bld Auto 37.0 % Below low normal 08/23/2024 39 - 54 [facility]CT Monocytes num Bld Auto 1.76 Thou/uL Above high normal 08/23/2024 0.2 - 1.5 [facility]CT Monocytes/leuk NFr Bld Auto 11.3 % Normal 08/23/2024 [facility]CT PMV Bld Auto 10.8 fL Normal 08/23/2024 7.5 - 12.5 H[facility]CT Neutrophils num Bld Auto 12.22 Thou/uL Above high normal 08/23/2024 2 - 7.5 H[facility]CT Lymphocytes num Bld Auto 1.32 Thou/uL Below low normal 08/23/2024 1.5 - 4.5 H[facility]CT Hgb Bld-mCnc 11.9 g/dL Below low normal 08/23/2024 13 - 17.7 HHCCT POC Glucose 103.0 mg/dL Above high normal 08/23/2024 65 - 99 [facility] POC Glucose 96.0 mg/dL Normal 08/23/2024 65 - 99 [facility] POC Glucose 105.0 mg/dL Above high normal 08/23/2024 65 - 99 [facility] POC Glucose 111.0 mg/dL Above high normal 08/22/2024 65 - 99 [facility]CT POC Glucose 103.0 mg/dL Above high normal 08/22/2024 65 - 99 [facility]CT Phosphate SerPl-mCnc 1.8 mg/dL Below low normal 08/22/2024 2 .7 - 4.5 H[facility]CT Glucose SerPl-mCnc 112.0 mg/dL Above high normal 08/22/2024 65 - 99 [facility]CT Anion Gap Bld-sCnc 8.0 Normal 08/22/2024 7 - 17 H[facility]CT Potassium SerPl-sCnc 3.7 mmol/L Normal 08/22/2024 3.4 - 5 .3 H[facility]CT BUN/Creat SerPl 8.0 Ratio Below low normal 08/22/2024 10 - 2 5 [facility]CT Creat SerPl-mCnc 0.9 mg/dL Normal 08/22/2024 0.5 - 1.3 HH CCT BUN SerPl-mCnc 7.0 mg/dL Below low normal 08/22/2024 8 - 21 H[facility]CT Calcium SerPl-mCnc 8.6 mg/dL Below low normal 08/22/2024 8.7 - 10.5 H[facility]CT Chloride SerPl-sCnc 102.0 mmol/L Normal 08/22/2024 98 - 1 07 H[facility]CT Sodium SerPl-sCnc 137.0 mmol/L Normal 08/22/2024 136 - 14 5 HHCCT GFR/BSA.pred SerPlBld SWO-[id number]-QnACdm >90.0 Normal 08/22/2024 59 - HHCCT CO2 SerPl-sCnc 27.0 mmol/L Normal 08/22/2024 22 - 33 HH CCT Magnesium SerPl-mCnc 1.8 mg/dL Normal 08/22/2024 1.6 - 2. 7 HHCCT POC Glucose 108.0 mg/dL Above high normal 08/22/2024 65 - 99 HHCCT Normochromic Bld Ql Smear Present Normal 08/22/2024 HHCCT Monocyte, Absolute 1.3 Thou/uL Normal 08/22/2024 0.2 - 1. 5 HHCCT Lymphocytes num Bld Auto 1.1 Thou/uL Below low normal 08/22/2024 1.5 - 4.5 HHCCT Monocytes/leuk NFr Bld Auto 6.0 % Normal 08/22/2024 H[facility]CT Lymphocytes/leuk NFr Bld Auto 5.0 % Normal 08/22/2024 HHCCT Normocytes Present Normal 08/22/2024 H[facility]CT Segmented Neutrophil 89.0 % Normal 08/22/2024 H[facility]CT Neutrophils num Bld Auto 19.4 Thou/uL Above high normal 08/22/2024 2 - 7.5 HHCCT MCHC RBC Auto-mCnc 31.6 g/dL Normal 08/22/2024 30 - 36 HHCCT Hct VFr Bld Auto 37.4 % Below low normal 08/22/2024 39 - 54 H[facility]CT WBC num Bld Auto 21.8 Thou/uL Above high normal 08/22/2024 4 - 11 HHCCT RDW RBC Auto-Rto 12.8 % Normal 08/22/2024 11.5 - 14.5 H[facility]CT RBC num Bld Auto 3.97 Mil/uL Below low normal 08/22/2024 4.5 - 6.2 H[facility]CT Platelet num Bld Auto 173.0 Thou/uL Normal 08/22/2024 150 - 450 HHT PMV Bld Auto 12.3 fL Normal 08/22/2024 7.5 - 12.5 HHCCT MCH RBC Qn Auto 29.7 pg Normal 08/22/2024 27 - [address] [facility] [address] Hgb Bld-mCnc 11.8 g/dL Below low normal 08/22/2024 13 - 17.7 HHT MCV RBC Auto 94.0 fL Normal 08/22/2024 80 - 100 [facility] POC Glucose 110.0 mg/dL Above high normal 08/22/2024 65 - 99 [facility] POC Glucose 108.0 mg/dL Above high normal 08/22/2024 65 - 99 [facility] HCoV OC43 RNA Nph Ql Non-probe PCR Not Detected Normal 08/22/2024 [facility] HCoV 229E RNA Nph Ql Non-probe PCR Not Detected Normal 08/22/2024 [facility] FLUBV RNA Nph Ql Non-probe PCR Not Detected Normal 08/22/2024 [facility] FLUAV RNA Nph Ql Non-probe PCR Not Detected Normal 08/22/2024 [facility] HPIV4 RNA Nph Ql Non-probe PCR Not Detected Normal 08/22/2024 [facility] B pert tox prom reg Nph Ql Non-probe PCR Not Detected Normal 08/22/2024 [facility] RSV RNA Nph Ql Non-probe PCR Not Detected Normal 08/22/2024 [facility] HPIV3 RNA Nph Ql Non-probe PCR Not Detected Normal 08/22/2024 [facility] HCoV NL63 RNA Nph Ql Non-probe PCR Not Detected Normal 08/22/2024 [facility] 2019-nCOV RNA Not Detected Normal 08/22/2024 [facility] HPIV2 RNA Nph Ql Non-probe PCR Not Detected Normal 08/22/2024 [facility] HPIV1 RNA Nph Ql Non-probe PCR Not Detected Normal 08/22/2024 [facility] Bordetella parapertussis Not Detected Normal 08/22/2024 [facility] HAdV DNA Nph Ql Non-probe PCR Not Detected Normal 08/22/2024 [facility] RV+EV RNA Nph Ql Non-probe PCR Not Detected Normal 08/22/2024 [facility] HCoV HKU1 RNA Nph Ql Non-probe PCR Not Detected Normal 08/22/2024 [facility] C pneum DNA Nph Ql Non-probe PCR Not Detected Normal 08/22/2024 [facility] M pneumo DNA Nph Ql Non-probe PCR Not Detected Normal 08/22/2024 [facility] hMPV RNA Nph Ql Non-probe PCR Not Detected Normal 08/22/2024 [facility] Neutrophils num Bld Auto 22.0 Thou/uL Above high normal 08/22/2024 2 - 7.5 [facility] Monocyte, Absolute 1.2 Thou/uL Normal 08/22/2024 0.2 - 1. 5 [facility] Segmented Neutrophil 90.0 % Normal 08/22/2024 [facility] Normocytes Present Normal 08/22/2024 [facility] Lymphocytes/leuk NFr Bld Auto 5.0 % Normal 08/22/2024 [facility] Lymphocytes num Bld Auto 1.2 Thou/uL Below low normal 08/22/2024 1.5 - 4.5 [facility]CT Normochromic Bld Ql Smear Present Normal 08/22/2024 [facility] Monocytes/leuk NFr Bld Auto 5.0 % Normal 08/22/2024 [facility] MCH RBC Qn Auto 29.6 pg Normal 08/22/2024 27 - [address] MCV RBC Auto 92.0 fL Normal 08/22/2024 80 - 100 [facility] RBC num Bld Auto 4.06 Mil/uL Below low normal 08/22/2024 4.5 - 6.2 H[facility]CT PMV Bld Auto 11.4 fL Normal 08/22/2024 7.5 - 12.5 [facility] Hgb Bld-mCnc 12.0 g/dL Below low normal 08/22/2024 13 - 17.7 HHCCT Hct VFr Bld Auto 37.5 % Below low normal 08/22/2024 39 - 54 [facility]CT MCHC RBC Auto-mCnc 32.0 g/dL Normal 08/22/2024 30 - 36 [facility] Platelet num Bld Auto 191.0 Thou/uL Normal 08/22/2024 150 - 450 [facility] RDW RBC Auto-Rto 12.8 % Normal 08/22/2024 11.5 - 14.5 HHCCT WBC num Bld Auto 24.4 Thou/uL Above high normal 08/22/2024 4 - 11 [facility]CT Phosphate SerPl-mCnc 1.4 mg/dL Below low normal 08/22/2024 2 .7 - 4.5 [facility]CT Glucose SerPl-mCnc 158.0 mg/dL Above high normal 08/22/2024 65 - 99 HHCCT Chloride SerPl-sCnc 102.0 mmol/L Normal 08/22/2024 98 - 1 07 HHCCT BUN/Creat SerPl 8.0 Ratio Below low normal 08/22/2024 10 - 2 5 HHCCT Calcium SerPl-mCnc 8.7 mg/dL Normal 08/22/2024 8.7 - 10.5 HHCCT BUN SerPl-mCnc 9.0 mg/dL Normal 08/22/2024 8 - 21 HH[facility] T Potassium SerPl-sCnc 3.9 mmol/L Normal 08/22/2024 3.4 - 5 .3 HHCCT Anion Gap Bld-sCnc 11.0 Normal 08/22/2024 7 - 17 HHCCT GFR/BSA.pred SerPlBld [id number] 76.0 Normal 08/22/2024 59 - HHCCT Sodium SerPl-sCnc 139.0 mmol/L Normal 08/22/2024 136 - 14 5 HHCCT Creat SerPl-mCnc 1.1 mg/dL Normal 08/22/2024 0.5 - 1.3 HH CCT CO2 SerPl-sCnc 26.0 mmol/L Normal 08/22/2024 22 - 33 HH CCT Magnesium SerPl-mCnc 1.8 mg/dL Normal 08/22/2024 1.6 - 2. 7 [facility]HC[facility] POC Glucose 136.0 mg/dL Above high normal 08/21/2024 65 - 99 HHCCT Phosphate SerPl-mCnc 2.0 mg/dL Below low normal 08/21/2024 2 .7 - 4.5 HHCCT POC Glucose 113.0 mg/dL Above high normal 08/21/2024 65 - 99 H[facility]CT POC Glucose 118.0 mg/dL Above high normal 08/21/2024 65 - 99 HHCCT Potassium SerPl-sCnc 4.5 mmol/L Normal 08/21/2024 3.4 - 5 .3 HHCCT Anion Gap Bld-sCnc 10.0 Normal 08/21/2024 7 - 17 HHCCT Glucose SerPl-mCnc 127.0 mg/dL Above high normal 08/21/2024 65 - 99 HHCCT BUN SerPl-mCnc 9.0 mg/dL Normal 08/21/2024 8 - 21 HH[facility] T Creat SerPl-mCnc 1.2 mg/dL Normal 08/21/2024 0.5 - 1.3 HH CCT Chloride SerPl-sCnc 100.0 mmol/L Normal 08/21/2024 98 - 1 07 HHCCT BUN/Creat SerPl 8.0 Ratio Below low normal 08/21/2024 10 - 2 5 HHCCT Sodium SerPl-sCnc 138.0 mmol/L Normal 08/21/2024 136 - 14 5 HHCCT CO2 SerPl-sCnc 28.0 mmol/L Normal 08/21/2024 22 - 33 HH CCT Calcium SerPl-mCnc 8.8 mg/dL Normal 08/21/2024 8.7 - 10.5 HHCCT GFR/BSA.pred SerPlBld [id number] 69.0 Normal 08/21/2024 59 - HHCCT Magnesium SerPl-mCnc 2.0 mg/dL Normal 08/21/2024 1.6 - 2. 7 H[facility]CT Phosphate SerPl-mCnc 1.8 mg/dL Below low normal 08/21/2024 2 .7 - 4.5 HHCCT Hct VFr Bld Auto 37.8 % Below low normal 08/21/2024 39 - 54 HHCCT Hgb Bld-mCnc 12.0 g/dL Below low normal 08/21/2024 13 - 17.7 HHCCT WBC num Bld Auto 26.8 Thou/uL Above high normal 08/21/2024 4 - 11 HHCCT PMV Bld Auto 11.2 fL Normal 08/21/2024 7.5 - 12.5 HHCCT MCHC RBC Auto-mCnc 31.7 g/dL Normal 08/21/2024 30 - 36 H[facility]CT Platelet num Bld Auto 187.0 Thou/uL Normal 08/21/2024 150 - 450 HHCCT MCV RBC Auto 94.0 fL Normal 08/21/2024 80 - 100 HHCCT RBC num Bld Auto 4.03 Mil/uL Below low normal 08/21/2024 4.5 - 6.2 HHCCT MCH RBC Qn Auto 29.8 pg Normal 08/21/2024 27 - [address] RDW RBC Auto-Rto 13.0 % Normal 08/21/2024 11.5 - 14.5 HHCCT POC Glucose 114.0 mg/dL Above high normal 08/21/2024 65 HHCCT POC Glucose 145.0 mg/dL Above high normal 08/21/2024 65 HHCCT POC Glucose 134.0 mg/dL Above high normal 08/20/2024 65 HHCCT POC Glucose 114.0 mg/dL Above high normal 08/20/2024 65 HHCCT POC Glucose 104.0 mg/dL Above high normal 08/20/2024 65 HHCCT POC Glucose 116.0 mg/dL Above high normal 08/20/2024 65 HHCCT POC Glucose 63.0 mg/dL Below low normal 08/20/2024 65 HHCCT POC Glucose 142.0 mg/dL Above high normal 08/20/2024 65 HHCCT Delta 1.0 Normal 08/20/2024 - HHCCT Troponin T SerPl-mCnc 12.0 ng/L Normal 08/20/2024 - HHCCT POC Glucose 198.0 mg/dL Above high normal 08/20/2024 65 HHCCT POC Glucose 200.0 mg/dL Above high normal 08/20/2024 65 HHCCT Troponin T SerPl-mCnc 13.0 ng/L Normal 08/20/2024 - HHCCT Delta NO CHANGE Normal 08/20/2024 - HHCCT POC Glucose 167.0 mg/dL Above high normal 08/20/2024 65 HHCCT POC Glucose 189.0 mg/dL Above high normal 08/20/2024 65 HHCCT POC Glucose 187.0 mg/dL Above high normal 08/20/2024 65 HHCCT Magnesium SerPl-mCnc 2.0 mg/dL Normal 08/20/2024 1.6 - 2. 7 HHCCT Phosphate SerPl-mCnc 2.9 mg/dL Normal 08/20/2024 2.7 - 4. 5 HHCCT Glucose SerPl-mCnc 196.0 mg/dL Above high normal 08/20/2024 65 - 99 HHCCT CO2 SerPl-sCnc 24.0 mmol/L Normal 08/20/2024 22 - 33 HH CCT Anion Gap Bld-sCnc 14.0 Normal 08/20/2024 7 - 17 HHCCT Chloride SerPl-sCnc 101.0 mmol/L Normal 08/20/2024 98 - 1 07 HHCCT GFR/BSA.pred SerPlBld [id number] 69.0 Normal 08/20/2024 59 - HHCCT Potassium SerPl-sCnc 3.6 mmol/L Normal 08/20/2024 3.4 - 5 .3 HHCCT Calcium SerPl-mCnc 8.4 mg/dL Below low normal 08/20/2024 8.7 - 10.5 HHCCT Sodium SerPl-sCnc 139.0 mmol/L Normal 08/20/2024 136 - 14 5 HHCCT BUN SerPl-mCnc 13.0 mg/dL Normal 08/20/2024 8 - [address] Creat SerPl-mCnc 1.2 mg/dL Normal 08/20/2024 0.5 - 1.3 HH CCT BUN/Creat SerPl 11.0 Ratio Normal 08/20/2024 10 - 25 HH CCT Platelet num Bld Auto 173.0 Thou/uL Normal 08/20/2024 150 - 450 HHCCT Hgb Bld-mCnc 11.9 g/dL Below low normal 08/20/2024 13 - 17.7 HHCCT RDW RBC Auto-Rto 13.0 % Normal 08/20/2024 11.5 - 14.5 HHCCT WBC num Bld Auto 16.1 Thou/uL Above high normal 08/20/2024 4 - 11 HHCCT PMV Bld Auto 10.8 fL Normal 08/20/2024 7.5 - 12.5 HHCCT MCHC RBC Auto-mCnc 31.6 g/dL Normal 08/20/2024 30 - 36 HHCCT MCH RBC Qn Auto 29.5 pg Normal 08/20/2024 27 - [address] MCV RBC Auto 94.0 fL Normal 08/20/2024 80 - 100 HHCCT RBC num Bld Auto 4.03 Mil/uL Below low normal 08/20/2024 4.5 - 6.2 HHCCT Hct VFr Bld Auto 37.7 % Below low normal 08/20/2024 39 - 54 HHCCT POC Glucose 164.0 mg/dL Above high normal 08/20/2024 65 - 99 HHCCT POC Glucose 121.0 mg/dL Above high normal 08/20/2024 65 - 99 HHCCT POC Glucose 74.0 mg/dL Normal 08/20/2024 65 - 99 HHCCT POC Glucose 135.0 mg/dL Above high normal 08/20/2024 65 - 99 HHCCT Magnesium SerPl-mCnc 1.9 mg/dL Normal 08/20/2024 1.6 - 2. 7 HHCCT POC Glucose 146.0 mg/dL Above high normal 08/20/2024 65 - 99 HHCCT POC Glucose 159.0 mg/dL Above high normal 08/20/2024 65 - 99 HHCCT POC Glucose 169.0 mg/dL Above high normal 08/20/2024 65 - 99 HHCCT POC Glucose 115.0 mg/dL Above high normal 08/20/2024 65 - 99 HHCCT POC Glucose 119.0 mg/dL Above high normal 08/20/2024 65 - 99 HHCCT POC Glucose 124.0 mg/dL Above high normal 08/19/2024 65 - 99 HHCCT Phosphate SerPl-mCnc 2.4 mg/dL Below low normal 08/20/2024 2 .7 - 4.5 HHCCT Magnesium SerPl-mCnc 1.8 mg/dL Normal 08/20/2024 1.6 - 2. 7 HHCCT Delta NO PREVIOUS RESULT Normal 08/20/2024 - 3 HHCCT Troponin T SerPl-mCnc 13.0 ng/L Normal 08/20/2024 - 23 HHCCT CK SerPl-cCnc 133.0 U/L Normal 08/20/2024 24 - 204 HHCCT Chloride SerPl-sCnc 104.0 mmol/L Normal 08/20/2024 98 - 1 07 HHCCT CO2 SerPl-sCnc 24.0 mmol/L Normal 08/20/2024 22 - 33 HH CCT Calcium SerPl-mCnc 8.8 mg/dL Normal 08/20/2024 8.7 - 10.5 HHCCT GFR/BSA.pred SerPlBld [id number] 69.0 Normal 08/20/2024 59 - HHCCT Sodium SerPl-sCnc 140.0 mmol/L Normal 08/20/2024 136 - 14 5 HHCCT BUN SerPl-mCnc 20.0 mg/dL Normal 08/20/2024 8 - [address] Potassium SerPl-sCnc 3.8 mmol/L Normal 08/20/2024 3.4 - 5 .3 HHCCT Anion Gap Bld-sCnc 12.0 Normal 08/20/2024 7 - 17 HHCCT Creat SerPl-mCnc 1.2 mg/dL Normal 08/20/2024 0.5 - 1.3 HH CCT BUN/Creat SerPl 17.0 Ratio Normal 08/20/2024 10 - 25 HH CCT Glucose SerPl-mCnc 119.0 mg/dL Above high normal 08/20/2024 65 - 99 HHCCT POC Glucose 109.0 mg/dL Above high normal 08/19/2024 65 - 99 HHCCT POC Glucose 132.0 mg/dL Above high normal 08/19/2024 65 - 99 HHCCT POC Glucose 155.0 mg/dL Above high normal 08/19/2024 65 - 99 HHCCT POC Glucose 187.0 mg/dL Above high normal 08/19/2024 65 - 99 HHCCT POC Glucose 164.0 mg/dL Above high normal 08/19/2024 65 - 99 HHCCT ISTAT Glucose 200.0 mg/dL Above high normal 08/20/2024 65 - 99 HHCCT ISTAT Glucose 202.0 mg/dL Above high normal 08/20/2024 65 - 99 HHCCT ISTAT Potassium 3.6 mmol/L Normal 08/20/2024 3.4 - 5.3 HH CCT ISTAT Ionized Calcium 1.2 mmol/L Normal 08/20/2024 1.17 - 1.33 HHCCT ISTAT Hematocrit 37.0 % Below low normal 08/20/2024 39 - 54 HHCCT ISTAT Arterial PCO2 46.4 mmHg Above high normal 08/20/2024 3 2 - 45 HHCCT ISTAT Arterial pH 7.31 Below low normal 08/20/2024 7.35 - 7.45 HHCCT ISTAT Sample Type Arterial Normal 08/20/2024 H HCCT ISTAT Base Excess -3 Normal 08/20/2024 H HCCT ISTAT Arterial HCO3 23.5 mmol/L Normal 08/20/2024 22 - 26 HHCCT ISTAT Arterial PO2 144.0 mmHg Above high normal 08/20/2024 7 5 - 95 HHCCT ISTAT O2 Saturation 99.0 % Above high normal 08/20/2024 9 4 - 97 HHCCT ISTAT Arterial Total CO2 25.0 mmol/L Normal 08/20/2024 22 - 28 HHCCT ISTAT Hemoglobin 12.6 gm/dL Below low normal 08/20/2024 13 - 17.7 HHCCT ISTAT Glucose 160.0 mg/dL Above high normal 08/20/2024 65 - 99 CCT ISTAT Sodium 138.0 mmol/L Normal 08/20/2024 136 - [address] [facility] [address] POC Glucose 145.0 mg/dL Above high normal 08/19/2024 65 - 99 CCT Est. average glucose Bld gHb Est-mCnc 131.0 mg/dL Normal 08/03/2024 HHCCT Hgb A1c MFr Bld 6.2 % Above high normal 08/03/2024 - 5.7 HHCCT aPTT PPP 32.0 seconds Normal 08/03/2024 25 - 36 HHCCT Anticoagulant Information not given Normal 08/03/2024 HHCCT Prothrombin time 9.9 seconds Below low normal 08/03/2024 10 - 13.5 HHCCT INR PPP 0.9 Normal 08/03/2024 HHCCT Anticoagulant Information not given Normal 08/03/2024 HHCCT POC Glucose 170.0 mg/dL Above high normal 08/02/2024 65 - 99 HHCCT POC Glucose 189.0 mg/dL Above high normal 07/25/2024 65 - 99 CCT ISTAT Venous FIO2 21.0 Normal 07/25/2024 H HCCT Wilmer Test NA Normal 07/25/2024 HHCCT ISTAT Venous TCO2 24.0 mmol/L Normal 07/25/2024 23 - 29 HHCCT MDRN Aware Yes Normal 07/25/2024 HHCCT Venous O2 Saturation, POC 90.0 % Above high normal 07/25/2024 60 - 75 HHCCT ISTAT Venous pH 7.33 Normal 07/25/2024 7.33 - 7.43 H HCCT ISTAT VENOUS PCO2 43.6 mmHg Normal 07/25/2024 35 - 50 H HCCT ISTAT Base Excess -3 Normal 07/25/2024 H HCCT Blood Gas Draw Site VENOUS Normal 07/25/2024 HHCCT ISTAT Venous PO2 63.0 mmHg Above high normal 07/25/2024 0 - 60 CCT ISTAT Sample Type VENOUS Normal 07/25/2024 H HCCT ISTAT Venous HCO3 23.0 mmol/L Normal 07/25/2024 23 - 28 HHCCT Delivery System ROOM AIR Normal 07/25/[address] ISTAT Potassium 4.1 mmol/L Normal 07/25/2024 3.4 - 5.3 HH CCT ISTAT Sodium 137.0 mmol/L Normal 07/25/2024 136 - [address] B-OH-Butyr SerPl-sCnc <0.05 mmol/L Normal 07/25/2024 - 0.28 HHCCT Bilirub Direct SerPl-mCnc 0.2 mg/dL Normal 07/25/2024 0 - 0.2 HHCCT Globulin Ser Calc-mCnc 2.5 g/dL Normal 07/25/2024 1.5 - 3.9 HHCCT ALT SerPl-cCnc 28.0 U/L Normal 07/25/2024 10 - 55 HHCC T Bilirub SerPl-mCnc 0.3 mg/dL Normal 07/25/2024 0.2 - 1 HHCCT AST SerPl-cCnc 21.0 U/L Normal 07/25/2024 10 - 55 HHCC T Prot SerPl-mCnc 6.4 g/dL Normal 07/25/2024 6.3 - 8.[address] Albumin SerPl-mCnc 3.9 g/dL Normal 07/25/2024 3.4 - 4.8 HHCCT ALP SerPl-cCnc 98.0 U/L Normal 07/25/2024 45 - 128 [facility]CC T Albumin/Glob SerPl 1.6 Ratio Normal 07/25/2024 1 - 3 HHCCT Glucose SerPl-mCnc 339.0 mg/dL Above high normal 07/25/2024 65 - 99 HHCCT Sodium SerPl-sCnc 135.0 mmol/L Below low normal 07/25/2024 1 36 - 145 HHCCT GFR/BSA.pred SerPlBld DSZ-DIH-EiQTup 86.0 Normal 07/25/2024 59 - HHCCT Potassium SerPl-sCnc 4.2 mmol/L Normal 07/25/2024 3.4 - 5 .3 HHCCT CO2 SerPl-sCnc 25.0 mmol/L Normal 07/25/2024 22 - 33 HH CCT BUN/Creat SerPl 23.0 Ratio Normal 07/25/2024 10 - 25 HH CCT Creat SerPl-mCnc 1.0 mg/dL Normal 07/25/2024 0.5 - 1.3 HH CCT BUN SerPl-mCnc 23.0 mg/dL Above high normal 07/25/2024 8 - 2 1 HHCCT Chloride SerPl-sCnc 103.0 mmol/L Normal 07/25/2024 98 - 1 07 HHCCT Anion Gap Bld-sCnc 7.0 Normal 07/25/2024 7 - 17 HHCCT Calcium SerPl-mCnc 8.9 mg/dL Normal 07/25/2024 8.7 - 10.5 HHCCT MCH RBC Qn Auto 30.3 pg Normal 07/25/2024 27 - [address] Imm Granulocytes/leuk NFr Bld Auto 1.5 % Normal 07/25/2024 HHCCT Hct VFr Bld Auto 34.9 % Below low normal 07/25/2024 39 - 54 HHCCT Neutrophils num Bld Auto 6.81 Thou/uL Normal 07/25/2024 2 - 7.5 HHCCT Lymphocytes/leuk NFr Bld Auto 16.7 % Normal 07/25/2024 HHCCT RDW RBC Auto-Rto 14.4 % Normal 07/25/2024 11.5 - 14.5 HHCCT PMV Bld Auto 9.8 fL Normal 07/25/2024 7.5 - 12.5 HHCCT Lymphocytes num Bld Auto 1.59 Thou/uL Normal 07/25/2024 1.5 - 4.5 HHCCT WBC num Bld Auto 9.5 Thou/uL Normal 07/25/2024 4 - 11 HHCCT Hgb Bld-mCnc 11.4 g/dL Below low normal 07/25/2024 13 - 17.7 HHCCT Eosinophil/leuk NFr Bld Auto 2.0 % Normal 07/25/2024 HHCCT Monocytes num Bld Auto 0.77 Thou/uL Normal 07/25/2024 0.2 - 1.5 HHCCT Neutrophils/leuk NFr Bld Auto 71.5 % Normal 07/25/2024 HHCCT Imm Granulocytes num Bld Auto 0.14 Thou/uL Above high normal 07/25/2024 0 - 0.1 HHCCT Platelet num Bld Auto 233.0 Thou/uL Normal 07/25/2024 150 - 450 HHCCT Monocytes/leuk NFr Bld Auto 8.1 % Normal 07/25/2024 HHCCT Basophils num Bld Auto 0.02 Thou/uL Normal 07/25/2024 0 - 0.2 HHCCT RBC num Bld Auto 3.76 Mil/uL Below low normal 07/25/2024 4.5 - 6.2 HHCCT Basophils/leuk NFr Bld Auto 0.2 % Normal 07/25/2024 HHCCT MCV RBC Auto 93.0 fL Normal 07/25/2024 80 - 100 HHCCT MCHC RBC Auto-mCnc 32.7 g/dL Normal 07/25/2024 30 - 36 HHCCT Eosinophil num Bld Auto 0.19 Thou/uL Normal 07/25/2024 0 - 0.7 HHCCT POC Glucose 380.0 mg/dL Above high normal 07/26/2024 65 - 99 HHCCT POC Glucose 124.0 mg/dL Above high normal 07/14/2024 65 - 99 HHCCT POC Glucose 127.0 mg/dL Above high normal 07/14/2024 65 - 99 HHCCT POC Glucose 132.0 mg/dL Above high normal 07/14/2024 65 - 99 HHCCT Magnesium SerPl-mCnc 2.0 mg/dL Normal 07/14/2024 1.6 - 2. 7 HHCCT Chloride SerPl-sCnc 108.0 mmol/L Above high normal 98 - 107 HHCCT CO2 SerPl-sCnc 25.0 mmol/L Normal 07/14/2024 22 - 33 HH CCT Anion Gap Bld-sCnc 7.0 Normal 07/14/2024 7 - 17 HHCCT Potassium SerPl-sCnc 4.1 mmol/L Normal 07/14/2024 3.4 - 5 .3 HHCCT BUN/Creat SerPl 16.0 Ratio Normal 07/14/2024 10 - 25 HH CCT BUN SerPl-mCnc 18.0 mg/dL Normal 07/14/2024 8 - [address] Calcium SerPl-mCnc 8.1 mg/dL Below low normal 07/14/2024 8.7 - 10.5 HHCCT Creat SerPl-mCnc 1.1 mg/dL Normal 07/14/2024 0.5 - 1.3 HH CCT Sodium SerPl-sCnc 140.0 mmol/L Normal 07/14/2024 136 - 14 5 HHCCT Glucose SerPl-mCnc 118.0 mg/dL Above high normal 07/14/2024 65 - 99 HHCCT GFR/BSA.pred SerPlBld [id number] 76.0 Normal 07/14/2024 59 - HHCCT Phosphate SerPl-mCnc 2.3 mg/dL Below low normal 07/14/2024 2 .7 - 4.5 HHCCT Lactate SerPl-sCnc 1.1 mmol/L Normal 07/14/2024 0.5 - 1.9 HHCCT Hct VFr Bld Auto 26.7 % Below low normal 07/14/2024 39 - 54 HHCCT Hgb Bld-mCnc 8.9 g/dL Below low normal 07/14/2024 13 - 17.7 HHCCT POC Glucose 119.0 mg/dL Above high normal 07/14/2024 65 - 99 HHCCT POC Glucose 114.0 mg/dL Above high normal 07/13/2024 65 - 99 HHCCT CgA SerPl-mCnc 253.0 ng/mL Normal 07/24/2024 - HH CCT Gastrin SerPl-mCnc 52.0 pg/mL Normal 07/16/2024 - HHCCT Globulin Ser Calc-mCnc 1.7 g/dL Normal 07/13/2024 1.5 - 3.9 HHCCT Albumin/Glob SerPl 2.1 Ratio Normal 07/13/2024 1 - 3 HHCCT Bilirub SerPl-mCnc 0.3 mg/dL Normal 07/13/2024 0.2 - 1 HHCCT ALP SerPl-cCnc 63.0 U/L Normal 07/13/2024 45 - 128 HHCC T Bilirub Direct SerPl-mCnc <0.2 mg/dL Normal 07/13/2024 0 - 0.2 HHCCT ALT SerPl-cCnc 22.0 U/L Normal 07/13/2024 10 - 55 HHCC T Prot SerPl-mCnc 5.2 g/dL Below low normal 07/13/2024 6.3 - 8.3 HHCCT AST SerPl-cCnc 27.0 U/L Normal 07/13/2024 10 - 55 HHCC T Albumin SerPl-mCnc 3.5 g/dL Normal 07/13/2024 3.4 - 4.8 HHCCT Hgb Bld-mCnc 9.5 g/dL Below low normal 07/13/2024 13 - 17.7 HHCCT Hct VFr Bld Auto 28.5 % Below low normal 07/13/2024 39 - 54 HHCCT POC Glucose 129.0 mg/dL Above high normal 07/13/2024 65 - 99 HHCCT Creat SerPl-mCnc 1.3 mg/dL Normal 07/13/2024 0.5 - 1.3 HH CCT BUN/Creat SerPl 19.0 Ratio Normal 07/13/2024 10 - 25 HH CCT Sodium SerPl-sCnc 138.0 mmol/L Normal 07/13/2024 136 - 14 5 HHCCT Glucose SerPl-mCnc 129.0 mg/dL Above high normal 07/13/2024 65 - 99 HHCCT CO2 SerPl-sCnc 23.0 mmol/L Normal 07/13/2024 22 - 33 HH CCT Anion Gap Bld-sCnc 11.0 Normal 07/13/2024 7 - 17 HHCCT BUN SerPl-mCnc 25.0 mg/dL Above high normal 07/13/2024 8 - 2 1 HHCCT Chloride SerPl-sCnc 104.0 mmol/L Normal 07/13/2024 98 - 1 07 HHCCT Calcium SerPl-mCnc 8.2 mg/dL Below low normal 07/13/2024 8.7 - 10.5 HHCCT Potassium SerPl-sCnc 4.4 mmol/L Normal 07/13/2024 3.4 - 5 .3 HHCCT GFR/BSA.pred SerPlBld [id number] 63.0 Normal 07/13/2024 59 - HHCCT Phosphate SerPl-mCnc 3.1 mg/dL Normal 07/13/2024 2.7 - 4. 5 HHCCT Magnesium SerPl-mCnc 1.9 mg/dL Normal 07/13/2024 1.6 - 2. 7 HHCCT Hct VFr Bld Auto 26.6 % Below low normal 07/13/2024 39 - 54 HHCCT Hgb Bld-mCnc 8.7 g/dL Below low normal 07/13/2024 13 - 17.7 HHCCT Ca-I SerPl-mCnc 1.09 mmol/L Below low normal 07/13/2024 1.17 - 1.33 HHCCT POC Glucose 120.0 mg/dL Above high normal 07/13/2024 65 - 99 HHCCT POC Glucose 153.0 mg/dL Above high normal 07/13/2024 65 - 99 HHCCT POC Glucose 169.0 mg/dL Above high normal 07/12/2024 65 - 99 HHCCT Lactate SerPl-sCnc 3.7 mmol/L Critically high 07/12/2024 0.5 - 1.9 HHCCT Creat SerPl-mCnc 1.4 mg/dL Above high normal 07/12/2024 0.5 - 1.3 HHCCT BUN/Creat SerPl 17.0 Ratio Normal 07/12/2024 10 - 25 HH CCT BUN SerPl-mCnc 24.0 mg/dL Above high normal 07/12/2024 8 - 2 1 HHCCT Calcium SerPl-mCnc 8.5 mg/dL Below low normal 07/12/2024 8.7 - 10.5 HHCCT Anion Gap Bld-sCnc 13.0 Normal 07/12/2024 7 - 17 HHCCT Chloride SerPl-sCnc 104.0 mmol/L Normal 07/12/2024 98 - 1 07 HHCCT GFR/BSA.pred SerPlBld [id number] 57.0 Below low normal 07/12/2024 59 - HHCCT CO2 SerPl-sCnc 21.0 mmol/L Below low normal 07/12/2024 22 - 33 HHCCT Sodium SerPl-sCnc 138.0 mmol/L Normal 07/12/2024 136 - 14 5 HHCCT Potassium SerPl-sCnc 4.1 mmol/L Normal 07/12/2024 3.4 - 5 .3 HHCCT Glucose SerPl-mCnc 164.0 mg/dL Above high normal 07/12/2024 65 - 99 HHCCT Hct VFr Bld Auto 30.9 % Below low normal 07/12/2024 39 - 54 HHCCT Hgb Bld-mCnc 10.2 g/dL Below low normal 07/12/2024 13 - 17.7 HHCCT Lactate SerPl-sCnc 4.7 mmol/L Critically high 07/12/2024 0.5 - 1.9 HHCCT Prothrombin time 12.9 seconds Normal 07/12/2024 10 - 13.5 HHCCT INR PPP 1.1 Normal 07/12/2024 HHCCT Anticoagulant NO ANTI COAGULANT MEDS Normal 07/12/2024 HHCCT STONE WEIGHT 0.19 g Normal 07/18/2024 [facility] COMPONENT 1 REPORT Normal 07/18/2024 [facility] Phosphate SerPl-mCnc 3.5 mg/dL Normal 07/12/2024 2.7 - 4. 5 [facility] Magnesium SerPl-mCnc 1.5 mg/dL Below low normal 07/12/2024 1 .6 - 2.7 [facility] Calcium SerPl-mCnc 7.7 mg/dL Below low normal 07/12/2024 8.7 - 10.5 [facility] BUN/Creat SerPl 14.0 Ratio Normal 07/12/2024 10 - 25 HH CCT Sodium SerPl-sCnc 137.0 mmol/L Normal 07/12/2024 136 - 14 5 [facility] Anion Gap Bld-sCnc 11.0 Normal 07/12/2024 7 - 17 [facility] Chloride SerPl-sCnc 104.0 mmol/L Normal 07/12/2024 98 - 1 07 [facility] GFR/BSA.pred SerPlBld DCK-JHK-ZnHHvq 57.0 Below low normal 07/12/2024 59 - H[facility]CT Potassium SerPl-sCnc 4.9 mmol/L Normal 07/12/2024 3.4 - 5 .3 [facility] CO2 SerPl-sCnc 22.0 mmol/L Normal 07/12/2024 22 - 33 HH CCT BUN SerPl-mCnc 20.0 mg/dL Normal 07/12/2024 8 - [address] Creat SerPl-mCnc 1.4 mg/dL Above high normal 07/12/2024 0.5 - 1.3 [facility] Glucose SerPl-mCnc 296.0 mg/dL Above high normal 07/12/2024 65 - 99 [facility] RBC num Bld Auto 3.78 Mil/uL Below low normal 07/12/2024 4.5 - 6.2 H[facility]CT Hct VFr Bld Auto 34.7 % Below low normal 07/12/2024 39 - 54 [facility] MCHC RBC Auto-mCnc 32.9 g/dL Normal 07/12/2024 30 - 36 [facility] Platelet num Bld Auto 197.0 Thou/uL Normal 07/12/2024 150 - 450 [facility] WBC num Bld Auto 18.7 Thou/uL Above high normal 07/12/2024 4 - 11 [facility] Hgb Bld-mCnc 11.4 g/dL Below low normal 07/12/2024 13 - 17.7 [facility]CT MCH RBC Qn Auto 30.2 pg Normal 07/12/2024 27 - [address] RDW RBC Auto-Rto 13.6 % Normal 07/12/2024 11.5 - 14.5 [facility] MCV RBC Auto 92.0 fL Normal 07/12/2024 80 - 100 [facility] PMV Bld Auto 10.6 fL Normal 07/12/2024 7.5 - 12.5 [facility] Ca-I SerPl-mCnc 1.03 mmol/L Below low normal 07/12/2024 1.17 - 1.33 [facility] POC Glucose 261.0 mg/dL Above high normal 07/12/2024 65 - 99 CCT ISTAT Glucose 164.0 mg/dL Above high normal 07/13/2024 65 - 99 CCT POC Glucose 111.0 mg/dL Above high normal 07/12/2024 65 - 99 CCT POC Glucose 139.0 mg/dL Above high normal 06/04/2024 65 - 99 [facility] History of Medication Use Medication Directions Dispensed Refills Start Date End Date Status gadobutrol (GADAVIST) injection 20 mL 20 mL, Intravenous, Once in imaging, contrast, Starting on Fri06/15/25 at 1234, For 1 dose, Radiology Appointment 2024 completed oxyCODONE (ROXICODONE) 5 MG immediate release tablet Take 1 tablet (5 mg total) by mouth Every 4 (four) to 6 (six) hours as needed for severe pain. Max Daily Amount: 30 mg active HYDROcodone-acetaminop hen (NORCO) 5-325 mg per tablet Take 1 tablet by mouth 4 times daily (every 6 hours) as needed for severe pain (pain). Max Daily Amount: 4 tablets active gabapentin (NEURONTIN) 300 mg capsule Take 1 capsule (300 mg total) by mouth at bedtime. active gabapentin (NEURONTIN) 300 mg capsule Take 1 capsule (300 mg total) by mouth at bedtime. active meloxicam (MOBIC) 15 MG tablet Take 1 tablet (15 mg total) by mouth daily. active methocarbamol (ROBAXIN) 750 MG tablet Take 1 tablet (750 mg total) by mouth 4 (four) times a day. active insulin degludec (TRESIBA FLEXTOUCH) 100 UNIT/ML prefilled pen injection Inject 28 Units under the skin daily. active iohexol (OMNIPAQUE) 350 mg/mL injection 100 mL 100 mL, Intravenous, Once in imaging, contrast, Starting on Fri02/14/25 at 0810, For 1 dose, Radiology Appointment 025 2024 completed acetaminophen (Tylenol) tablet 975 mg 975 mg, oral, Once, On Fri01/31/25 at 1853, For 1 dose 2024 completed albuterol (PROVENTIL HFA; VENTOLIN HFA) 108 (90 Base) MCG/ACT inhaler Inhale 2 puffs 4 times daily (every 6 hours) as needed for wheezing. active albuterol HFA (PROAIR HFA ; PROVENTIL HFA ; VENTOLIN HFA) 90 mcg/actuation inhaler Inhale 2 puffs by mouth every 6 hours as needed. active albuterol HFA (PROAIR HFA ; PROVENTIL HFA ; VENTOLIN HFA) 90 mcg/actuation inhaler Inhale 2 puffs by mouth every 6 hours as needed. active fluticasone-salmeterol (ADVAIR) 500-50 mcg/inh diskus inhaler Inhale 1 puff 2 (two) times a day. active benzonatate (TESSALON) 200 mg capsule Take 1 capsule (200 mg total) by mouth 3 times daily as needed. active benzonatate (TESSALON) 200 mg capsule Take 1 capsule (200 mg total) by mouth 3 times daily as needed. active benzonatate (TESSALON) 200 MG capsule Take 1 capsule (200 mg total) by mouth 3 (three) times a day as needed for cough. active predniSONE (DELTASONE) 10 mg tablet Take 4 tablets (40 mg total) by mouth daily. active predniSONE (DELTASONE) 10 mg tablet Take 4 tablets (40 mg total) by mouth daily. active predniSONE (DELTASONE) 10 MG tablet Take 4 tablets (40 mg total) by mouth daily. With food. active betamethasone acet,sod phos (CELESTONE) 6 mg/mL injection 6 mg 6 mg, intra-articular, One-time injection, 1 dose, Starting on Fri12/28/24 at 1130, Until Fri12/28/24 at 1130 2024 completed BUPivacaine HCl (MARCAINE) 0.5 % (5 mg/mL) injection 2 mL 2024 completed ibuprofen 800 mg tablet take 1 tablet every 6 to 8 hours as needed for pain active ciclopirox (LOPROX) 0.77 % cream Gently massage into affected areas and surrounding skin twice a day. active insulin aspart, w/Niacinamide, (FIASP FLEXTOUCH) 100 UNIT/ML prefilled pen injection Inject 18-22 Units under the skin 3 (three) times a day before meals. active mupirocin (BACTROBAN) 2 % ointment apply to affected area twice a day active Mupirocin 2% External Ointment Mupirocin 2% External Ointment QTY: 22 gram Days: 30 Refills: 0 Written: 12/02/24 Patient Instructions: apply to affected area BID active Tamsulosin HCl 0.4 MG Oral Capsule Tamsulosin HCl 0.4 MG Oral Capsule QTY: 180 capsule Days: 90 Refills: 3 Written: 12/02/24 Patient Instructions: Take 2 pillls once a day active ipratropium (ATROVENT) 0.06 % nasal spray SPRAY 2 SPRAYS INTO INTO EACH NOSTRIL 3 TIMES A DAY NEEDED FOR RHINITIS active Alcohol Prep Pads pads, medicated See admin instructions. active alcohol swabs pads, medicated See administration instructions. active alcohol swabs pads, medicated See administration instructions. active insulin degludec (TRESIBA FlexTouch) 100 unit/mL (3 mL) injection pen Inject 28 Units under the skin daily. active insulin degludec (TRESIBA FlexTouch) 100 unit/mL (3 mL) injection pen Inject 28 Units under the skin daily. active insulin degludec (TRESIBA FLEXTOUCH) 100 UNIT/ML prefilled pen injection Inject 18 Units under the skin daily. active Tresiba FlexTouch 100 UNIT/ML Subcutaneous Solution Pen-injector Tresiba FlexTouch 100 UNIT/ML Subcutaneous Solution Pen-injector QTY: 15 Days: 90 Refills: 0 Written: 11/09/24 Patient Instructions: 22 units with meals active Tresiba FlexTouch U-100 100 unit/mL (3 mL) insulin pen Tresiba FlexTouch 100 UNIT/ML Subcutaneous Solution Pen-injector QTY: 15 Days: 90 Refills: 0 Written: 11/09/24 Patient Instructions: 22 units with meals active ipratropium (ATROVENT) 0.06 % nasal spray 2 sprays into each nostril 3 (three) times a day as needed for rhinitis. active ipratropium (ATROVENT) 42 mcg (0.06 %) nasal spray SPRAY 2 SPRAYS INTO INTO EACH NOSTRIL 3 TIMES A DAY NEEDED FOR RHINITIS active ipratropium (ATROVENT) 42 mcg (0.06 %) nasal spray SPRAY 2 SPRAYS INTO INTO EACH NOSTRIL 3 TIMES A DAY NEEDED FOR RHINITIS active ipratropium (ATROVENT) 42 mcg (0.06 %) nasal spray SPRAY 2 SPRAYS INTO INTO EACH NOSTRIL 3 TIMES A DAY NEEDED FOR RHINITIS active pantoprazole (PROTONIX) 40 mg EC tablet Take 40 mg by mouth in the morning. active pantoprazole (PROTONIX) 40 mg EC tablet Take 1 tablet (40 mg total) by mouth 1 (one) time each day. active pantoprazole (PROTONIX) 40 mg EC tablet Take 1 tablet (40 mg total) by mouth 1 (one) time each day. active famotidine (PEPCID) 20 MG tablet Take 1 tablet (20 mg total) by mouth 2 (two) times a day. active hydrocortisone-acetic acid (VOSOL-HC) otic solution 5 drops tid to both ears for two weeks active mometasone (ELOCON) 0.1 % ointment Apply topically daily. active mometasone (ELOCON) 0.1 % ointment Apply topically daily. active mometasone (ELOCON) 0.1 % ointment Apply 1 Application topically 1 (one) time each day. active mometasone (ELOCON) 0.1 % ointment Apply 1 Application topically 1 (one) time each day. active Fiasp FlexTouch 100 UNIT/ML Subcutaneous Solution Pen-injector Fiasp FlexTouch 100 UNIT/ML Subcutaneous Solution Pen-injector QTY: 30 Days: 84 Refills: 0 Written: 10/11/24 Patient Instructions: 22 units with meals active levoFLOXacin (LEVAQUIN) 750 MG tablet Take 1 tablet (750 mg total) by mouth daily. 2024 active levoFLOXacin (LEVAQUIN) 750 mg tablet Take 750 mg by mouth in the morning. active insulin glargine-yfgn 100 unit/mL (3 mL) insulin pen INJECT 18 UNITS SUBCUTANEOUSLY DAILY active insulin glargine (LANtus/SEMGLEE SOLOSTAR) 100 units/mL prefilled pen injection Inject 18 Units under the skin daily. 2024 active insulin aspart, w/Niacinamide, (FIASP FLEXTOUCH) 100 UNIT/ML prefilled pen injection Inject 12 Units under the skin 3 (three) times a day before meals. active methocarbamol (ROBAXIN) 500 MG tablet Take 1 tablet (500 mg total) by mouth 4 (four) times a day. 2024 active famotidine (PEPCID) 40 mg tablet Take 40 mg by mouth nightly. active Famotidine 40 MG Oral Tablet Famotidine 40 MG Oral Tablet QTY: 90 tablet Days: 90 Refills: 3 Written: 09/03/24 Patient Instructions: TAKE 1 TABLET BY MOUTH EVERY DAY active methocarbamoL (ROBAXIN) 500 mg tablet Take 500 mg by mouth in the morning and 500 mg at noon and 500 mg in the evening and 500 mg before bedtime. active gabapentin (NEURONTIN) 300 mg capsule TAKE 1 CAPSULE BY MOUTH EVERY 8 HOURS AROUND THE CLOCK. active PANTOprazole (PROTONIX) 40 MG EC tablet TAKE 1 TABLET BY MOUTH EVERY DAY 2024 active enoxaparin (LOVENOX) 40 MG/0.4ML injection Inject 0.4 mL (40 mg total) under the skin every 24 hours around the clock. active polyethylene glycol (miraLAx) 17 g packet Take 1 packet (17 g total) by mouth daily as needed for constipation. Can take as needed for constipation. Hold for loose stool. 2024 active gabapentin (NEURONTIN) 300 MG capsule Take 1 capsule (300 mg total) by mouth every 8 (eight) hours around the clock. 2024 active Enoxaparin Sodium 40 MG/0.4ML Injection Solution Prefilled Syringe Enoxaparin Sodium 40 MG/0.4ML Injection Solution Prefilled Syringe QTY: 8.4 Days: 21 Refills: 0 Written: 08/24/24 Patient Instructions: active HYDROmorphone (DILAUDID) 2 mg tablet TAKE 1 TABLET BY MOUTH EVERY 4 HOURS NEEDED FOR MODERATE TO SEVERE PAIN MAX DAILY:12 MG active Lantus SoloStar 100 UNIT/ML Subcutaneous Solution Pen-injector Lantus SoloStar 100 UNIT/ML Subcutaneous Solution Pen-injector QTY: 15 Days: 63 Refills: 0 Written: 08/26/24 Patient Instructions: 14 units in am SC 2024 completed insulin glargine (LANtus/SEMGLEE SOLOSTAR) 100 units/mL prefilled pen injection Inject 24 Units under the skin daily. 2024 active insulin lispro (HumaLOG KWIKPEN) 100 UNIT/ML prefilled pen injection Inject 6 Units under the skin 3 (three) times a day before meals. HOLD if not eating. Plus 2-4 units based on blood sugars. 2024 active Alcohol Swabs 70 % Pads Use as directed. active BD Jackie 2nd Gen Pen Needle 32 gauge x 5/32 needle active Fiasp FlexTouch U-100 Insulin 100 unit/mL (3 mL) insulin pen Fiasp FlexTouch 100 UNIT/ML Subcutaneous Solution Pen-injector QTY: 30 Days: 84 Refills: 0 Written: 10/11/24 Patient Instructions: 22 units with meals active Lantus Solostar U-100 Insulin 100 unit/mL (3 mL) insulin pen active NovoLOG FlexPen 100 UNIT/ML Subcutaneous Solution Pen-injector NovoLOG FlexPen 100 UNIT/ML Subcutaneous Solution Pen-injector QTY: 15 Days: 30 Refills: 0 Written: 08/23/24 Patient Instructions: 6 units with meals active NovoLOG Flexpen U-100 Insulin 100 unit/mL (3 mL) injection pen active NovoLOG Flexpen U-100 Insulin 100 unit/mL (3 mL) injection pen active NovoLOG Flexpen U-100 Insulin 100 unit/mL (3 mL) insulin pen active phenazopyridine (PYRIDIUM) 200 MG tablet Take 1 tablet (200 mg total) by mouth 3 (three) times a day as needed for bladder spasms. 2024 aborted oxybutynin (DITROPAN-XL) 5 MG 24 hr tablet Take 1 tablet (5 mg total) by mouth daily. 2023 active tamsulosin (FLOMAX) 0.4 MG capsule Take 1 capsule (0.4 mg total) by mouth daily. 2023 active oxybutynin XL (DITROPAN-XL) 5 mg 24 hr tablet take 1 tablet (5 mg total) by mouth daily. active phenazopyridine (PYRIDIUM) 200 mg tablet Take 200 mg by mouth. active phenazopyridine (PYRIDIUM) 200 MG tablet Take 1 tablet (200 mg total) by mouth 3 (three) times a day as needed for bladder spasms. active tamsulosin (FLOMAX) 0.4 mg 24 hr capsule Take 1 capsule (0.4 mg total) by mouth daily. active tamsulosin (FLOMAX) 0.4 mg 24 hr capsule Take 1 capsule (0.4 mg total) by mouth daily. active tamsulosin (FLOMAX) capsule Tamsulosin HCl 0.4 MG Oral Capsule QTY: 180 capsule Days: 90 Refills: 3 Written: 12/02/24 Patient Instructions: Take 2 pillls once a day active glipiZIDE ER 5 MG Oral Tablet Extended Release 24 Hour glipiZIDE ER 5 MG Oral Tablet Extended Release 24 Hour QTY: 90 tablet Days: 90 Refills: 3 Written: 07/28/24 Patient Instructions: once a day 2023 aborted Jysrmior-Tvjtxcqtt-QM 1% Otic Solution Ygkyqvet-Jfbwpieba-MD 1% Otic Solution QTY: 10 mL Days: 7 Refills: 0 Written: 07/28/24 Patient Instructions: as directed 2gtts affected ear tid x 1 week 2023 completed glipiZIDE (GLUCOTROL XL) 5 mg 24 hr tablet Take 5 mg by mouth in the morning. active glipiZIDE (GLUCOTROL XL) 5 MG 24 hr tablet active bbivqqis-mdusqxanh-WV (CORTISPORIN) otic solution DIRECTED 2 DROPS AFFECTED EAR 3 TIMES A DAY X 1 WEEK active dhbmhonx-kkhjfuwkb-xub rocortisone (CORTISPORIN) 1 % Solution active docusate sodium (COLACE) 100 MG capsule Take 1 capsule (100 mg total) by mouth 2 (two) times a day. While taking pain medication to prevent constipation 2023 active ibuprofen (MOTRIN) 200 MG tablet Take 1 tablet (200 mg total) by mouth 4 times daily (every 6 hours) as needed for mild pain. HOLD. Resume only when cleared by Dr. Tai 2023 active naproxen sodium (ALEVE) 220 mg tablet Take 1 tablet (220 mg total) by mouth 2 (two) times a day with meals. HOLD. DO not restart until cleared by Dr. Tai 2023 active HYDROmorphone (DILAUDID) 2 MG tablet Take 1 tablet (2 mg total) by mouth 3 times daily (every 8 hours) as needed for severe pain. Max Daily Amount: 6 mg 2023 active docusate sodium (COLACE) 100 mg capsule TAKE 1 CAPSULE BY MOUTH 2 TIMES A DAY. WHILE TAKING PAIN MEDICATION TO PREVENT CONSTIPATION active Ozempic 2 mg/dose (8 mg/3 mL) subcutaneous pen injector inject 2 mg subcutaneously weekly active metoprolol succinate XL (TOPROL-XL) 200 mg 24 hr tablet Take 200 mg by mouth in the morning. active Ozempic, 2 MG/DOSE, 8 MG/3ML prefilled pen injection INJECT 2 MG SUBCUTANEOUSLY WEEKLY active Ozempic, 2 MG/DOSE, 8 MG/3ML prefilled pen injection Inject 2 mg under the skin once a week. Wednesdays active Atorvastatin Calcium 20 MG Oral Tablet Atorvastatin Calcium 20 MG Oral Tablet QTY: 90 tablet Days: 90 Refills: 0 Written: 05/07/24 Patient Instructions: active Sod Picosulfate-Mag Ox-Cit Acd (CLENPIQ) 10-3.5-12 MG-GM -GM/175ML Solution Take as directed 2023 active Ozempic (2 MG/DOSE) 8 MG/3ML Subcutaneous Solution Pen-injector Ozempic (2 MG/DOSE) 8 MG/3ML Subcutaneous Solution Pen-injector QTY: 3 mL Days: 30 Refills: 1 Written: 05/24/24 Patient Instructions: 2 mg SQ once weekly 2023 aborted amLODIPine Besylate 10 MG Oral Tablet amLODIPine Besylate 10 MG Oral Tablet QTY: 90 tablet Days: 90 Refills: 0 Written: 03/11/24 Patient Instructions: 2023 active amLODIPine (NORVASC) 10 mg tablet Take 10 mg by mouth. active amLODIPine (NORVASC) 10 mg tablet Take 1 tablet (10 mg total) by mouth daily. active amLODIPine (NORVASC) 10 mg tablet Take 1 tablet (10 mg total) by mouth daily. active amLODIPine (NORVASC) 10 MG tablet Take 1 tablet (10 mg total) by mouth daily. active Metoprolol Succinate ER 200 MG Oral Tablet, extended-release 24 hour Metoprolol Succinate ER 200 MG Oral Tablet Extended Release 24 Hour QTY: 90 tablet Days: 90 Refills: 0 Written: 03/08/24 Patient Instructions: 2023 completed atorvastatin (LIPITOR) 20 MG tablet Take 1 tablet (20 mg total) by mouth daily. 2024 active atorvastatin (LIPITOR) 20 mg tablet Atorvastatin Calcium 20 MG Oral Tablet QTY: 90 tablet Days: 90 Refills: 0 Written: 05/07/24 Patient Instructions: active atorvastatin (LIPITOR) 20 mg tablet Take 1 tablet (20 mg total) by mouth daily. active atorvastatin (LIPITOR) 20 mg tablet Take 1 tablet (20 mg total) by mouth daily. active Continuous Glucose Sensor (WeFi G7 Sensor) Misc Change sensor every 10 days 2024 active desloratadine (CLARINEX) 5 mg tablet Take 5 mg by mouth once daily as needed. active desloratadine (CLARINEX) 5 mg tablet Take 1 tablet (5 mg total) by mouth once daily as needed. active desloratadine (CLARINEX) 5 mg tablet Take 1 tablet (5 mg total) by mouth once daily as needed. active desloratadine (CLARINEX) 5 MG tablet Take 1 tablet (5 mg total) by mouth daily. active metFORMIN (GLUCOPHAGE) 1000 MG tablet Take 1 tablet (1,000 mg total) by mouth 2 (two) times a day. active metFORMIN (GLUCOPHAGE) 1000 MG tablet Take 0.5 tablets (500 mg total) by mouth every morning. active Ozempic (1 MG/DOSE) 4 MG/3ML Subcutaneous Solution Pen-injector Ozempic (1 MG/DOSE) 4 MG/3ML Subcutaneous Solution Pen-injector QTY: 3 mL Days: 30 Refills: 1 Written: 07/08/23 Patient Instructions: as directed 1 mg SQ once weekly 2022 aborted metFORMIN HCl ER (OSM) 1000 MG Oral Tablet Extended Release 24 Hour metFORMIN HCl ER (OSM) 1000 MG Oral Tablet Extended Release 24 Hour QTY: 90 tablet Days: 90 Refills: 0 Written: 07/08/23 Patient Instructions: take one tablet once a day 023 2022 aborted Ciprofloxacin HCl 250 MG Oral Tablet Ciprofloxacin HCl 250 MG Oral Tablet QTY: 14 tablet Days: 7 Refills: 0 Written: 04/27/24 Patient Instructions: take one tablet twice a day x 7 days 023 2023 aborted Ozempic (0.25 or 0.5 MG/DOSE) 2 MG/3ML Subcutaneous Solution Pen-injector Ozempic (0.25 or 0.5 MG/DOSE) 2 MG/3ML Subcutaneous Solution Pen-injector QTY: 6 mL Days: 30 Refills: 11 Written: 09/26/23 Patient Instructions: as directed 1mg sc 1x week. 023 2024 aborted Desloratadine 5 MG Oral Tablet Desloratadine 5 MG Oral Tablet QTY: 100 tablet Days: 100 Refills: 3 Written: 02/17/25 Patient Instructions: once a day 023 2024 active metFORMIN HCl 1000 MG Oral Tablet metFORMIN HCl 1000 MG Oral Tablet QTY: 0 tablet Days: 0 Refills: 0 Written: 03/26/24 Patient Instructions: 023 2023 aborted Ozempic (0.25 or 0.5 MG/DOSE) 2 MG/1.5ML Subcutaneous Solution Pen-injector Ozempic (0.25 or 0.5 MG/DOSE) 2 MG/1.5ML Subcutaneous Solution Pen-injector QTY: 1.5 mL Days: 30 Refills: 0 Written: 01/17/23 Patient Instructions: as directed 0.25 mg SC weekly x 4. 023 2022 completed metFORMIN HCl 500 MG Oral Tablet metFORMIN HCl 500 MG Oral Tablet QTY: 360 tablet Days: 90 Refills: 0 Written: 11/02/22 Patient Instructions: 023 2022 aborted metFORMIN (GLUCOPHAGE) 500 MG tablet Take 2 tablets (1,000 mg total) by mouth 2 (two) times a day. 2023 active Advair Diskus 500-50 MCG/ACT Inhalation Aerosol Powder Breath Activated Advair Diskus 500-50 MCG/ACT Inhalation Aerosol Powder Breath Activated QTY: 1 each Days: 30 Refills: 0 Written: 09/03/22 Patient Instructions: 1 inhalation BID 2022 completed Benzonatate 200 MG Oral Capsule Benzonatate 200 MG Oral Capsule, conventional QTY: 30 capsule Days: 10 Refills: 0 Written: 09/03/22 Patient Instructions: three times a day 2022 completed Paxlovid (300/100) 20 x 150 MG & 10 x 100MG Oral Tablet Therapy Pack Paxlovid (300/100) 20 x 150 MG & 10 x 100MG Oral Tablet Therapy Pack QTY: 30 tablet Days: 5 Refills: 0 Written: 09/03/22 Patient Instructions: 3 tabs po BID x 5 days 2022 completed Advair Diskus 500-50 MCG/ACT diskus inhaler Inhale 1 puff 2 (two) times a day. active fluticasone 500 mcg-salmeteroL 50 mcg/dose blistr powdr for inhalation Inhale 1 puff in the morning and 1 puff before bedtime. active amLODIPine (NORVASC) 5 MG tablet Take 1 tablet (5 mg total) by mouth daily. 2023 active uwtqobcs-gjrbmuhsi-IV (CORTISPORIN) 3.5-10,000-1 mg/mL-unit/mL-% otic suspension Administer 4 drops into affected ear(s). active mmswkxci-mifxoeraw-cxi rocortisone (CORTISPORIN) 3.5-11658-9 otic suspension Administer 4 drops to the right ear 3 (three) times a day. active amoxicillin-clavulanat e (AUGMENTIN) 875-125 MG per tablet Take 1 tablet by mouth 2 (two) times a day. Take as directed or until you run out 2024 active carvedilol (COREG) 12.5 MG tablet Take 25 mg by mouth 2 (two) times a day. 022 2022 active furosemide (LASIX) 20 MG tablet Take 1 tab PO daily for 5 days, then as directed 022 2023 active metoPROLOL SUCCINATE (TOPROL-XL) 200 MG 24 hr tablet TAKE 1 TABLET BY MOUTH EVERY DAY 022 2023 active hydroCHLOROthiazide 25 MG Oral Tablet hydroCHLOROthiazide 25 MG Oral Tablet QTY: 90 tablet Days: 90 Refills: 3 Written: 04/17/21 Patient Instructions: once a day 021 2023 active Lisinopril 40 MG Oral Tablet Lisinopril 40 MG Oral Tablet QTY: 90 tablet Days: 90 Refills: 3 Written: 04/17/21 Patient Instructions: once a day 021 2022 aborted Lisinopril-hydroCHLORO thiazide 20-12.5 MG Oral Tablet Lisinopril-hydroCHLORO thiazide 20-12.5 MG Oral Tablet QTY: 180 tablet Days: 90 Refills: 3 Written: 01/10/25 Patient Instructions: 2 once a day 021 2024 active Testosterone Cypionate 200 MG/ML Intramuscular Solution Testosterone Cypionate 200 MG/ML Intramuscular Solution QTY: 60 mL Days: 90 Refills: 0 Written: 03/22/21 Patient Instructions: as directedINJECT 250MG IM MONTHLY DIRECTED 021 2023 active Carvedilol 12.5 MG Oral Tablet Carvedilol 12.5 MG Oral Tablet QTY: 360 tablet Days: 90 Refills: 3 Written: 06/20/21 Patient Instructions: 2 twice a day 021 2020 active Cyclobenzaprine HCl 10 MG Oral Tablet Cyclobenzaprine HCl 10 MG Oral Tablet QTY: 15 tablet Days: 30 Refills: 0 Written: 03/13/21 Patient Instructions: 1 tablet three times daily as needed 021 2020 completed Carvedilol 12.5 MG Oral Tablet Carvedilol 12.5 MG Oral Tablet QTY: 180 tablet Days: 90 Refills: 0 Written: 03/09/21 Patient Instructions: twice a day 021 2020 completed Advair Diskus 250-50 MCG/DOSE Inhalation Aerosol Powder Breath Activated Advair Diskus 250-50 MCG/DOSE Inhalation Aerosol Powder Breath Activated QTY: 180 each Days: 90 Refills: 3 Written: 12/29/20 Patient Instructions: 1 puff twice a day 021 2023 active Cephalexin 500 MG Oral Capsule Cephalexin 500 MG Oral Capsule QTY: 0 capsule Days: 7 Refills: 0 Written: 11/02/20 Patient Instructions: 021 2020 completed Albuterol Sulfate HFA 108 (90 Base) MCG/ACT Inhalation Aerosol Solution Albuterol Sulfate HFA 108 (90 Base) MCG/ACT Inhalation Aerosol Solution QTY: 3 gram Days: 90 Refills: 0 Written: 01/31/21 Patient Instructions: 2 puffs every 4-6 hours prn cough *to replace uncovered Proair Respiclick* 021 2020 completed clotrimazole-betametha sone (LOTRISONE) cream Clotrimazole-Betametha sone 1-0.05% External Cream QTY: 45 gram Days: 30 Refills: 0 Written: 09/11/20 Patient Instructions: apply to affected area BID 021 active clotrimazole-betametha sone (LOTRISONE) cream Apply topically 2 (two) times a day. Apply to affected area 021 active Clotrimazole-Betametha sone 1-0.05% External Cream Clotrimazole-Betametha sone 1-0.05% External Cream QTY: 45 gram Days: 30 Refills: 0 Written: 09/11/20 Patient Instructions: apply to affected area BID 021 active Famotidine 40 MG Oral Tablet Famotidine 40 MG Oral Tablet QTY: 90 tablet Days: 90 Refills: 3 Written: 11/20/23 Patient Instructions: once a day 020 2024 active Zithromax Z-Monico 250 MG Oral Tablet Zithromax Z-Monico 250 MG Oral Tablet QTY: 6 tablet Days: 5 Refills: 0 Written: 01/17/23 Patient Instructions: as directed 020 2022 completed Mometasone Furoate 50 MCG/ACT Nasal Suspension Mometasone Furoate 50 MCG/ACT Nasal Suspension QTY: 3 device Days: 90 Refills: 2 Written: 10/11/19 Patient Instructions: 2 sprays in each nostril once a day 2019 completed Ciprodex 0.3-0.1% Otic Suspension Ciprodex 0.3-0.1% Otic Suspension QTY: 1 mL Days: 7 Refills: 0 Written: 04/23/23 Patient Instructions: as directed 4 gttts in affected ear bid x 7 days 2022 aborted Amoxicillin-Pot Clavulanate 875-125 MG Oral Tablet Amoxicillin-Pot Clavulanate 875-125 MG Oral Tablet QTY: 20 tablet Days: 10 Refills: 0 Written: 04/24/23 Patient Instructions: take one tablet twice a day x 10 days 2022 completed albuterol sulfate (ProAir RespiClick) 90 mcg/actuation aerosol powdr breath activated TAKE 2 PUFFS EVERY 4 TO 6 HOURS NEEDED active PROAIR RESPICLICK 108 (90 Base) MCG/ACT inhaler TAKE 2 PUFFS EVERY 4 TO 6 HOURS NEEDED active ProAir RespiClick 108 (90 Base) MCG/ACT Inhalation Aerosol Powder Breath Activated ProAir RespiClick 108 (90 Base) MCG/ACT Inhalation Aerosol Powder Breath Activated QTY: 3 each Days: 90 Refills: 0 Written: 10/23/20 Patient Instructions: 2 puffs every 4-6 hours prn Pt of Dr. Casanova 2020 aborted Medrol 4 MG Oral Tablet Therapy Pack Medrol 4 MG Oral Tablet Therapy Pack QTY: 1 pack Days: 5 Refills: 0 Written: 10/15/19 Patient Instructions: as directed 019 2019 completed testosterone cypionate (DEPO-TESTOSTERONE CYPIONATE) 200 mg/mL injection Inject 200 mg into the shoulder, thigh, or buttocks every 28 days (4 weeks). 019 2023 active Sertraline HCl 25 MG Oral Tablet Sertraline HCl 25 MG Oral Tablet QTY: 180 tablet Days: 90 Refills: 1 Written: 08/02/24 Patient Instructions: 2 once a day 019 2024 completed sertraline (ZOLOFT) 25 mg tablet Take 50 mg by mouth. active sertraline (ZOLOFT) 25 MG tablet Take 2 tablets (50 mg total) by mouth every morning. active traZODone HCl 50 MG Oral Tablet traZODone HCl 50 MG Oral Tablet QTY: 180 tablet Days: 90 Refills: 0 Written: 10/02/20 Patient Instructions: 2 once a day 019 2020 completed Sertraline HCl 25MG Oral Tablet Sertraline HCl 25 MG Oral Tablet QTY: 90 tablet Days: 45 Refills: 0 Written: 02/22/19 Patient Instructions: as directed 2 po daily 2018 completed Zoloft 25MG Oral Tablet Zoloft 25 MG Oral Tablet QTY: 90 tablet Days: 90 Refills: 0 Written: 02/22/19 Patient Instructions: once a day x 2 weeks , then increase to 2 tabs in am. 2018 aborted OneTouch Ultra In Vitro Strip OneTouch Ultra In Vitro Strip QTY: 100 strip Days: 90 Refills: 3 Written: 11/12/23 Patient Instructions: Test sugar daily in AM 019 2024 active levocetirizine (XYZAL) 5 MG tablet Take 1 tablet (5 mg total) by mouth daily. 019 2023 active Xyzal Allergy 24HR 5 MG Oral Tablet Xyzal Allergy 24HR 5 MG Oral Tablet QTY: 90 tablet Days: 90 Refills: 3 Written: 05/28/22 Patient Instructions: once a day 019 2022 aborted traZODone HCl 50MG Oral Tablet traZODone HCl 50 MG Oral Tablet QTY: 30 tablet Days: 30 Refills: 0 Written: 02/18/19 Patient Instructions: once a day 019 2018 completed traZODone (DESYREL) 50 MG tablet Take 100 mg by mouth nightly as needed for sleep. active Lisinopril-hydroCHLORO thiazide 20-12.5 MG Oral Tablet Lisinopril-hydroCHLORO thiazide 20-12.5 MG Oral Tablet QTY: 135 tablet Days: 90 Refills: 0 Written: 01/15/21 Patient Instructions: 1.5 tabs day Pt of Dr. Casanova 2020 completed lisinopril-hydrochloro thiazide (PRINZIDE,ZESTORETIC) 20-12.5 MG per tablet Take 2 tablets by mouth daily. active lisinopril-hydroCHLORO thiazide (PRINZIDE,ZESTORETIC) 20-12.5 mg per tablet Take 2 tablets by mouth daily. active lisinopril-hydroCHLORO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
--- OUTSIDE RECORDS SUMMARY | 2025-08-05 22:17 | XMS_ITS | Encounter Summary ---
Author Organization [facility] Address [address] [place] [address] Care Team Providers Care Cor[employer] Cadet Name Role Phone Lawrence Casanova MD Primary Care Provider [phone] Lydia Wyman DO Unavailable [phone] Katelin Frazier RN Unavailable Erick House DO Unavailable [phone] Sharita Pearson RN Unavailable [phone] Encounter Details Date Type Department Care Team (Late st Contact Info) Description 09/10/2024 Scanned Document [facility] Home [address] [id number] Provider, Generic Social History Tobacco Use Types Packs/Day Years Used Date Smoking Tobacco: Never Smokeless Tobacco: Never Alcohol Use Standard Drinks/Week Comments No 0 (1 standard drink = 0.6 oz pur e alcohol) [facility] Utilities Answer Date Recorded In the past 12 months has [employer], gas, oil, or water company threatened to shut off services in your home? No 08/20/2024 [employer]C Answer Date Recorded Q1: How often do you have a drink containing alcohol? Never 08/03/2024 Q2: How many drinks containi ng alcohol do you have on a typical day when you are drinking? Patient does not drink 11/26/202 4 Q3: How often do you have si [...] in the past 12 m [facility], were you homeless or living in [...] on filedocumented in this encounter Care Teams [employer] Relationship Specialty Start Date End Date Lawrence Casanova MD [address] [place] [address] PCP - General Family Medicine 04/07/19 Lydia Wyman DO [address] [place] [address] [employer] Cardiovascular Disease 10/18/21 Katelin Frazier, RN [address] [phone] Oncology Nurse Navigator 07/29/24 Erick House DO [address] [address] Physician Hematology Oncology 07/29/25 Sharita Pearson RN [address] [phone] Oncology Nurse Navigator 07/29/25 documented as of this encounter
--- OUTSIDE RECORDS SUMMARY | 2025-08-05 22:17 | XMS_ITS | Clinical Summary ---
Author Organization [facility] Address [address] [place] [address] Care Team Providers Care Shuttle Veneering Supervisor Name Role Phone Maurice Padilla MD Primary Care Provider [phone] Allergies Active Allergy Reactions Criticality Noted Date Comments Oxycodone-Acetaminophen Itching Medium 06/11/2017 Stomach itches Medications Medication Sig Dispensed Refills Start Date End Date Status Pancrelipase, Zjm-Bjpc-Issv, (CREON PO)Indications:also one tab with snacks Take 2 tablets by mouth 3 (three) times a day before meals. 0 Active valACYclovir (VALTREX) 500 MG tablet Take 500 mg by mouth daily. 0 Active metFORMIN (GLUCOPHAGE) tablet 500 mg Take 500 mg by mouth every morning with breakfast. 0 Active ranitidine (ZANTAC) 300 MG tablet Take 300 mg by mouth daily. 0 Active naproxen (NAPROSYN) 250 MG tablet Take 250 mg by mouth 2 (two) times a day with meals. 0 Active tadalafil (CIALIS) 10 MG tablet Take 10 mg by mouth daily as needed for erectile dysfunction. 0 Active lisinopril 20 MG TABS 1 tablet, hydrochlorothiazide 12.5 MG CAPS 1 capsule Take 1 tablet by mouth daily. 0 Active metoprolol succinate (TOPROL-XL) 24 hr tablet 100 mg Take 150 mg by mouth daily. 0 Active VITAMIN C, CALCIUM ASCORBATE, PO Take by mouth. 0 Active Multiple Vitamins-Minerals (MULTIVITAMIN & MINERAL PO) Take by mouth. 0 Active acetaminophen (TYLENOL) 325 MG tablet Take 650 mg by mouth every 6 (six) hours as needed for pain. 0 Active Melatonin 3 MG CAPS Take 6 mg by mouth every night at bedtime as needed. 0 Active diphenhydrAMINE (BENADRYL) 25 mg capsule Take 25 mg by mouth every night at bedtime as needed for itching. 0 Active clotrimazole (LOTRIMIN) 1 % cream Apply topically daily as needed (jock itch). 0 Active albuterol (PROVENTIL HFA;VENTOLIN HFA) 108 (90 BASE) MCG/ACT inhaler Inhale 2 puffs into the lungs every 6 (six) hours as needed for wheezing. 0 Active mometasone (NASONEX) 50 MCG/ACT nasal spray spray or apply 2 sprays inside Nose daily. 0 Active Social History Tobacco Use Types Packs/Day Years Used Date Smoking Tobacco: Never Alcohol Use Standard Drinks/Week Comments No 0 (1 standard drink = 0.6 oz pur e alcohol) Sex and Gender Information Value Date Recorded Sex Assigned at Not on file Gender Identity Not on file Sexual Orientation Not on file Last Filed Vital Signs Vital Sign Reading Time Taken Comments Blood Pressure 128/78 06/12/2017 2:47 PM EDT Pulse 59 06/12/2017 2:47 PM EDT Temperature 36.2 C (97.2 F) 06/12/2017 2:30 PM EDT Respiratory Rate 16 06/12/2017 2:47 PM EDT Oxygen Saturation 96% 06/12/2017 2:47 PM EDT Inhaled Oxygen Concentration - - Weight 109.8 kg (242 lb) 06/11/2017 11:20 AM EDT Height 176.5 cm (5' 9.5 ) 06/11/2017 11:20 AM ED T Body Mass Index 35.22 06/11/2017 11:20 AM EDT Plan of Treatment Not on file Care Teams Shuttle Veneering Supervisor Relationship Specialty Start Date End Date Maurice Padlila MD [address] [place] [id number] PCP - General Wet Process Miller Head Assistant 06/05/17
--- OUTSIDE RECORDS SUMMARY | 2025-08-05 22:17 | XMS_ITS | Encounter Summary ---
Author Organization [facility] Address [address] [place] [address] Care Team Providers Care Fitness Teacher Name Role Phone Lawrence Casanova MD Primary Care Provider [phone] Lydia Wyman DO Unavailable [phone] Kaetlin Frazier RN Unavailable [phone] Erick House DO Unavailable [phone] Sharita Pearson RN Unavailable [phone] Encounter Details Date Type Department Care Team (Late st Contact Info) Description 08/27/2024 Scanned Document [facility] at Home [address] [address] Provider, Generic Social History Tobacco Use Types Packs/Day Years Used Date Smoking Tobacco: Never Smokeless Tobacco: Never Alcohol Use Standard Drinks/Week Comments No 0 (1 standard drink = 0.6 oz pur e alcohol) [facility] Utilities Answer Date Recorded In the past 12 months has [employer], gas, oil, or water company threatened to [...] in the past 12 m [facility], were you homeless or living in a nursing home (including now)? No 08/20/2024 Sex and [...] on filedocumented in this encounter Care Teams Fitness Teacher Relationship Specialty Start Date End Date Lawrence Casanova MD [address] [place] [address] PCP - General Family Medicine 04/07/19 Lydia Wyman DO [address] [place] [id number] Primary Long Winder Tender Cardiovascular Disease 10/18/21 Katelin Frazier, RN [address] [id number] Oncology Nurse Navigator 07/29/24 Erick House DO [address] [address] Physician Hematology Oncology 07/29/25 Sharita Pearson RN [address] [phone] Oncology Nurse Navigator 07/29/25 documented as of this encounter
--- OUTSIDE RECORDS SUMMARY | 2025-08-05 22:17 | XMS_ITS | Encounter Summary ---
Author Organization [facility] Address [address] [place] [address] Care Team Providers Care Mechanical Engineering Director Name Role Phone Lawrence Casanova MD Primary Care Provider [phone] Lydia Wyman DO Unavailable [phone] Katelin Frazier RN Unavailable [phone] Erick House DO Unavailable [phone] Sharita Pearson RN Unavailable [phone] Encounter Details Date Type Department Care Team (Late st Contact Info) Description 08/26/2024 Scanned Document [facility] at Home [address] [address] Provider, Generic Social History Tobacco Use Types Packs/Day Years Used Date Smoking Tobacco: Never Smokeless Tobacco: Never Alcohol Use Standard Drinks/Week Comments No 0 (1 standard drink = 0.6 oz pur e alcohol) [facility] Utilities Answer Date Recorded In the past 12 months has [employer], gas, oil, or water company threatened to [...] any time in the past 12 m [facility], were you homeless or living in [...] on filedocumented in this encounter Care Teams Mechanical Engineering Director Relationship Specialty Start Date End Date Lawrence Casanova MD [address] [place] [address] PCP - General Family Medicine 04/07/19 Lydia Wyman DO [address] [place] [id number] Primary Under Baster Cardiovascular Disease 10/18/21 Katelin Frazier, RN [address] [phone] Oncology Nurse Navigator 07/29/24 Erick House DO [address] [address] Physician Hematology Oncology 07/29/25 Sharita Pearson RN [address] [phone] Oncology Nurse Navigator 07/29/25 documented as of this encounter
[2025-08-05 22:36] LABS: Cannabinoid Screen Urine Not Detected (Not Detect)
--- NOTE | 2025-08-05 23:00 | ED_ITS ---
HPI - Dizziness General Chief Complaint: Syncope Stated Complaint: dizziness Time Seen by Provider: 08/05/25 21:46 Source: patient and family Mode of arrival: ambulatory Limitations: no limitations History of Present Illness ED Provider: Dr. Delmy Machado HPI Narrative: patient comes to the emergency room stating that an hour prior to arrival, he was laughing, had a strong coughing fit and passed out. According to the patient, the patient hit his head on the ground. The patient's states that he had rolling of the eye movement for a few sec, and seemed to be confused for couple of minutes. Patient does not take any blood thinners. Patient states that he has been recovering 4 months from a concussion and is undergoing physical therapy. Patient states that this fall worsen his symptoms and now has nausea lightheadednes . Patient states that even before this all happened, he never experienced any chest pain or shortness of breath. Related Data Previous Rx's ?Medication ?Instructions ?Recorded metoclopramide HCl 5 mg tablet 5 mg PO BID PRN nausea and 08/06/25 (Reglan) vomiting #10 tabs sumatriptan succinate 100 mg tablet See Rx Instruction s PO .COMPLEX 08/06/25 #10 tabs Allergies Allergy/AdvReac Type Severity Reaction Status Date / Time acetaminophen (From Percocet) Allergy Itching Verified 08/05/25 21:41 oxycodone (From Percocet) Allergy Itching Verified 08/05/25 21:41 Review of Systems 2 Review of Systems: Constitutional : No Weight loss, No Fever, No Chills, No Night Sweats, No Fatigue, No Malaise ENT/Mouth : No Hearing loss, No Ear Pain, No Nasal Congestion, No Sinus Pain, No Hoarseness, No sore throat, No Rhinorrhea, No Swallowing Difficulty Eyes: No Eye Pain, No Swelling, No Redness, No Foreign Body, No Discharge, No Vision Changes Cardiovascular : No Chest Pain, No SOB, No Dyspnea on Exertion, No Orthopnea, No Edema, No Palpitations Respiratory : No Cough, No Sputum, No Wheezing, No Smoke Exposure, No Dyspnea Gastrointestinal : No Nausea, No Vomiting, No Diarrhea, No Constipation, No abdominal Pain, No Hematochezia, No Melena Genitourinary : no irregular bleeding, No Dysuria, No Urinary Frequency, No Hematuria, No Urinary Incontinence, No Urgency, No Flank Pain, No Urinary Flow Changes, No Hesitancy Musculoskeletal : No joint pain, No Myalgias, No Joint Swelling Skin : No Skin Lesions, No rash Neuro : No Weakness, No Numbness, No Paresthesias, complaining of an episode of lightheadedness and syncope after a coughing fit, No Dizziness, No Headache Psych : No Anxiety/Panic, No Depression, No SI/HI/AH/VH, No Social Issues, Heme/Lymph: No Bruising, No Bleeding,No Lymphadenopathy Endocrine : No Polyuria, No Polydipsia, No Temperature Intolerance [facility] Past Medical History Medical History (Updated 08/06/25 @ 00:38 by Delmy Machado MD) Hypertension Type 2 diabetes mellitus Concussion Social History Social History Smoked in Last 30 Days: No Use of substances other than those prescribed or required for medical reasons: No Advance Directives: No Advance Directives Information Provided: No Physical Exam 2 Exam: Exam: Appearance: Alert. Oriented X3. No acute distress. Eyes: Pupils equal, round and reactive to light. ENT: Pharynx normal. Neck: Normal inspection. Neck supple. No lymph nodes noted. No crepitus CVS: Normal heart rate and rhythm. Pulses normal. Normal S1 and S2 Respiratory: No respiratory distress. Breath sounds normal. No Wheezing. No rales Abdomen: Soft and nontender. No rigidity. No distention. Skin: Skin warm and dry. Normal skin color. Normal skin turgor. small ecchymosis to the lateral aspect of the face of the left side Extremities: No lower extremity edema. No Lacerations. No Rash Neuro: Oriented X 3. No motor deficit. No sensory deficit. Moving all extremities. No slurred speech. CN 2 through 12 grossly intact Psych: calm, cooperative, normal affect Vital Signs: Vital Signs: Last Vital Signs Temp 97.5 F 08/05/25 21:35 Pulse 66 08/05/25 21:35 Resp 20 08/05/25 21:35 BP 164/95 H 08/05/25 21:35 Pulse Ox 96 08/05/25 22:15 O2 Del Method Room Air 08/05/25 22:15 BMI result Body Mass Index 44.4 Course Course Course Narrative: patient known to be recovering, concussion, no worsened by this episode of syncope and head strike. Patient patient's description of symptoms, seems that patient had a vasovagal syncope. Medications Administered Discontinued Medications Generic Name Dose Route Start Last Admin Trade Name Ramila PRN Reason Stop Dose Admin Diphenhydramine HCl 25 mg 08/05/25 22:58 08/05/25 23:19 Diphenhydramine Hcl 50 Mg/Ml Vial IVPUSH 08/05/25 22:59 25 mg ONCE ONE Administration Sodium Chloride 1,000 mls @ 999 mls/hr 08/05/25 22:58 08/05/25 23:12 Ns IVCONT 08/05/25 23:58 999 mls/hr .Q1H1M ONE Administration Metoclopramide HCl 10 mg 08/05/25 22:58 08/05/25 23:18 Metoclopramide Hcl 10 Mg/2 Ml Vial IVPUSH 08/05/25 22:59 10 mg ONCE ONE Administration Morphine Sulfate 4 mg 08/05/25 22:58 08/05/25 23:19 Morphine Sulfate 4 Mg/Ml Cartridge IVPUSH 08/05/25 22:59 4 mg ONCE ONE Administration Protocol Medical Decision Making Medical Decision Making [facility] Narrative: CT scan of the head does not show any acute abnormalities. My interpretation of labs: Patient's white blood cell count 15, likely reactive leukocytosis, no abnormality in patient's chemistry after receiving IV medication mentioned above, patient states that he does feel better. Patient states that he has an appointment pending in 2 weeks with a concussion/neurology specialist. Differential Diagnosis Differential Diagnoses: The differential diagnosis associated with the presentation includes ( Orthostatic hypotension, vasovagal syncope, hit concussion, intracranial bleed) Admission/Observation Consideration of admission/observation: Escalation of care including admission/observation considered ( given patient's symptoms and history, observation was considered) Lab Data [facility] Lab Attestation statement: I reviewed the patient's lab results. 08/05/25 21:49 08/05/25 21:49 Labs: Lab Results 08/05/25 08/05/25 Range/Units 21:49 22:16 WBC 15.0 H (4.8-10.8) X10*3/uL RBC 5.25 (4.60-5.80) X10*6/uL Hgb 14.1 (14.0-18.0) g/dl Hct 42.4 (42.0-52.0) % MCV 80.8 (80.0-98.0) fL MCH 26.9 L (27.0-33.0) pg MCHC 33.3 (31.0-36.0) g/dl RDW 17.0 H (11.0-16.0) % Plt Count 413 H (160-400) X10*3/uL MPV 9.8 (9.4-12.4) fL Immature Gran % (Auto) 1.1 H (0.0-0.4) % Neut % (Auto) 64.4 (45-73) % Lymph % (Auto) 21.1 (20-40) % Orange % (Auto) 11.9 H (2-11) % Eos % (Auto) 1.1 (0-4) % Baso % (Auto) 0.4 (0-2) % Lymph # (Auto) 3.2 (1.2-4.9) X10*3/uL Orange # (Auto) 1.8 H (0.1-1.2) X10*3/uL Eos # (Auto) 0.2 (0.0-0.4) X10*3/uL Baso # (Auto) 0.1 (0.0-0.2) X10*3/uL Abs Immat Gran (auto) 0.16 H (0.00-0.03) X10*3/uL Absolute Neuts (auto) 9.7 H (2.0-8.3) x10*3/uL Absolute Nucleated RBC 0.000 (0.0-0.012) X10*3/uL Nucleated RBC % (auto) 0.0 (0.0-0.2) /100WBC Sodium 135 (135-145) mmol/L Potassium 3.7 (3.3-5.1) mmol/L Chloride 102 (96-108) mmol/L Carbon Dioxide 23 (22-29) mmol/L Anion Gap 14 (12-20) BUN 27 H (9-16) mg/dL Creatinine 1.14 (0.5-1.4) mg/dL Estim Creat Clear Calc 92.1 Estimated GFR > 60 Random Glucose 134 H (60-115) mg/dL Calcium 8.9 (8.4-10.2) mg/dL Total Bilirubin 0.3 (0.0-1.0) mg/dL AST 14 (5-37) U/L ALT 29 (0-40) U/L Alkaline Phosphatase 127 H (39-117) U/L Total Creatine Kinase 168 (38-174) U/L Troponin I High Sens 3.8 (<3.5-35.0) ng/L Total Protein 6.7 (6.5-8.0) g/dL Albumin 4.2 (3.5-5.0) g/dL Urine Opiates Screen Not Detected (Not Detect) Ur Buprenorphine Scrn Not Detected (Not Detect) ng/mL Ur Oxycodone Screen Not Detected (Not Detect) ng/mL Urine Methadone Screen Not Detected (Not Detect) ng/mL Urine Fentanyl Screen Not Detected (Not Detect) Ur Barbiturates Screen Not Detected (Not Detect) Ur Phencyclidine Scrn Not Detected (Not Detect) Ur Amphetamines Screen Not Detected (Not Detect) U Benzodiazepines Scrn Not Detected (Not Detect) Urine Cocaine Screen Not Detected (Not Detect) U Marijuana (THC) Screen Not Detected (Not Detect) Ethyl Alcohol < 10 mg/dL Independent Interpretation I performed an independent interpretation of an: CT Scan Radiology Impression Discussion of test interpretation with radiology: I have reviewed the radiologist's reading. Radiologist Impression: No intra-axial mass, midline shift, hydrocephalus, or acute hemorrhage. No significant atrophy-like change or white matter disease. The visualized paranasal sinuses and mastoid air cells are normal. The orbits are unremarkable. No skull fracture. IMPRESSION: 1. No acute intracranial findings. Critical Care Time Critical Care Time Critical Care Time: Yes Total Critical Care Time: 35 Attestation: I have personally provided critical care time. Time includes review of lab data, radiology results, discussion with consultants, and monitoring for potential decompensation. Intervention performed as documented. Discharge Plan Discharge Clinical Impression: Vasovagal syncope, Concussion Patient Disposition: Home, Self-Care Instructions: Syncope (ED), Concussion (ED) Additional Instructions: Please follow-up with your primary care physician tomorrow. If you have any worsening or new symptoms, please return to the emergency room or call 911 Prescriptions: New sumatriptan succinate 100 mg tablet See Rx Instructions .ROUTE .COMPLEX Qty: 10 0RF Rx Instructions: take 1 tab at onset of headache; if no relief, may repeat 1 tab after at least 2 hrs; max = 2 tabs/24 hrs metoclopramide HCl [Reglan] 5 mg tablet 5 mg PO BID PRN (Reason: nausea and vomiting) Qty: 10 0RF Rx Instructions: take together with sumatriptan p.r.n. severe headache Print Language: Vincentian
[2025-08-06 00:58] VITALS: BP 120/78; PULSE 67; RESP 18; TEMP 37; O2SAT 94
== END 2025-08-06 01:09 | disposition home or self-care (01) ==
PROVIDERS: Emergency Provider Emergency Medicine
DX: S06.0X0A Concussion without loss of consciousness, initial encounter (principal); R55 Syncope and collapse; R42 Dizziness and giddiness; R11.0 Nausea; X58.XXXA Exposure to other specified factors, initial encounter; Y93.9 Activity, unspecified; Y92.9 Unspecified place or not applicable; Y99.8 Other external cause status; Z51.81 Encounter for therapeutic drug level monitoring
CPT/HCPCS: 36415; 70450; 80053; 80307; 82550; 84484; 85025; 93005; 96361; 96374; 96375; 99284; 99285; J1200; J2270; J2765

== ENCOUNTER → 2025-08-05 21:43 | Outpatient (BNV) | payer BC, SELFPAY | PROVIDERS: Emergency Provider Emergency Medicine; Visit Provider Internal Medicine | DX: R42 Dizziness and giddiness (principal) | CPT/HCPCS: 93010 ==

== ENCOUNTER → 2025-08-05 21:46 | Outpatient (BNV) | payer BC, SELFPAY | PROVIDERS: Emergency Provider Emergency Medicine; Visit Provider Radiology Diagnostic Radiology | DX: S09.90XA Unspecified injury of head, initial encounter (principal); R55 Syncope and collapse; R11.2 Nausea with vomiting, unspecified | CPT/HCPCS: 70450 ==